=== PATIENT | male | born 1945 | race Caucasian/White ===

== ENCOUNTER → 2017-07-26 13:21 | Outpatient (POV) | payer MEDICARE, OTHER, SELFPAY | PROVIDERS: PCP Internal Medicine; Visit Provider Internal Medicine Nephrology | DX: Z00.00 Encounter for general adult medical examination without abnormal findings (principal) ==

== ENCOUNTER → 2017-12-10 10:49 | Outpatient (CLI) | payer MEDICARE, OTHER, SELFPAY | PROVIDERS: PCP Internal Medicine; Visit Provider Internal Medicine | DX: R55 Syncope and collapse (principal) | CPT/HCPCS: 93005 ==

== ENCOUNTER → 2018-02-28 13:44 | Outpatient (POV) | payer MEDICARE, OTHER, SELFPAY | PROVIDERS: PCP Internal Medicine; Visit Provider Internal Medicine Nephrology | DX: Z00.00 Encounter for general adult medical examination without abnormal findings (principal) ==

== ENCOUNTER → 2018-03-12 09:34 | Outpatient (CLI) | payer MEDICARE, OTHER, SELFPAY ==
--- NOTE | 2018-03-12 09:45 | XR_ITS ---
XR hip LT 2-3V w/pelvis HISTORY: ITS.REASON: LT HIP PAIN ORDERING PHYSICIAN: Adi Pickard PATIENT AGE: 72 years COMPARISON: None FINDINGS: Osteoarthritic changes are present involving the left hip with decrease in the joint space osteosclerosis and osteophyte formation. In addition, there is subchondral lucency in the immediate subchondral portion of the left femoral head with some minimal flattening of the left femoral head on the abduction view. There is also a larger area of subchondral lucency which measures approximately 2.3 cm. There is osteosclerosis of the femoral head is well. There are no previous exams available for comparison. The findings are consistent with avascular sclerosis of the left hip. The larger subchondral lucency may represent a subchondral cyst. Consider MRI for more thorough evaluation. IMPRESSION: 1. There is osteoarthritis of the left hip with a prominent subchondral lucency at 2.3 cm which may represent a subchondral cystic area. 2. Also suspected avascular necrosis of the left femoral head. Consider MRI for confirmation
== END ==
PROVIDERS: PCP Internal Medicine; Visit Provider Internal Medicine
DX: M25.552 Pain in left hip (principal)
CPT/HCPCS: 73502

== ENCOUNTER → 2018-03-21 12:54 | Outpatient (CLI) | payer MEDICARE, OTHER, SELFPAY ==
--- NOTE | 2018-03-21 12:57 | MR_ITS ---
MR hip LT wo con HISTORY: Left hip pain when walking, abnormal radiograph ITS.REASON: LEFT HIP PAIN ORDERING PHYSICIAN: Adi Pickard PATIENT AGE: 72 years COMPARISON: 03/12/2018 TECHNIQUE: Routine multiplanar multiecho sequences are performed without contrast. FINDINGS: There are moderate to severe osteoarthritic changes. There is a 2 cm geographic area of abnormal signal intensity involving the 12:00 region of the femoral head on the left. This is iso to hypointense on T1 and hyperintense on T2 with a central area of decreased T2 signal. There is a peripheral rim of decreased T1 and T2 signal. There is some mild cortical collapse involving the superior aspect of the femoral head. Bone marrow edema is present in the left femoral head and neck. There is a small left hip joint effusion. Edema is also present within the left iliopsoas muscle and just deep to the fascia of the muscle. Small amount of fluid is present in the left inguinal region. A small amount of fluid is present in the right hip joint as well. The right hip has an unremarkable appearance. IMPRESSION: 1. 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 Left hip joint effusion with edema of the left femoral head and neck as well as edema of the left iliopsoas muscle and muscles about the left hip. Small amount fluid is present in the left inguinal region. 3. The right hip has an unremarkable appearance aside from a small right hip joint effusion
== END ==
PROVIDERS: PCP Internal Medicine; Visit Provider Internal Medicine
DX: M25.552 Pain in left hip (principal)
CPT/HCPCS: 73721

== ENCOUNTER → 2018-03-22 12:24 | Outpatient (CLI) | payer MEDICARE, OTHER, SELFPAY ==
--- NOTE | 2018-03-22 12:47 | XR_ITS ---
EXAM: XR cervical spine 5V HISTORY: ITS.REASON: NECK PAIN/STIFFNESS, HEADACHE ORDERING PHYSICIAN: Adi Pickard PATIENT AGE: 72 years COMPARISON: Cervical spine 06/24/2007. FINDINGS: Normal alignment. No fracture or dislocation. No lytic or blastic change. There is disc space narrowing at the C5-6 and C6-7 levels with anterior ossific spurring noted. There is mild neural foraminal narrowing on the left side C5-6 level secondary to spurring of the uncinate joints. The prevertebral soft tissues are normal and the odontoid is normal. IMPRESSION: Mild degenerative disc disease C5-6 and C6-7, no acute pathology identified
[2018-03-22 12:55] LABS: Basophils % 0.5 % (0.1-2.0); Eosinophils # 0.1 K/mm3 (0.0-0.4); Eosinophils % 1.6 % (0.1-12.0); Hematocrit 47.5 % (42.0-52.0); Hemoglobin 15.1 g/dL (14.1-18.0); Lymphocytes # 1.7 K/mm3 (0.7-4.5); Lymphocytes % 21.3 K/mm3 (10-50); Mean Corpuscular HGB Conc 31.9 g/dL (31.8-35.4); Mean Corpuscular Hemoglobin 28.6 pg (27.0-31.2); Mean Corpuscular Volume 89.9 fl (80-94); Mean Platelet Volume 7.1 fl (7.4-10.4); Monocytes # 0.5 K/mm3 (0.1-1.0); Monocytes % 6.6 % (1.7-9.3); Neutrophils # 5.4 K/mm3 (1.8-7.8); Neutrophils % 69.9 % (37.0-80.0); Platelet Count 197 K/mm3 (142-424); Red Blood Count 5.29 M/mm3 (4.60-6.20); Red Cell Distribution Width 12.9 % (11.5-17.5); White Blood Count 7.7 K/mm3 (4.8-10.8)
[2018-03-22 13:31] LABS: Anion Gap 13.9 mEq/L (5-15); Blood Urea Nitrogen 37 mg/dL (7-18); Calcium 8.9 mg/dL (8.5-10.1); Carbon Dioxide 27 mmol/L (21.0-32.0); Chloride 107 mmol/L (98-107); Creatinine,Serum 1.75 mg/dL (0.70-1.30); Estimated Glomerular Filt Rate 39 ml/min (>60); GFR (African American) 47 ML/MIN (>60); Glucose 143 mg/dL (74-106); Potassium 4.9 mmoL/L (3.5-5.1); Sodium 143 mmol/L (136-145)
[2018-03-22 13:42] LABS: Erythrocyte Sedimentation Rate 65 mm/hr (0-20)
== END ==
PROVIDERS: PCP Internal Medicine; Visit Provider Internal Medicine
DX: M54.2 Cervicalgia (principal); R51 Headache; M43.6 Torticollis
CPT/HCPCS: 36415; 72050; 80048; 85025; 85651

== ENCOUNTER 2018-08-15 08:00 | Outpatient (RCR) | payer MEDICARE, BC, SELFPAY | END 2018-08-15 08:05 | disposition home or self-care (01) | LOC: OT 08:00 | PROVIDERS: Visit Provider Orthopaedic Surgery | DX: M25.511 Pain in right shoulder (principal) | CPT/HCPCS: 97014; 97110; 97164; 97165; G0283 ==

== ENCOUNTER → 2018-09-05 13:18 | Outpatient (CLI) | payer MEDICARE, BC, SELFPAY ==
--- NOTE | 2018-09-05 13:24 | MR_ITS ---
MR shoulder RT wo con COMPARISON: None HISTORY: Severe right shoulder pain ORDERING PHYSICIAN: Adi Pickard PATIENT AGE: 72 years TECHNIQUE: Routine multiplanar multiecho sequences are performed without contrast. FINDINGS: There is prominent acromioclavicular hypertrophy with impingement upon the junction of the supraspinatus muscle and tendon causing severe subacromial stenosis. Complete tears present involving the supraspinatus tendon with mild retraction of the musculotendinous fibers posteriorly with high riding humeral head. Subarticular cystic change involves the humeral head posteriorly. The infraspinatus tendon appears intact as does the subscapularis and teres minor tendon. No obvious labral tear. There is mild degree of motion artifact which somewhat obscures fine detail. There is a small shoulder joint effusion. Mild osteoarthritic changes are present at the glenohumeral joint. IMPRESSION: 1. Acromioclavicular arthropathy with bony hypertrophic change with impingement upon the musculotendinous junction of the supraspinatus tendon and muscle with impingement 2. Complete tear of the supraspinatus tendon with mild retraction of the tendon fibers with high riding humeral head 3. Osteoarthritic change of the shoulder with effusion
--- NOTE | 2018-09-05 13:24 | MR_ITS ---
MR cervical spine wo con, MR 3-d myelogram/MRCP HISTORY: Severe neck pain and RT shoulder pain X 6 months. RT arm pain. Getting worse ITS.REASON: NECK PAIN, RIGHT SHOULDER PAIN, WEAKNESS ORDERING PHYSICIAN: Adi Pickard PATIENT AGE: 72 years Comparison: X-RAY 03/22/18 TECHNIQUE: Standard multiplanar multiecho sequences are performed without contrast. 3-D MIP and myelographic images are also rendered and reviewed FINDINGS: There is normal alignment. Craniocervical junction has an unremarkable appearance. C2-C3: Mild prominence of the posterior longitudinal ligament without impingement. C3-C4: Mild degenerative disc disease with minimal disc protrusion in the left paracentral foraminal region with mild left-sided foraminal narrowing. C4-C5: Mild degenerative disc disease with minimal left foraminal narrowing from uncovertebral and facet hypertrophy. There is narrowing of the canal without impingement. C5-C6: Degenerative disc disease with bulging discs/disc osteophyte complex with canal stenosis of 7 mm with mild flattening of the cord anteriorly. There is bilateral lateral recess and foraminal narrowing from uncovertebral hypertrophy appear somewhat more severe on the left. C6-C7: Degenerative disc disease with bulging disc/disc osteophyte complex with canal stenosis of 7 mm with mild flattening of the cord anteriorly. There are slight increase in T2 signal of the cord at this area which could be related to some gliotic change. There is bilateral foraminal narrowing and lateral recess narrowing from the facet and uncovertebral hypertrophy and the bulging disc. C7-T1: Unremarkable. IMPRESSION: 1. Multilevel cervical spondylosis with degenerative disc disease along with facet ligamentous hypertrophy with lateral recess and foraminal narrowing. Please see above for detailed description at each level. There is canal stenosis at C5-C6 and C6-C7 with mild impingement upon the cord at these levels. 2. C5-C6: Degenerative disc disease with bulging discs/disc osteophyte complex with canal stenosis of 7 mm with mild flattening of the cord anteriorly. There is bilateral lateral recess and foraminal narrowing from uncovertebral hypertrophy appear somewhat more severe on the left. 3. C6-C7: Degenerative disc disease with bulging disc/disc osteophyte complex with canal stenosis of 7 mm with mild flattening of the cord anteriorly. There are slight increase in T2 signal of the cord at this area which could be related to some gliotic change. There is bilateral foraminal narrowing and lateral recess narrowing from the facet and uncovertebral hypertrophy and the bulging disc
== END ==
PROVIDERS: PCP Internal Medicine; Visit Provider Internal Medicine
DX: M54.2 Cervicalgia (principal); M25.511 Pain in right shoulder; R53.1 Weakness
CPT/HCPCS: 72141; 73221; 76376

== ENCOUNTER → 2018-10-07 13:17 | Outpatient (CLI) | payer MEDICARE, BC, SELFPAY ==
--- NOTE | 2018-10-07 13:35 | US_ITS ---
US urinary bladder CLINICAL INDICATION: ITS.REASON: CKD, ELEVATED KIDNEY FUNCTION ORDERING PHYSICIAN: Adi Pickard PATIENT AGE: 72 years Comparison: None FINDINGS: The urinary bladder has an unremarkable appearance. The full urinary bladder volume is calculated to be 117 mL's is somewhat small. No obvious bladder mass evident. Post void volume is 16 mL's. Bilateral renal jets are noted. IMPRESSION: Small volume of the urinary bladder with small amount of postvoid residual urine otherwise negative urinary bladder ultrasound
--- NOTE | 2018-10-07 13:35 | US_ITS ---
US Kidney CLINICAL INDICATION: Renal failure ORDERING PHYSICIAN: Adi Pickard PATIENT AGE: 72 years Comparison: 02/28/2017 FINDINGS: Kidneys are normal size shape and position. No hydronephrosis renal mass or significant cortical thinning. Bilateral renal blood flow noted. IMPRESSION: Negative bilateral renal ultrasound
[2018-10-07 14:42] LABS: Collection Time,Urine 21 hours
[2018-10-07 14:52] LABS: Creatinine 24 Hour,Urine 1513 mg/24hr (630-2500); Creatinine,Urine Random 55 mg/dL (20-320); Patient Height,Urine 66 inches; Patient Weight,Urine 198 lbs; Total Protein 24 Hour,Urine 184 mg/24 hr (40-90); Total Protein,Urine Random 6.7 mg/dL (0.0-11.9)
[2018-10-07 15:06] LABS: Creatinine,Serum 2.36 mg/dL (0.70-1.30)
[2018-10-07 15:07] LABS: Creatinine Clearance Urine 44.3 mL/min (85-125); Creatinine,Serum 2.36 mg/dL (0.55-1.02); Total Volume,Urine 2750 mL (250-2400)
== END ==
PROVIDERS: Visit Provider Internal Medicine
DX: R94.4 Abnormal results of kidney function studies (principal); N18.9 Chronic kidney disease, unspecified
CPT/HCPCS: 36415; 76770; 76857; 82575; 84155

== ENCOUNTER → 2018-12-02 12:23 | Outpatient (POV) | payer MEDICARE, BC, SELFPAY | PROVIDERS: Visit Provider Internal Medicine Nephrology | DX: Z00.00 Encounter for general adult medical examination without abnormal findings (principal) ==

== ENCOUNTER → 2018-12-10 10:38 | Outpatient (CLI) | payer MEDICARE, BC, SELFPAY ==
[2018-12-10 10:46] LABS: Microscopic, Urine URINE MICROSCOPIC (MICROSCOPIC)
--- NOTE | 2018-12-10 11:10 | XR_ITS ---
XR chest 2V HISTORY: ITS.REASON: S/P NECK SURGERY,TYPE II DM W/VASCULAR DISEASE ORDERING PHYSICIAN: Adi Pickard PATIENT AGE: 73 years COMPARISON: None FINDINGS: The cardiomediastinal silhouette and pulmonary vascularity are within normal limits. There are minimal atelectatic changes in the right lung base. The remaining lungs are clear. There are postsurgical changes along the lower cervical spine posteriorly. Probable nipple artifact noted in the right lung base. IMPRESSION: Minimal right basilar atelectasis
[2018-12-10 11:12] LABS: Basophils % 0.3 % (0.1-2.0); Eosinophils # 0.1 K/mm3 (0.0-0.4); Eosinophils % 1.6 % (0.1-12.0); Hematocrit 35.7 % (42.0-52.0); Hemoglobin 11.1 g/dL (14.1-18.0); Lymphocytes % 13.7 % (10-50); Mean Corpuscular HGB Conc 31.1 g/dL (31.8-35.4); Mean Corpuscular Hemoglobin 25.9 pg (27.0-31.2); Mean Corpuscular Volume 83.2 fl (80-94); Monocytes # 0.6 K/mm3 (0.1-1.0); Monocytes % 8.1 % (1.7-9.3); Neutrophils # 5.5 K/mm3 (1.8-7.8); Neutrophils % 76.2 % (37.0-80.0); Platelet Count 227 K/mm3 (142-424); Red Blood Count 4.29 M/mm3 (4.60-6.20); Red Cell Distribution Width 13.5 % (11.5-17.5); White Blood Count 7.2 K/mm3 (4.8-10.8)
[2018-12-10 11:15] LABS: Appearance,Urine CLEAR (Clear); Bilirubin,Urine Negative (Negative); Blood, Urine Negative (Negative); Color,Urine YELLOW (Yellow); Glucose,Urine (UA) Negative (Negative); Ketones,Urine Negative (Negative); Leukocyte Esterase,Urine Negative (Negative); Nitrate,Urine Negative (Negative); PH,Urine 5.5 (5.0-8.5); Protein,Urine Negative (Negative); Urobilinogen,Urine 0.2 EU/dl (0.2)
[2018-12-10 11:37] LABS: Alanine Aminotransferase 54 U/L (12-78); Albumin Level 2.7 gm/dL (3.4-5.0); Albumin/Globulin Ratio 0.5 (1.1-1.8); Alkaline Phosphatase 70 U/L (46-116); Anion Gap 15.2 mEq/L (5-15); Aspartate Amino Transferase 40 U/L (15-37); Bilirubin,Total 0.4 mg/dL (0.2-1.0); Blood Urea Nitrogen 26 mg/dL (7-18); Calcium 8.8 mg/dL (8.5-10.1); Carbon Dioxide 29 mmol/L (21.0-32.0); Chloride 94 mmol/L (98-107); Creatinine,Serum 1.65 mg/dL (0.70-1.30); Estimated Glomerular Filt Rate 41 ml/min (>60); GFR (African American) 50 ML/MIN (>60); Globulin 5.3 gm/dl (1.3-3.2); Glucose 131 mg/dL (74-106); Potassium 4.2 mmoL/L (3.5-5.1); Sodium 134 mmol/L (136-145); Troponin I < 0.02 ng/ml (0.00-0.06)
[2018-12-10 11:40] LABS: Bacteria,Urine 1+ /lpf; Squamous Epithelial Cell,Urine Occasional #/hpf (0-5); WBC,Urine Occasional #/hpf (0-3)
[2018-12-10 12:16] LABS: Erythrocyte Sedimentation Rate 73 mm/hr (0-20)
== END ==
PROVIDERS: Visit Provider Internal Medicine
DX: R41.0 Disorientation, unspecified; N18.3 Chronic kidney disease, stage 3 (moderate); E11.59 Type 2 diabetes mellitus with other circulatory complications
CPT/HCPCS: 36415; 71046; 80053; 81001; 84484; 85025; 85651; 87040; 87086; 93005

== ENCOUNTER → 2018-12-25 16:42 | Outpatient (CLI) | payer MEDICARE, BC, SELFPAY ==
[2018-12-25 16:49] LABS: Microscopic, Urine URINE MICROSCOPIC (MICROSCOPIC)
[2018-12-25 17:00] LABS: Appearance,Urine CLEAR (Clear); Bilirubin,Urine Negative (Negative); Blood, Urine Negative (Negative); Color,Urine YELLOW (Yellow); Glucose,Urine (UA) Negative (Negative); Ketones,Urine Negative (Negative); Leukocyte Esterase,Urine Negative (Negative); Nitrate,Urine Negative (Negative); PH,Urine 5.5 (5.0-8.5); Protein,Urine Negative (Negative); Urobilinogen,Urine 0.2 EU/dl (0.2)
[2018-12-25 17:09] LABS: Bacteria,Urine Trace /lpf; Squamous Epithelial Cell,Urine Occasional #/hpf (0-5); WBC,Urine Occasional #/hpf (0-3)
== END ==
PROVIDERS: Visit Provider Internal Medicine
DX: N39.0 Urinary tract infection, site not specified (principal); E11.22 Type 2 diabetes mellitus with diabetic chronic kidney disease
CPT/HCPCS: 81001

== ENCOUNTER → 2019-02-27 12:54 | Outpatient (POV) | payer MEDICARE, BC, SELFPAY | PROVIDERS: Visit Provider Internal Medicine Nephrology | DX: Z00.00 Encounter for general adult medical examination without abnormal findings (principal) ==

== ENCOUNTER → 2019-04-01 13:29 | Outpatient (CLI) | payer MEDICARE, BC, SELFPAY ==
--- NOTE | 2019-04-01 13:32 | US_ITS ---
APPROVED REPORT Exam Type: Lower Extremity Segmental Pressures Advertising Space Clerk: Madonna Quintanilla RVT Indications Claudication: Bilaterally Rest Pain: Bilaterally CAD Risk Factors Hypertension CAD Cardiac Disease Diabetes Pressures/Indices Right Indices Left Indices Brachial 122.00 mmHg Brachial 117.00 mmHg Low Thigh 151.00 mmHg 1.24 Low Thigh 135.00 mmHg 1.11 Calf 254.00 mmHg 0.00 Calf 222.00 mmHg 1.82 Ankle(PT) 190.00 mmHg 1.56 Ankle(PT) 254.00 mmHg 0.00 Ankle(DP) 254.00 mmHg 0.00 Ankle(DP) 254.00 mmHg 0.00 Digit 95.00 mmHg 0.78 Digit 90.00 mmHg 0.74 Findings RT JUAN:1.56 LT JUAN:NON COMPRESSIBLE RT TBI:0.78 LT TBI:0.74 dECREASED WAVEFORM LT ANKLE NORMAL PULSES BONNIE. 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 Electronically signed by : Rigo Mosquera MD 04/02/2019 18:59:56
== END ==
PROVIDERS: PCP Internal Medicine; Visit Provider Podiatrist
DX: R09.89 Other specified symptoms and signs involving the circulatory and respiratory systems (principal)
CPT/HCPCS: 93923

== ENCOUNTER → 2020-09-30 14:37 | Outpatient (POV) | payer MEDICARE, BC, SELFPAY | PROVIDERS: Visit Provider Internal Medicine Nephrology | DX: Z00.00 Encounter for general adult medical examination without abnormal findings (principal) ==

== ENCOUNTER → 2020-12-28 10:32 | Outpatient (CLI) | payer MEDICARE, BC, SELFPAY | PROVIDERS: PCP Internal Medicine; Visit Provider Internal Medicine | DX: Z20.822 Contact with and (suspected) exposure to COVID-19 (principal) | CPT/HCPCS: U0003 ==

== ENCOUNTER → 2021-02-07 14:36 | Outpatient (POV) | payer MEDICARE, BC, SELFPAY | PROVIDERS: Visit Provider Internal Medicine Nephrology | DX: Z00.00 Encounter for general adult medical examination without abnormal findings (principal) ==

== ENCOUNTER → 2021-05-20 09:49 | Outpatient (CLI) | payer MEDICARE, BC, SELFPAY ==
[2021-05-20 09:53] LABS: Microscopic, Urine URINE MICROSCOPIC (MICROSCOPIC)
[2021-05-20 10:11] LABS: Appearance,Urine CLEAR (Clear); Bilirubin,Urine Negative (Negative); Blood, Urine Negative (Negative); Color,Urine YELLOW (Yellow); Glucose,Urine (UA) 3+ (Negative); Ketones,Urine Negative (Negative); Leukocyte Esterase,Urine Negative (Negative); Nitrate,Urine Negative (Negative); Protein,Urine Negative (Negative); Urobilinogen,Urine 0.2 EU/dl (0.2)
[2021-05-20 10:23] LABS: Creatinine,Urine Random 106 mg/dL (Not Estab.)
[2021-05-20 10:25] LABS: Squamous Epithelial Cell,Urine Occasional #/hpf (0-5)
[2021-05-20 11:15] LABS: Basophils # 0.1 K/mm3 (0-0.2); Basophils % 1.5 % (0.1-2.0); Eosinophils # 0.5 K/mm3 (0.0-0.4); Eosinophils % 7.4 % (0.1-12.0); Hematocrit 49.2 % (42.0-52.0); Hemoglobin 15.4 g/dL (14.1-18.0); Lymphocytes # 1.5 K/mm3 (0.7-4.5); Lymphocytes % 20.6 % (10-50); Mean Corpuscular HGB Conc 31.2 g/dL (31.8-35.4); Mean Corpuscular Hemoglobin 29.8 pg (27.0-31.2); Mean Corpuscular Volume 95.4 fl (80-94); Mean Platelet Volume 8.1 fl (7.4-10.4); Monocytes # 0.5 K/mm3 (0.1-1.0); Monocytes % 6.8 % (1.7-9.3); Neutrophils # 4.7 K/mm3 (1.8-7.8); Neutrophils % 63.6 % (37.0-80.0); Platelet Count 171 K/mm3 (142-424); Red Blood Count 5.16 M/mm3 (4.60-6.20); Red Cell Distribution Width 15.6 % (11.5-17.5); White Blood Count 7.3 K/mm3 (4.8-10.8)
[2021-05-20 11:27] LABS: Chloride 103 mmol/L (98-107); Sodium 140 mmol/L (136-145)
[2021-05-20 11:28] LABS: Albumin Level 4.5 g/dl (3.5-5.0); Potassium 5.1 mmoL/L (3.5-5.1)
[2021-05-20 11:30] LABS: Blood Urea Nitrogen 52 mg/dl (9-20); Estimated Glomerular Filt Rate 29 ml/min (>60); GFR (African American) 35 ML/MIN (>60)
[2021-05-20 11:31] LABS: Anion Gap 16.1 mEq/L (5-15); Carbon Dioxide 26 mmol/L (22.0-30.0); Glucose 252 mg/dl (74-100); Phosphorous 4.2 mg/dl (2.5-4.5)
== END ==
PROVIDERS: Visit Provider Internal Medicine Nephrology
DX: N18.32 Chronic kidney disease, stage 3b (principal)
CPT/HCPCS: 36415; 80069; 81001; 82570; 84155; 85025

== ENCOUNTER → 2021-06-02 14:12 | Outpatient (POV) | payer MEDICARE, BC, SELFPAY | PROVIDERS: Visit Provider Internal Medicine Nephrology | DX: Z00.00 Encounter for general adult medical examination without abnormal findings (principal) ==

== ENCOUNTER → 2021-06-04 10:31 | Outpatient (CLI) | payer MEDICARE, BC, SELFPAY | PROVIDERS: Visit Provider Ophthalmology | DX: Z01.812 Encounter for preprocedural laboratory examination (principal); Z11.52 Encounter for screening for COVID-19 | CPT/HCPCS: C9803; U0003; U0005 ==

== ENCOUNTER 2021-06-07 08:02 | Day surgery (SDC) | payer MEDICARE, BC, SELFPAY ==
[2021-06-01 14:29] VITALS: BMI 36.4
[2021-06-07] VITALS (7 sets, daily range): BP systolic 114–138; BP diastolic 65–73; PULSE 60–72; RESP 16–18; TEMP 36.6–36.8; O2SAT 94–100
[2022-02-23 10:56] LABS: POC Glucose,Bedside 360 (70-110)
== END 2021-06-07 10:11 | disposition home or self-care (01) ==
PROVIDERS: PCP Internal Medicine; Visit Provider Ophthalmology
DX: H25.813 Combined forms of age-related cataract, bilateral (principal); H53.149 Visual discomfort, unspecified; H02.831 Dermatochalasis of right upper eyelid; H02.834 Dermatochalasis of left upper eyelid; E11.9 Type 2 diabetes mellitus without complications; M19.90 Unspecified osteoarthritis, unspecified site; I10 Essential (primary) hypertension; Z85.9 Personal history of malignant neoplasm, unspecified; Z79.82 Long term (current) use of aspirin; Z79.899 Other long term (current) drug therapy
CPT/HCPCS: 66984; 82962; V2632

== ENCOUNTER → 2021-06-18 10:45 | Outpatient (CLI) | payer MEDICARE, BC, SELFPAY | PROVIDERS: PCP Internal Medicine; Visit Provider Ophthalmology | DX: Z01.812 Encounter for preprocedural laboratory examination (principal); Z11.52 Encounter for screening for COVID-19 | CPT/HCPCS: C9803; U0003; U0005 ==

== ENCOUNTER 2021-06-21 08:18 | Day surgery (SDC) | payer MEDICARE, BC, SELFPAY ==
[2021-06-17 12:35] VITALS: BMI 36.0
[2021-06-21] VITALS (8 sets, daily range): BP systolic 99–138; BP diastolic 58–75; PULSE 63–70; RESP 16–18; TEMP 36.6; O2SAT 95–100
== END 2021-06-21 09:40 | disposition home or self-care (01) ==
LOC: OR 08:20
PROVIDERS: PCP Internal Medicine; Visit Provider Ophthalmology
DX: H25.813 Combined forms of age-related cataract, bilateral (principal); H53.149 Visual discomfort, unspecified; H02.831 Dermatochalasis of right upper eyelid; H02.834 Dermatochalasis of left upper eyelid; H21.81 Floppy iris syndrome; E11.9 Type 2 diabetes mellitus without complications; F41.9 Anxiety disorder, unspecified; M19.90 Unspecified osteoarthritis, unspecified site; I10 Essential (primary) hypertension; E78.5 Hyperlipidemia, unspecified
CPT/HCPCS: 66982; V2632

== ENCOUNTER → 2021-07-27 12:26 | Outpatient (CLI) | payer MEDICARE, BC, SELFPAY ==
[2021-07-27 14:01] LABS: Basophils % 0.5 % (0.1-2.0); Eosinophils # 0.2 K/mm3 (0.0-0.4); Eosinophils % 4.1 % (0.1-12.0); Hematocrit 50.8 % (42.0-52.0); Hemoglobin 15.4 g/dL (14.1-18.0); Lymphocytes # 1.1 K/mm3 (0.7-4.5); Lymphocytes % 21.1 % (10-50); Mean Corpuscular HGB Conc 30.3 g/dL (31.8-35.4); Mean Corpuscular Hemoglobin 29.8 pg (27.0-31.2); Mean Corpuscular Volume 98.4 fl (80-94); Mean Platelet Volume 8.5 fl (7.4-10.4); Monocytes # 0.3 K/mm3 (0.1-1.0); Monocytes % 5.4 % (1.7-9.3); Neutrophils # 3.4 K/mm3 (1.8-7.8); Neutrophils % 68.9 % (37.0-80.0); Platelet Count 172 K/mm3 (142-424); Red Blood Count 5.17 M/mm3 (4.60-6.20); Red Cell Distribution Width 15.5 % (11.5-17.5)
[2021-07-27 14:43] LABS: Alanine Aminotransferase 60 U/L (12-78); Albumin/Globulin Ratio 1.7 (1.1-1.8); Alkaline Phosphatase 76 U/L (38-126); Anion Gap 13.6 mEq/L (5-15); Aspartate Amino Transferase 55 U/L (17-59); Bilirubin,Total 0.3 mg/dl (0.2-1.3); Blood Urea Nitrogen 57 mg/dl (9-20); Calcium 8.4 mg/dl (8.4-10.2); Carbon Dioxide 24 mmol/L (22.0-30.0); Chloride 105 mmol/L (98-107); Cholesterol 124 mg/dl (140-200); Estimated Glomerular Filt Rate 31 ml/min (>60); GFR (African American) 37 ML/MIN (>60); Globulin 2.3 g/dL (1.3-3.2); Glucose 220 mg/dl (74-100); HDL Cholesterol 31 mg/dl (40-60); Potassium 4.6 mmoL/L (3.5-5.1); Sodium 138 mmol/L (136-145); Total Protein,Serum 6.3 g/dl (6.3-8.2); Triglycerides 201 mg/dl (30-150); Uric Acid 5.9 mg/dl (3.5-8.5); VLDL Cholesterol 40 mg/dL (0-40)
[2021-07-27 14:54] LABS: Direct LDL Cholesterol 56.74 mg/dL (100-129)
[2021-07-27 15:02] LABS: Hemoglobin A1C 9.8 % (4.0-6.0)
== END ==
PROVIDERS: Visit Provider Internal Medicine
DX: I25.10 Atherosclerotic heart disease of native coronary artery without angina pectoris (principal); I10 Essential (primary) hypertension; E11.9 Type 2 diabetes mellitus without complications; E78.5 Hyperlipidemia, unspecified; M15.0 Primary generalized (osteo)arthritis; N19 Unspecified kidney failure; M1A.00X0 Idiopathic chronic gout, unspecified site, without tophus (tophi); Z79.4 Long term (current) use of insulin
CPT/HCPCS: 80053; 80061; 83036; 84550; 85025

== ENCOUNTER 2021-08-04 09:59 | Emergency (ER) | payer MEDICARE, BC, SELFPAY ==
[2021-08-04 10:45] VITALS: BP 131/59; PULSE 89; RESP 18; TEMP 36.9; O2SAT 95; BMI 35.3
--- NOTE | 2021-08-04 11:01 | HMH.EDUTC ---
[facility] [place] Clinical Impression: Vomiting Qualifiers: Vomiting type: unspecified Nausea presence: with nausea Qualified Code(s): R11.2 - Nausea with vomiting, unspecified Sinusitis Qualifiers: Sinusitis location: unspecified location Chronicity: unspecified Qualified Code(s): J32.9 - Chronic sinusitis, unspecified Disposition: Home, Self-Care Condition on Discharge: Good Instructions: Sinusitis, DI for Sinusitis, Nausea and Vomiting-Adult, Ondansetron Additional Instructions: Drink extra fluids with and between meals. If you have difficulty drinking, try very small amounts of water or suck on ice chips. ? Avoid fruit juices, as these do not replace minerals and can actually increase diarrhea. ? Children and adults can use sports drinks to replenish electrolytes. Younger children and infants should use products formulated for children, like oral rehydration solutions. ? Eat food in small amounts and let your stomach recover. ? Get lots of rest. You may feel tired or weak. ? No greasy or fried foods for the next 24-48 hours BRAT diet Bananas Rice Apples and Mehama ? Make sure to drink plenty of liquids ? Return if needed ? Straight to ER if any life threatening symptoms ? Zofran as prescribed Take medication as prescribed Return if needed ? Follow up with family doctor in the next 48-72 hours if no improvement or any worsening of symptoms Prescriptions: Amoxicillin/Potassium Clav [Amox-Clav 875-125 mg Tablet] 1 tab PO BID #14 tab Transmission Status: Pending to [facility] Fluticasone Propionate [Flonase 50mcg nasal spray 16gm] 1 spr NS DAILY #1 each Transmission Status: Pending to [facility] Ondansetron [Zofran 4mg ODT] 4 mg PO TIDP PRN #10 tab PRN Reason: Nausea Transmission Status: Pending to [facility] Referrals: Adi Pickard [Primary Care Provider] - As needed Time of Disposition: 11:58 Medical Decision Making - Jabari Inquiry Pt receiving controlled substance: No Jabari was queried for this patient: No Vital Signs: 08/04/21 10:45 Temperature 98.5 F Temperature Source Oral Pulse Rate [Right Brachial] 89 Respiratory Rate 18 Blood Pressure [Right Arm] 131/59 L Blood Pressure Mean [Right Arm] 83 Blood Pressure Source [Right Arm] Automatic Cuff Blood Pressure Position [Right Arm] Sitting 02 Sat by Pulse Oximetry 95 Oxygen Delivery Method Room Air Orders (Tests/Meds): ED MEDICATIONS Discontinued Medications Generic Name Dose Route Start Last Admin Trade Name Sony PRSadaf Reason Stop Dose Admin Ondansetron HCl 4 mg 08/04/21 11:07 08/04/21 11:09 Ondansetron 4mg Odt SL 08/04/21 11:08 4 mg ONCE ONE Administration Medical Decision Narrative: After Zofran patient feeling much better able to drink 2 8oz glasses of ice water in UTC without vomiting [facility] [place] - General Stated complaint: vomiting,diarrhea Time Seen by Provider: 08/04/21 11:31 Mode of Arrival: Ambulatory Source of Information: Patient Limitations: No Limitations Description of Symptoms (Recalled from Triage Doc. by RN): PATIENT C/O VOMITING, NAUSEA AND HEADACHE HEENT Symptoms (Recalled from RN notes): No Resp Symptoms (Recalled from RN notes): No Skin Symptoms (Recalled from RN notes): No MS Symptoms (Recalled from RN notes): No Functional Status (Recalled from RN notes): WNL - History of Present Illness Provider Complaint: Patient states that he has been having sinus pain and pressure, Nausea and vomiting States that he hasnt been able to keep much down today States that he was worried if he didnt come in and get something he would get dehydrated - Related Data Home Medications Medication Instructions Recorded Confirmed doxazosin 2 mg tablet 2 mg PO QHS #30 tab 03/27/19 06/21/21 escitalopram oxalate 20 mg tablet 20 mg PO DAILY #30 tab 03/27/19 06/21/21 furosemide 40 mg tablet 40 mg PO DAILY #30 tab 03/27/19 06/21/21 gabapentin 100 mg capsule 100 mg PO QHS #30 cap 03/27/1906/21
[2021-08-04 12:05] VITALS: BP 131/59; PULSE 89; RESP 18; TEMP 36.9; O2SAT 95
== END 2021-08-04 12:09 | disposition home or self-care (01) ==
PROVIDERS: Emergency Provider Nurse Practitioner; PCP Internal Medicine
DX: R11.2 Nausea with vomiting, unspecified (principal); R19.7 Diarrhea, unspecified; R51.9 Headache, unspecified; I10 Essential (primary) hypertension; N18.9 Chronic kidney disease, unspecified; E11.9 Type 2 diabetes mellitus without complications; E78.5 Hyperlipidemia, unspecified; M19.90 Unspecified osteoarthritis, unspecified site; J32.9 Chronic sinusitis, unspecified; Z79.51 Long term (current) use of inhaled steroids; Z79.4 Long term (current) use of insulin; Z79.84 Long term (current) use of oral hypoglycemic drugs; Z79.899 Other long term (current) drug therapy; Z96.642 Presence of left artificial hip joint; Z82.49 Family history of ischemic heart disease and other diseases of the circulatory system; Z80.9 Family history of malignant neoplasm, unspecified
CPT/HCPCS: 99283

== ENCOUNTER → 2021-08-12 10:51 | Outpatient (CLI) | payer MEDICARE, BC, SELFPAY ==
--- NOTE | 2021-08-12 11:21 | XR_ITS ---
FINAL REPORT CLINICAL HISTORY: ABD. PAIN. TYPE 2 DIAB. vascular disease, patient states no appetite, weight loss FINDINGS: Chest: A single view of the chest demonstrates mild right lung base atelectasis or scarring. Abdomen: Flat and upright views of the abdomen demonstrate a nonobstructive bowel gas pattern. There is no free air. There are presumed phleboliths in the pelvis. There is a moderate amount of retained stool. There are postoperative changes from left hip arthroplasty. IMPRESSION: Mild right lung base atelectasis or scarring. Moderate retained stool. Reviewed, Interpreted and Dictated by Biju Jefferson III, MD Transcribed by Louis Dickson Authenticated by Biju Jefferson III, MD on 08/12/2021 12:45:57 PM [facility]
[2021-08-12 11:44] LABS: Basophils # 0.1 K/mm3 (0-0.2); Basophils % 1.2 % (0.1-2.0); Eosinophils # 0.1 K/mm3 (0.0-0.4); Eosinophils % 1.4 % (0.1-12.0); Hematocrit 51.9 % (42.0-52.0); Hemoglobin 15.9 g/dL (14.1-18.0); Lymphocytes # 1.1 K/mm3 (0.7-4.5); Lymphocytes % 14.5 % (10-50); Mean Corpuscular HGB Conc 30.6 g/dL (31.8-35.4); Mean Corpuscular Hemoglobin 29.8 pg (27.0-31.2); Mean Corpuscular Volume 97.4 fl (80-94); Mean Platelet Volume 8.2 fl (7.4-10.4); Monocytes # 0.4 K/mm3 (0.1-1.0); Monocytes % 5.2 % (1.7-9.3); Neutrophils % 77.7 % (37.0-80.0); Platelet Count 166 K/mm3 (142-424); Red Blood Count 5.33 M/mm3 (4.60-6.20); Red Cell Distribution Width 15.2 % (11.5-17.5); White Blood Count 7.7 K/mm3 (4.8-10.8)
[2021-08-12 11:52] LABS: Alanine Aminotransferase 51 U/L (12-78); Albumin Level 4.2 g/dl (3.5-5.0); Albumin/Globulin Ratio 1.8 (1.1-1.8); Alkaline Phosphatase 73 U/L (38-126); Anion Gap 14.6 mEq/L (5-15); Aspartate Amino Transferase 39 U/L (17-59); Bilirubin,Total 0.5 mg/dl (0.2-1.3); Blood Urea Nitrogen 51 mg/dl (9-20); Calcium 8.6 mg/dl (8.4-10.2); Carbon Dioxide 26 mmol/L (22.0-30.0); Chloride 102 mmol/L (98-107); Estimated Glomerular Filt Rate 28 ml/min (>60); GFR (African American) 34 ML/MIN (>60); Globulin 2.3 g/dL (1.3-3.2); Glucose 314 mg/dl (74-100); Potassium 5.6 mmoL/L (3.5-5.1); Sodium 137 mmol/L (136-145); Total Protein,Serum 6.5 g/dl (6.3-8.2)
== END ==
PROVIDERS: PCP Internal Medicine; Visit Provider Internal Medicine
DX: E11.59 Type 2 diabetes mellitus with other circulatory complications (principal); K52.9 Noninfective gastroenteritis and colitis, unspecified; Z79.4 Long term (current) use of insulin
CPT/HCPCS: 36415; 74021; 80053; 85025

== ENCOUNTER → 2021-09-01 09:05 | Outpatient (CLI) | payer MEDICARE, BC, SELFPAY ==
[2021-09-01 09:14] LABS: Microscopic, Urine URINE MICROSCOPIC (MICROSCOPIC)
[2021-09-01 09:49] LABS: Hematocrit 47.1 % (42.0-52.0); Hemoglobin 14.9 g/dL (14.1-18.0); Mean Corpuscular HGB Conc 31.6 g/dL (31.8-35.4); Mean Corpuscular Hemoglobin 30.9 pg (27.0-31.2); Mean Corpuscular Volume 97.8 fl (80-94); Platelet Count 143 K/mm3 (142-424); Red Blood Count 4.82 M/mm3 (4.60-6.20); White Blood Count 6.1 K/mm3 (4.8-10.8)
[2021-09-01 09:52] LABS: Appearance,Urine CLEAR (Clear); Bilirubin,Urine Negative (Negative); Blood, Urine Negative (Negative); Color,Urine YELLOW (Yellow); Glucose,Urine (UA) 1+ (Negative); Ketones,Urine Negative (Negative); Leukocyte Esterase,Urine Negative (Negative); Nitrate,Urine Negative (Negative); Protein,Urine Negative (Negative); Specific Gravity, Urine >= 1.030 (1.005-1.030); Urobilinogen,Urine 0.2 EU/dl (0.2)
[2021-09-01 10:40] LABS: Anion Gap 12.4 mEq/L (5-15); Blood Urea Nitrogen 22 mg/dl (9-20); Calcium 8.4 mg/dl (8.4-10.2); Carbon Dioxide 27 mmol/L (22.0-30.0); Chloride 107 mmol/L (98-107); Estimated Glomerular Filt Rate 46 ml/min (>60); GFR (African American) 55 ML/MIN (>60); Glucose 57 mg/dl (74-100); Phosphorous 3.1 mg/dl (2.5-4.5); Potassium 4.4 mmoL/L (3.5-5.1); Sodium 142 mmol/L (136-145)
[2021-09-01 12:35] LABS: Bacteria,Urine Trace /lpf; Mucus,Urine 1+ /lpf; Squamous Epithelial Cell,Urine Occasional #/hpf (0-5); WBC,Urine Occasional #/hpf (0-3)
[2021-09-01 12:49] LABS: Creatinine,Urine Random 169 mg/dL (Not Estab.)
== END ==
PROVIDERS: Visit Provider Internal Medicine Nephrology
DX: N18.32 Chronic kidney disease, stage 3b (principal)
CPT/HCPCS: 36415; 80069; 81001; 82570; 84155; 85014; 85018; 85048; 85049

== ENCOUNTER → 2021-09-05 13:46 | Outpatient (POV) | payer MEDICARE, BC, SELFPAY | PROVIDERS: Visit Provider Internal Medicine Nephrology | DX: Z00.00 Encounter for general adult medical examination without abnormal findings (principal) ==

== ENCOUNTER → 2021-11-03 10:24 | Outpatient (CLI) | payer MEDICARE, BC, SELFPAY ==
[2021-11-03 10:36] LABS: Adenovirus F 40/41, stool Not Detected (NotDetected); Astrovirus Not Detected (NotDetected); Campylobacter Not Detected (NotDetected); Clostridium Difficile A/B, PCR Not Detected (NotDetected); Cryptosporidium Not Detected (NotDetected); Cyclospora Cayetanesis Not Detected (NotDetected); Entamoeba histolytica Not Detected (NotDetected); Enteroaggregative E coli Not Detected (NotDetected); Enteropathogenic E coli Not Detected (NotDetected); Enterotoxigenic E coli Not Detected (NotDetected); Giardia lamblia Not Detected (NotDetected); Norovirus Not Detected (NotDetected); Plesimonas Shigalloides, PCR Not Detected (NotDetected); Rotavirus A Not Detected (NotDetected); Salmonella, PCR Not Detected (NotDetected); Sapovirus Not Detected (NotDetected); Shiga-like toxin E coli Not Detected (NotDetected); Shigella Enterovasive E coli Not Detected (NotDetected); Vibrio Cholerae Not Detected (NotDetected); Vibrio, PCR Not Detected (NotDetected); Yersinia Entercolitica, PCR Not Detected (NotDetected)
== END ==
PROVIDERS: PCP Internal Medicine; Visit Provider Internal Medicine
DX: R19.7 Diarrhea, unspecified (principal)
CPT/HCPCS: 87205; 87506

== ENCOUNTER → 2022-02-03 11:25 | Outpatient (CLI) | payer MEDICARE, BC, SELFPAY ==
[2022-02-03 17:12] LABS: Alanine Aminotransferase 59 U/L (12-78); Albumin Level 4.2 g/dl (3.5-5.0); Albumin/Globulin Ratio 1.6 (1.1-1.8); Alkaline Phosphatase 110 U/L (38-126); Anion Gap 17.6 mEq/L (5-15); Aspartate Amino Transferase 49 U/L (17-59); Bilirubin,Total 0.2 mg/dl (0.2-1.3); Blood Urea Nitrogen 64 mg/dl (9-20); Calcium 8.5 mg/dl (8.4-10.2); Carbon Dioxide 26 mmol/L (22.0-30.0); Chloride 99 mmol/L (98-107); Chol/HDL Ratio 4.1 (1-3.5); Cholesterol 150 mg/dl (140-200); Estimated Glomerular Filt Rate 19 ml/min (>60); GFR (African American) 23 ML/MIN (>60); Globulin 2.6 g/dL (1.3-3.2); Glucose 239 mg/dl (74-100); HDL Cholesterol 37 mg/dl (40-60); Potassium 4.6 mmoL/L (3.5-5.1); Sodium 138 mmol/L (136-145); Total Protein,Serum 6.8 g/dl (6.3-8.2); Triglycerides 304 mg/dl (30-150); VLDL Cholesterol 61 mg/dL (0-40)
[2022-02-03 17:29] LABS: Direct LDL Cholesterol 67.51 mg/dL (100-129)
[2022-02-03 17:43] LABS: Prostate Specific Ag Screen 1.3 ng/ml (0.0-4.0)
[2022-02-03 20:11] LABS: Hemoglobin A1C > 14.0 % (4.0-6.0)
== END ==
PROVIDERS: PCP Internal Medicine; Visit Provider Internal Medicine
DX: E11.65 Type 2 diabetes mellitus with hyperglycemia (principal); E11.59 Type 2 diabetes mellitus with other circulatory complications; I25.10 Atherosclerotic heart disease of native coronary artery without angina pectoris; I10 Essential (primary) hypertension; E78.5 Hyperlipidemia, unspecified; Z79.4 Long term (current) use of insulin; Z12.5 Encounter for screening for malignant neoplasm of prostate
CPT/HCPCS: 80053; 80061; 83036; G0103

== ENCOUNTER → 2022-03-20 10:39 | Outpatient (CLI) | payer MEDICARE, BC, SELFPAY ==
--- NOTE | 2022-03-20 10:45 | XR_ITS ---
FINAL REPORT CLINICAL HISTORY: ELBOW INJURY, C/O POSTERIOR ELBOW PAIN FINDINGS: Four views of the right elbow were obtained. There are mild degenerative changes. There is no acute fracture or dislocation. The joint spaces are intact. Soft tissue swelling is seen overlying the olecranon. IMPRESSION: No acute fracture Mild degenerative changes with soft tissue swelling overlying the olecranon which could represent olecranon bursitis. Reviewed, Interpreted and Dictated by Biju Jefferson III, MD Transcribed by Talisha Arellano Authenticated and [facility]
== END ==
PROVIDERS: PCP Internal Medicine; Visit Provider Internal Medicine
DX: M25.531 Pain in right wrist (principal); M25.431 Effusion, right wrist
CPT/HCPCS: 73080

== ENCOUNTER → 2022-04-07 10:27 | Outpatient (CLI) | payer MEDICARE, BC, SELFPAY ==
[2022-04-07 10:44] LABS: Microscopic, Urine URINE MICROSCOPIC (MICROSCOPIC)
[2022-04-07 11:09] LABS: Appearance,Urine CLEAR (Clear); Bilirubin,Urine Negative (Negative); Blood, Urine Negative (Negative); Color,Urine YELLOW (Yellow); Glucose,Urine (UA) 1+ (Negative); Ketones,Urine Negative (Negative); Leukocyte Esterase,Urine Negative (Negative); Nitrate,Urine Negative (Negative); PH,Urine 5.5 (5.0-8.5); Protein,Urine Negative (Negative); Specific Gravity, Urine 1.025 (1.005-1.030); Urobilinogen,Urine 0.2 EU/dl (0.2)
[2022-04-07 11:12] LABS: Hematocrit 49.1 % (42.0-52.0); Hemoglobin 15.3 g/dL (14.1-18.0); Mean Corpuscular HGB Conc 31.1 g/dL (31.8-35.4); Mean Corpuscular Volume 96.3 fl (80-94); Platelet Count 146 K/mm3 (142-424); White Blood Count 6.7 K/mm3 (4.8-10.8)
[2022-04-07 11:20] LABS: Bacteria,Urine Trace /lpf; Creatinine,Urine Random 89 mg/dL (Not Estab.); Squamous Epithelial Cell,Urine Occasional #/hpf (0-5)
[2022-04-07 12:19] LABS: 25-OH Vitamin D, Total 28.1 ng/mL (30-100)
[2022-04-07 12:21] LABS: Albumin Level 4.2 g/dl (3.5-5.0); Anion Gap 18.4 mEq/L (5-15); Blood Urea Nitrogen 43 mg/dl (9-20); Calcium 8.9 mg/dl (8.4-10.2); Carbon Dioxide 29 mmol/L (22.0-30.0); Chloride 99 mmol/L (98-107); Estimated Glomerular Filt Rate 28 ml/min (>60); GFR (African American) 34 ML/MIN (>60); Glucose 199 mg/dl (74-100); Phosphorous 5.1 mg/dl (2.5-4.5); Potassium 5.4 mmoL/L (3.5-5.1); Sodium 141 mmol/L (136-145)
[2022-04-07 12:33] LABS: Intact Parathyroid Hormone 294.9 pg/mL (7.5-53.5)
== END ==
PROVIDERS: PCP Internal Medicine; Visit Provider Internal Medicine Nephrology
DX: N18.32 Chronic kidney disease, stage 3b (principal)
CPT/HCPCS: 36415; 80069; 81001; 82306; 82570; 83970; 84155; 85014; 85018; 85048; 85049

== ENCOUNTER → 2022-04-10 13:36 | Outpatient (POV) | payer MEDICARE, BC, SELFPAY | PROVIDERS: Visit Provider Internal Medicine Nephrology | DX: Z00.00 Encounter for general adult medical examination without abnormal findings (principal) ==

== ENCOUNTER → 2022-05-02 17:05 | Outpatient (CLI) | payer MEDICARE, BC, SELFPAY ==
[2022-05-02 19:26] LABS: Hemoglobin A1C 10.6 % (4.0-6.0)
== END ==
PROVIDERS: PCP Internal Medicine; Visit Provider Internal Medicine
DX: E11.59 Type 2 diabetes mellitus with other circulatory complications (principal); I10 Essential (primary) hypertension; Z79.4 Long term (current) use of insulin
CPT/HCPCS: 83036

== ENCOUNTER → 2022-07-25 10:11 | Outpatient (CLI) | payer MEDICARE, BC, SELFPAY ==
[2022-07-25 10:18] LABS: Microscopic, Urine URINE MICROSCOPIC (MICROSCOPIC)
[2022-07-25 10:55] LABS: Appearance,Urine CLEAR (Clear); Bilirubin,Urine Negative (Negative); Blood, Urine Negative (Negative); Color,Urine YELLOW (Yellow); Glucose,Urine (UA) 2+ (Negative); Ketones,Urine Negative (Negative); Leukocyte Esterase,Urine Negative (Negative); Nitrate,Urine Negative (Negative); PH,Urine 5.5 (5.0-8.5); Protein,Urine Negative (Negative); Urobilinogen,Urine 0.2 EU/dl (0.2)
[2022-07-25 10:56] LABS: Hematocrit 46.7 % (42.0-52.0); Hemoglobin 15.3 g/dL (14.1-18.0); Mean Corpuscular HGB Conc 32.7 g/dL (31.8-35.4); Mean Corpuscular Hemoglobin 30.1 pg (27.0-31.2); Platelet Count 210 K/mm3 (142-424); Red Blood Count 5.08 M/mm3 (4.60-6.20); Red Cell Distribution Width 16.3 % (11.5-17.5); White Blood Count 8.7 K/mm3 (4.8-10.8)
[2022-07-25 11:06] LABS: Bacteria,Urine Trace /lpf; Squamous Epithelial Cell,Urine Occasional #/hpf (0-5)
[2022-07-25 11:09] LABS: Creatinine,Urine Random 28 mg/dL (Not Estab.)
[2022-07-25 11:44] LABS: Albumin Level 4.2 g/dl (3.5-5.0); Anion Gap 9.2 mEq/L (5-15); Blood Urea Nitrogen 57 mg/dl (9-20); Calcium 8.5 mg/dl (8.4-10.2); Carbon Dioxide 25 mmol/L (22.0-30.0); Chloride 110 mmol/L (98-107); Estimated Glomerular Filt Rate 24 ml/min (>60); GFR (African American) 29 ML/MIN (>60); Glucose 111 mg/dl (74-100); Potassium 5.2 mmoL/L (3.5-5.1); Sodium 139 mmol/L (136-145)
== END ==
PROVIDERS: PCP Internal Medicine; Visit Provider Internal Medicine Nephrology
DX: N18.32 Chronic kidney disease, stage 3b (principal)
CPT/HCPCS: 36415; 80069; 81001; 82570; 84155; 85014; 85018; 85048; 85049

== ENCOUNTER → 2022-07-27 13:11 | Outpatient (POV) | payer MEDICARE, BC, SELFPAY | PROVIDERS: Visit Provider Internal Medicine Nephrology | DX: Z00.00 Encounter for general adult medical examination without abnormal findings (principal) ==

== ENCOUNTER → 2022-11-03 13:24 | Outpatient (CLI) | payer MEDICARE, BC, SELFPAY ==
[2022-11-03 15:18] LABS: Microscopic, Urine URINE MICROSCOPIC (MICROSCOPIC)
[2022-11-03 16:22] LABS: Basophils # 0.1 K/mm3 (0-0.2); Basophils % 0.8 % (0.1-2.0); Eosinophils # 0.5 K/mm3 (0.0-0.4); Eosinophils % 9.1 % (0.1-12.0); Hemoglobin 16.3 g/dL (14.1-18.0); Lymphocytes # 1.4 K/mm3 (0.7-4.5); Lymphocytes % 22.8 % (10-50); Mean Corpuscular HGB Conc 31.3 g/dL (31.8-35.4); Mean Corpuscular Hemoglobin 29.5 pg (27.0-31.2); Mean Corpuscular Volume 94.2 fl (80-94); Mean Platelet Volume 8.7 fl (7.4-10.4); Monocytes # 0.4 K/mm3 (0.1-1.0); Monocytes % 7.2 % (1.7-9.3); Neutrophils # 3.6 K/mm3 (1.8-7.8); Neutrophils % 60.1 % (37.0-80.0); Platelet Count 154 K/mm3 (142-424); Red Blood Count 5.52 M/mm3 (4.60-6.20); Red Cell Distribution Width 14.9 % (11.5-17.5)
[2022-11-03 16:34] LABS: Appearance,Urine CLEAR (Clear); Bilirubin,Urine Negative (Negative); Blood, Urine Negative (Negative); Color,Urine YELLOW (Yellow); Glucose,Urine (UA) 3+ (Negative); Ketones,Urine Negative (Negative); Leukocyte Esterase,Urine Negative (Negative); Nitrate,Urine Negative (Negative); Protein,Urine Negative (Negative); Urobilinogen,Urine 0.2 EU/dl (0.2)
[2022-11-03 16:48] LABS: Creatinine,Urine Random 82 mg/dL (Not Estab.)
[2022-11-03 16:49] LABS: Alanine Aminotransferase 41 U/L (12-78); Albumin Level 4.5 g/dl (3.5-5.0); Albumin/Globulin Ratio 1.6 (1.1-1.8); Alkaline Phosphatase 77 U/L (38-126); Aspartate Amino Transferase 37 U/L (17-59); Bilirubin,Total 0.4 mg/dl (0.2-1.3); Blood Urea Nitrogen 52 mg/dl (9-20); Calcium 8.8 mg/dl (8.4-10.2); Carbon Dioxide 28 mmol/L (22.0-30.0); Chloride 99 mmol/L (98-107); Chol/HDL Ratio 3.7 (1-3.5); Cholesterol 142 mg/dl (140-200); Estimated Glomerular Filt Rate 24 ml/min (>60); GFR (African American) 29 ML/MIN (>60); Globulin 2.9 g/dL (1.3-3.2); Glucose 128 mg/dl (74-100); HDL Cholesterol 38 mg/dl (40-60); Phosphorous 3.9 mg/dl (2.5-4.5); Sodium 144 mmol/L (136-145); Total Protein,Serum 7.4 g/dl (6.3-8.2); Triglycerides 245 mg/dl (30-150); Uric Acid 5.4 mg/dl (3.5-8.5); VLDL Cholesterol 49 mg/dL (0-40)
[2022-11-03 16:52] LABS: Albumin Level 4.5 g/dl (3.5-5.0); Anion Gap 20.7 mEq/L (5-15); Blood Urea Nitrogen 53 mg/dl (9-20); Carbon Dioxide 30 mmol/L (22.0-30.0); Chloride 99 mmol/L (98-107); Estimated Glomerular Filt Rate 24 ml/min (>60); GFR (African American) 29 ML/MIN (>60); Glucose 124 mg/dl (74-100); Potassium 5.7 mmoL/L (3.5-5.1); Sodium 144 mmol/L (136-145)
[2022-11-03 16:56] LABS: Hemoglobin A1C 8.6 % (4.0-6.0)
[2022-11-03 17:00] LABS: Direct LDL Cholesterol 67.83 mg/dL (100-129)
[2022-11-03 17:01] LABS: Squamous Epithelial Cell,Urine Occasional #/hpf (0-5)
== END ==
PROVIDERS: Internal Medicine Nephrology; PCP Internal Medicine; Visit Provider Internal Medicine
DX: E11.59 Type 2 diabetes mellitus with other circulatory complications (principal); I25.10 Atherosclerotic heart disease of native coronary artery without angina pectoris; I10 Essential (primary) hypertension; E78.5 Hyperlipidemia, unspecified; N18.4 Chronic kidney disease, stage 4 (severe); M15.0 Primary generalized (osteo)arthritis; M1A.00X0 Idiopathic chronic gout, unspecified site, without tophus (tophi); Z79.4 Long term (current) use of insulin
CPT/HCPCS: 80053; 80061; 80069; 81001; 82570; 83036; 83970; 84100; 84155; 84550; 85025

== ENCOUNTER → 2022-11-06 15:09 | Outpatient (CLI) | payer MEDICARE, BC, SELFPAY ==
[2022-11-06 16:54] LABS: Potassium 5.4 mmoL/L (3.5-5.1)
== END ==
PROVIDERS: PCP Internal Medicine; Visit Provider Internal Medicine Nephrology
DX: E87.5 Hyperkalemia (principal)
CPT/HCPCS: 36415; 84132

== ENCOUNTER → 2022-11-06 16:46 | Outpatient (POV) | payer MEDICARE, BC, SELFPAY | PROVIDERS: Visit Provider Internal Medicine Nephrology | DX: Z00.00 Encounter for general adult medical examination without abnormal findings (principal) ==

== ENCOUNTER → 2023-01-31 13:06 | Outpatient (CLI) | payer MEDICARE, BC, SELFPAY ==
[2023-01-31 13:49] LABS: Microscopic, Urine URINE MICROSCOPIC (MICROSCOPIC)
[2023-01-31 14:21] LABS: Appearance,Urine CLEAR (Clear); Bilirubin,Urine Negative (Negative); Blood, Urine Negative (Negative); Color,Urine YELLOW (Yellow); Glucose,Urine (UA) 3+ (Negative); Ketones,Urine Negative (Negative); Leukocyte Esterase,Urine Negative (Negative); Nitrate,Urine Negative (Negative); PH,Urine 5.5 (5.0-8.5); Protein,Urine Negative (Negative); Urobilinogen,Urine 0.2 EU/dl (0.2)
[2023-01-31 14:27] LABS: Albumin Level 4.1 g/dl (3.5-5.0); Blood Urea Nitrogen 75 mg/dl (9-20); Calcium 8.8 mg/dl (8.4-10.2); Carbon Dioxide 25 mmol/L (22.0-30.0); Chloride 102 mmol/L (98-107); Estimated Glomerular Filt Rate 20 ml/min (>60); GFR (African American) 24 ML/MIN (>60); Glucose 181 mg/dl (74-100); Phosphorous 4.8 mg/dl (2.5-4.5); Sodium 140 mmol/L (136-145)
[2023-01-31 14:35] LABS: Creatinine,Urine Random 103 mg/dL (Not Estab.)
[2023-01-31 14:39] LABS: Squamous Epithelial Cell,Urine Occasional #/hpf (0-5); WBC,Urine Occasional #/hpf (0-3)
[2023-01-31 16:54] LABS: Basophils % 0.6 % (0.1-2.0); Eosinophils # 0.5 K/mm3 (0.0-0.4); Eosinophils % 8.3 % (0.1-12.0); Hemoglobin 15.4 g/dL (14.1-18.0); Lymphocytes # 1.3 K/mm3 (0.7-4.5); Lymphocytes % 23.4 % (10-50); Mean Corpuscular HGB Conc 30.8 g/dL (31.8-35.4); Mean Corpuscular Hemoglobin 29.5 pg (27.0-31.2); Mean Corpuscular Volume 95.7 fl (80-94); Mean Platelet Volume 9.2 fl (7.4-10.4); Monocytes # 0.4 K/mm3 (0.1-1.0); Monocytes % 6.6 % (1.7-9.3); Neutrophils # 3.3 K/mm3 (1.8-7.8); Neutrophils % 61.1 % (37.0-80.0); Platelet Count 120 K/mm3 (142-424); Red Blood Count 5.23 M/mm3 (4.60-6.20); Red Cell Distribution Width 14.8 % (11.5-17.5); White Blood Count 5.4 K/mm3 (4.8-10.8)
== END ==
PROVIDERS: PCP Internal Medicine; Visit Provider Internal Medicine Nephrology
DX: N18.4 Chronic kidney disease, stage 4 (severe) (principal)
CPT/HCPCS: 80069; 81001; 82570; 84155; 85025

== ENCOUNTER → 2023-03-01 15:06 | Outpatient (POV) | payer MEDICARE, BC, SELFPAY | PROVIDERS: Visit Provider Internal Medicine Nephrology | DX: Z00.00 Encounter for general adult medical examination without abnormal findings (principal) ==

== ENCOUNTER → 2023-05-08 12:40 | Outpatient (CLI) | payer MEDICARE, BC, SELFPAY ==
[2023-05-08 14:00] LABS: Hemoglobin A1C 10.3 % (4.0-6.0)
[2023-05-08 14:48] LABS: Alanine Aminotransferase 67 U/L (12-78); Albumin Level 4.4 g/dl (3.5-5.0); Albumin/Globulin Ratio 1.6 (1.1-1.8); Alkaline Phosphatase 83 U/L (38-126); Anion Gap 16.5 mEq/L (5-15); Aspartate Amino Transferase 54 U/L (17-59); Bilirubin,Total 0.4 mg/dl (0.2-1.3); Calcium 8.3 mg/dl (8.4-10.2); Carbon Dioxide 24 mmol/L (22.0-30.0); Chloride 101 mmol/L (98-107); Chol/HDL Ratio 4.8 (1-3.5); Cholesterol 135 mg/dl (140-200); Estimated Glomerular Filt Rate 18 ml/min (>60); GFR (African American) 22 ML/MIN (>60); Globulin 2.8 g/dL (1.3-3.2); Glucose 242 mg/dl (74-100); HDL Cholesterol 28 mg/dl (40-60); Potassium 5.5 mmoL/L (3.5-5.1); Sodium 136 mmol/L (136-145); Total Protein,Serum 7.2 g/dl (6.3-8.2); Triglycerides 289 mg/dl (30-150); Uric Acid 5.7 mg/dl (3.5-8.5); VLDL Cholesterol 58 mg/dL (0-40)
[2023-05-08 14:58] LABS: Direct LDL Cholesterol 70.22 mg/dL (100-129)
[2023-05-08 15:03] LABS: Blood Urea Nitrogen 86 mg/dl (9-20)
[2023-05-08 15:15] LABS: Prostate Specific Ag Screen 1.2 ng/ml (0.0-4.0)
== END ==
PROVIDERS: PCP Internal Medicine; Visit Provider Internal Medicine
DX: E11.59 Type 2 diabetes mellitus with other circulatory complications (principal); Z12.5 Encounter for screening for malignant neoplasm of prostate; I10 Essential (primary) hypertension; I25.10 Atherosclerotic heart disease of native coronary artery without angina pectoris; M15.0 Primary generalized (osteo)arthritis; E78.5 Hyperlipidemia, unspecified; N19 Unspecified kidney failure; M1A.00X0 Idiopathic chronic gout, unspecified site, without tophus (tophi); Z79.4 Long term (current) use of insulin; Z79.84 Long term (current) use of oral hypoglycemic drugs
CPT/HCPCS: 80053; 80061; 83036; 84550; G0103

== ENCOUNTER 2023-10-05 13:30 | Outpatient (CLI) | payer MEDICARE, BC, SELFPAY ==
[2023-10-05 14:04] LABS: Microscopic, Urine URINE MICROSCOPIC (MICROSCOPIC)
[2023-10-05 14:25] LABS: Hematocrit 50.3 % (42.0-52.0); Hemoglobin 15.6 g/dL (14.1-18.0); Mean Corpuscular HGB Conc 31.1 g/dL (31.8-35.4); Mean Corpuscular Volume 96.7 fl (80-94); Platelet Count 126 K/mm3 (142-424); Red Blood Count 5.21 M/mm3 (4.60-6.20); Red Cell Distribution Width 15.8 % (11.5-17.5); White Blood Count 7.1 K/mm3 (4.8-10.8)
[2023-10-05 14:27] LABS: Appearance,Urine CLEAR (Clear); Bilirubin,Urine Negative (Negative); Blood, Urine Negative (Negative); Color,Urine YELLOW (Yellow); Glucose,Urine (UA) 3+ (Negative); Ketones,Urine Negative (Negative); Leukocyte Esterase,Urine Negative (Negative); Nitrate,Urine Negative (Negative); Protein,Urine Negative (Negative); Specific Gravity, Urine 1.025 (1.005-1.030); Urobilinogen,Urine 0.2 EU/dl (0.2)
[2023-10-05 14:45] LABS: Bacteria,Urine Trace /lpf; Squamous Epithelial Cell,Urine Occasional #/hpf (0-5)
[2023-10-05 15:02] LABS: Creatinine,Urine Random 165 mg/dL (Not Estab.)
[2023-10-05 15:19] LABS: Anion Gap 17.5 mEq/L (5-15); Blood Urea Nitrogen 56 mg/dl (9-20); Calcium 8.8 mg/dl (8.4-10.2); Carbon Dioxide 29 mmol/L (22.0-30.0); Chloride 102 mmol/L (98-107); Estimated Glomerular Filt Rate 22 ml/min (>60); GFR (African American) 27 ML/MIN (>60); Glucose 90 mg/dl (74-100); Phosphorous 4.1 mg/dl (2.5-4.5); Potassium 4.5 mmoL/L (3.5-5.1); Sodium 144 mmol/L (136-145)
== END 2023-10-05 23:59 | disposition home or self-care (01) ==
LOC: LAB.DROPOF 13:31
PROVIDERS: PCP Internal Medicine; Visit Provider Internal Medicine Nephrology
DX: N18.4 Chronic kidney disease, stage 4 (severe) (principal)
CPT/HCPCS: 80069; 81001; 82570; 84156; 85014; 85018; 85048; 85049

== ENCOUNTER 2023-10-08 15:33 | Outpatient (POV) | payer MEDICARE, BC, SELFPAY | END 2023-10-08 23:59 | disposition home or self-care (01) | LOC: SC 15:33 | PROVIDERS: Visit Provider Internal Medicine Nephrology | DX: Z00.00 Encounter for general adult medical examination without abnormal findings (principal) ==

== ENCOUNTER 2023-11-19 13:52 | Outpatient (CLI) | payer MEDICARE, BC, SELFPAY ==
[2023-11-19 14:33] LABS: Basophils # 0.1 K/mm3 (0-0.2); Basophils % 0.9 % (0.1-2.0); Eosinophils # 0.3 K/mm3 (0.0-0.4); Eosinophils % 4.6 % (0.1-12.0); Hematocrit 48.4 % (42.0-52.0); Hemoglobin 15.3 g/dL (14.1-18.0); Lymphocytes # 1.2 K/mm3 (0.7-4.5); Lymphocytes % 21.8 % (10-50); Mean Corpuscular HGB Conc 31.7 g/dL (31.8-35.4); Mean Corpuscular Hemoglobin 31.4 pg (27.0-31.2); Mean Platelet Volume 8.7 fl (7.4-10.4); Monocytes # 0.3 K/mm3 (0.1-1.0); Monocytes % 6.2 % (1.7-9.3); Neutrophils # 3.7 K/mm3 (1.8-7.8); Neutrophils % 66.5 % (37.0-80.0); Platelet Count 119 K/mm3 (142-424); Red Blood Count 4.89 M/mm3 (4.60-6.20); Red Cell Distribution Width 15.4 % (11.5-17.5); White Blood Count 5.5 K/mm3 (4.8-10.8)
[2023-11-19 15:18] LABS: Alanine Aminotransferase 28 U/L (12-78); Albumin/Globulin Ratio 1.5 (1.1-1.8); Alkaline Phosphatase 61 U/L (38-126); Anion Gap 17.7 mEq/L (5-15); Aspartate Amino Transferase 34 U/L (17-59); Bilirubin,Total 0.6 mg/dl (0.2-1.3); Blood Urea Nitrogen 58 mg/dl (9-20); Calcium 8.8 mg/dl (8.4-10.2); Carbon Dioxide 28 mmol/L (22.0-30.0); Chloride 100 mmol/L (98-107); Chol/HDL Ratio 4.3 (1-3.5); Cholesterol 143 mg/dl (140-200); Estimated Glomerular Filt Rate 25 ml/min (>60); GFR (African American) 30 ML/MIN (>60); Globulin 2.6 g/dL (1.3-3.2); Glucose 102 mg/dl (74-100); HDL Cholesterol 33 mg/dl (40-60); Potassium 4.7 mmoL/L (3.5-5.1); Sodium 141 mmol/L (136-145); Total Protein,Serum 6.6 g/dl (6.3-8.2); Triglycerides 215 mg/dl (30-150); Uric Acid 6.5 mg/dl (3.5-8.5); VLDL Cholesterol 43 mg/dL (0-40)
[2023-11-19 15:29] LABS: Direct LDL Cholesterol 63.74 mg/dL (100-129)
[2023-11-19 15:38] LABS: Hemoglobin A1C 9.7 % (4.0-6.0)
== END 2023-11-19 23:59 | disposition home or self-care (01) ==
LOC: LAB.DROPOF 13:53
PROVIDERS: PCP Internal Medicine; Visit Provider Internal Medicine
DX: E78.5 Hyperlipidemia, unspecified (principal); E11.59 Type 2 diabetes mellitus with other circulatory complications; M10.069 Idiopathic gout, unspecified knee; E11.22 Type 2 diabetes mellitus with diabetic chronic kidney disease; N18.4 Chronic kidney disease, stage 4 (severe); I10 Essential (primary) hypertension
CPT/HCPCS: 80053; 80061; 83036; 84550; 85025

== ENCOUNTER 2024-01-07 15:53 | Outpatient (CLI) | payer MEDICARE, BC, SELFPAY ==
[2024-01-07 13:55] LABS: Microscopic, Urine URINE MICROSCOPIC (MICROSCOPIC)
[2024-01-07 14:16] LABS: Appearance,Urine CLEAR (Clear); Bilirubin,Urine Negative (Negative); Blood, Urine Negative (Negative); Color,Urine YELLOW (Yellow); Glucose,Urine (UA) 3+ (Negative); Ketones,Urine Negative (Negative); Leukocyte Esterase,Urine Negative (Negative); Nitrate,Urine Negative (Negative); Protein,Urine Negative (Negative); Urobilinogen,Urine 0.2 EU/dl (0.2)
[2024-01-07 14:29] LABS: Creatinine,Urine Random 41 mg/dL (Not Estab.)
[2024-01-07 14:31] LABS: Basophils # 0.1 K/mm3 (0-0.2); Basophils % 0.9 % (0.1-2.0); Eosinophils # 0.3 K/mm3 (0.0-0.4); Eosinophils % 4.7 % (0.1-12.0); Hematocrit 46.2 % (42.0-52.0); Hemoglobin 16.3 g/dL (14.1-18.0); Lymphocytes # 1.3 K/mm3 (0.7-4.5); Lymphocytes % 19.5 % (10-50); Mean Corpuscular HGB Conc 35.2 g/dL (31.8-35.4); Mean Corpuscular Volume 99.3 fl (80-94); Mean Platelet Volume 8.7 fl (7.4-10.4); Monocytes # 0.4 K/mm3 (0.1-1.0); Monocytes % 6.4 % (1.7-9.3); Neutrophils # 4.6 K/mm3 (1.8-7.8); Neutrophils % 68.4 % (37.0-80.0); Platelet Count 121 K/mm3 (142-424); Red Blood Count 4.66 M/mm3 (4.60-6.20); Red Cell Distribution Width 15.5 % (11.5-17.5); White Blood Count 6.7 K/mm3 (4.8-10.8)
[2024-01-07 14:43] LABS: Blood Urea Nitrogen 65 mg/dl (9-20); Calcium 8.8 mg/dl (8.4-10.2); Carbon Dioxide 31 mmol/L (22.0-30.0); Chloride 102 mmol/L (98-107); Estimated Glomerular Filt Rate 19 ml/min (>60); GFR (African American) 23 ML/MIN (>60); Glucose 147 mg/dl (74-100); Phosphorous 4.4 mg/dl (2.5-4.5); Sodium 140 mmol/L (136-145)
[2024-01-07 15:42] LABS: Squamous Epithelial Cell,Urine Occasional #/hpf (0-5)
== END 2024-01-07 23:59 | disposition home or self-care (01) ==
LOC: LAB.DROPOF 15:53
PROVIDERS: PCP Internal Medicine; Visit Provider Internal Medicine
DX: N18.4 Chronic kidney disease, stage 4 (severe) (principal)
CPT/HCPCS: 80069; 81001; 82570; 84156; 85025

== ENCOUNTER 2024-01-11 10:42 | Outpatient (POV) | payer MEDICARE, BC, SELFPAY | END 2024-01-11 23:59 | disposition home or self-care (01) | LOC: SC 10:43 | PROVIDERS: Visit Provider Internal Medicine Nephrology | DX: Z00.00 Encounter for general adult medical examination without abnormal findings (principal) ==

== ENCOUNTER 2024-03-18 15:29 | Outpatient (CLI) | payer MEDICARE, BC, SELFPAY ==
[2024-03-18 14:03] LABS: Basophils % 0.7 % (0.1-2.0); Eosinophils # 0.3 K/mm3 (0.0-0.4); Eosinophils % 4.9 % (0.1-12.0); Hematocrit 53.8 % (42.0-52.0); Hemoglobin 17.1 g/dL (14.1-18.0); Lymphocytes # 1.3 K/mm3 (0.7-4.5); Mean Corpuscular HGB Conc 31.8 g/dL (31.8-35.4); Mean Corpuscular Hemoglobin 30.2 pg (27.0-31.2); Mean Platelet Volume 7.7 fl (7.4-10.4); Monocytes # 0.4 K/mm3 (0.1-1.0); Monocytes % 5.7 % (1.7-9.3); Neutrophils # 4.2 K/mm3 (1.8-7.8); Neutrophils % 67.7 % (37.0-80.0); Platelet Count 108 K/mm3 (142-424); Red Blood Count 5.66 M/mm3 (4.60-6.20); Red Cell Distribution Width 14.6 % (11.5-17.5); White Blood Count 6.1 K/mm3 (4.8-10.8)
[2024-03-18 14:22] LABS: Albumin Level 4.3 g/dl (3.5-5.0); Anion Gap 11.7 mEq/L (5-15); Blood Urea Nitrogen 38 mg/dl (9-20); Calcium 8.9 mg/dl (8.4-10.2); Carbon Dioxide 29 mmol/L (22.0-30.0); Chloride 105 mmol/L (98-107); Estimated Glomerular Filt Rate 32 ml/min (>60); GFR (African American) 39 ML/MIN (>60); Glucose 153 mg/dl (74-100); Phosphorous 2.8 mg/dl (2.5-4.5); Potassium 4.7 mmoL/L (3.5-5.1); Sodium 141 mmol/L (136-145)
[2024-03-18 15:52] LABS: Creatinine,Urine Random 107 mg/dL (Not Estab.)
== END 2024-03-18 23:59 | disposition home or self-care (01) ==
LOC: LAB.DROPOF 15:29
PROVIDERS: PCP Internal Medicine; Visit Provider Internal Medicine
DX: N18.4 Chronic kidney disease, stage 4 (severe) (principal); I10 Essential (primary) hypertension; E11.59 Type 2 diabetes mellitus with other circulatory complications; E11.42 Type 2 diabetes mellitus with diabetic polyneuropathy; M15.0 Primary generalized (osteo)arthritis; M10.069 Idiopathic gout, unspecified knee
CPT/HCPCS: 36415; 80069; 82570; 84156; 85025

== ENCOUNTER 2024-04-09 15:00 | Outpatient (CLI) | payer MEDICARE, BC, SELFPAY ==
[2024-04-09 15:33] LABS: Adenovirus F 40/41, stool Not Detected (NotDetected); Astrovirus Not Detected (NotDetected); Campylobacter Not Detected (NotDetected); Clostridium Difficile A/B, PCR Not Detected (NotDetected); Cryptosporidium Not Detected (NotDetected); Cyclospora Cayetanesis Not Detected (NotDetected); Entamoeba histolytica Not Detected (NotDetected); Enteroaggregative E coli Not Detected (NotDetected); Enteropathogenic E coli Not Detected (NotDetected); Enterotoxigenic E coli Not Detected (NotDetected); Giardia lamblia Not Detected (NotDetected); Norovirus Not Detected (NotDetected); Plesimonas Shigalloides, PCR Not Detected (NotDetected); Rotavirus A Not Detected (NotDetected); Salmonella, PCR Not Detected (NotDetected); Sapovirus Not Detected (NotDetected); Shiga-like toxin E coli Not Detected (NotDetected); Vibrio Cholerae Not Detected (NotDetected); Vibrio, PCR Not Detected (NotDetected); Yersinia Entercolitica, PCR Not Detected (NotDetected)
[2024-04-09 18:45] LABS: Shigella Enterovasive E coli Detected (NotDetected)
== END 2024-04-09 23:59 | disposition home or self-care (01) ==
LOC: LAB.DROPOF 04-10 13:38
PROVIDERS: PCP Internal Medicine; Visit Provider Internal Medicine
DX: A09 Infectious gastroenteritis and colitis, unspecified (principal)
CPT/HCPCS: 87205; 87506

== ENCOUNTER 2024-04-15 15:37 | Outpatient (CLI) | payer MEDICARE, BC, SELFPAY ==
[2024-04-15 15:40] LABS: Basophils # 0.1 K/mm3 (0-0.2); Basophils % 1.3 % (0.1-2.0); Eosinophils # 0.2 K/mm3 (0.0-0.4); Eosinophils % 3.8 % (0.1-12.0); Hematocrit 53.7 % (42.0-52.0); Hemoglobin 17.8 g/dL (14.1-18.0); Lymphocytes # 1.5 K/mm3 (0.7-4.5); Lymphocytes % 23.3 % (10-50); Mean Corpuscular HGB Conc 33.2 g/dL (31.8-35.4); Mean Corpuscular Hemoglobin 30.5 pg (27.0-31.2); Mean Corpuscular Volume 91.8 fl (80-94); Mean Platelet Volume 7.5 fl (7.4-10.4); Monocytes # 0.4 K/mm3 (0.1-1.0); Monocytes % 6.5 % (1.7-9.3); Neutrophils # 4.1 K/mm3 (1.8-7.8); Neutrophils % 65.1 % (37.0-80.0); Platelet Count 134 K/mm3 (142-424); Red Blood Count 5.84 M/mm3 (4.60-6.20); Red Cell Distribution Width 15.1 % (11.5-17.5); White Blood Count 6.3 K/mm3 (4.8-10.8)
[2024-04-15 15:49] LABS: Blood Urea Nitrogen 22 mg/dl (9-20); Calcium 8.6 mg/dl (8.4-10.2); Carbon Dioxide 24 mmol/L (22.0-30.0); Chloride 107 mmol/L (98-107); Estimated Glomerular Filt Rate 39 ml/min (>60); GFR (African American) 47 ML/MIN (>60); Glucose 181 mg/dl (74-100); Sodium 140 mmol/L (136-145)
== END 2024-04-15 23:59 | disposition home or self-care (01) ==
LOC: LAB.DROPOF 15:37
PROVIDERS: PCP Internal Medicine; Visit Provider Internal Medicine
DX: A09 Infectious gastroenteritis and colitis, unspecified (principal); E11.59 Type 2 diabetes mellitus with other circulatory complications; N18.4 Chronic kidney disease, stage 4 (severe); Z79.4 Long term (current) use of insulin; Z79.85 Long-term (current) use of injectable non-insulin antidiabetic drugs
CPT/HCPCS: 80048; 85025

== ENCOUNTER 2024-04-28 15:47 | Emergency (ER) | payer MEDICARE, BC, SELFPAY ==
[2024-04-28] VITALS (8 sets, daily range): BP systolic 81–119; BP diastolic 45–65; PULSE 71–78; RESP 15–20; TEMP 36.7; O2SAT 92–98; BMI 32.8
--- NOTE | 2024-04-28 15:52 | ED_ITS ---
<Statement entered by Marisa Combs DO - 04/28/24 19:53> I was consulted by the LAURA, and we discussed the complexity of the problems being addressed. I approved the treatment and management plan for this patient's care in the emergency department, thus performing a substantive portion of the medical decision making. Patient was given full sepsis bolus of IV fluids. He did not make urine in the ED. blood pressure improved after fluid resuscitation. Ultimately was transferred in stable condition. Marisa Combs DO Discharge Plan Disposition Patient Disposition: Xfer Short-Term Hosp Condition: Serious Prescriptions Prescriptions: No Action ondansetron 4 mg tablet,disintegrating 4 mg PO TIDP PRN (Reason: Nausea) Qty: 30 2RF doxazosin 2 mg tablet 2 mg PO QHS Qty: 30 furosemide 40 mg tablet 40 mg PO DAILY Qty: 30 (DME) Dexcom G6 Sensor Device See Rx Instructions .ROUTE .MEDSUPPLY Qty: 1 Rx Instructions: As directed (DME) Dexcom G6 Transmitter Device See Rx Instructions .ROUTE .MEDSUPPLY Qty: 1 Rx Instructions: As directed terbinafine HCl 1 % cream 1 applic topical BID Qty: 90 2RF ofloxacin 0.3 % drops 1 drp ophthalmic (eye) QID 7 Days Qty: 10 0RF gabapentin 100 mg capsule 100 mg PO QHS Qty: 90 1RF lisinopril 10 mg tablet See Rx Instructions .ROUTE .COMPLEX Qty: 90 1RF Dose Instruction: TAKE 1 TABLET BY MOUTH ONCE DAILY Rx Instructions: TAKE 1 TABLET BY MOUTH ONCE DAILY (DME) pen needle, diabetic [BD Ultra-Fine Sada Pen Needle] 32 gauge x 5/32 needle See Rx Instructions .ROUTE .COMPLEX Qty: 100 5RF Dose Instruction: DIRECTED FOUR TIMES DAILY Rx Instructions: DIRECTED FOUR TIMES DAILY metoprolol tartrate 50 mg tablet See Rx Instructions .ROUTE .COMPLEX Qty: 180 1RF Dose Instruction: TAKE 1 TABLET BY MOUTH TWICE DAILY Rx Instructions: TAKE 1 TABLET BY MOUTH TWICE DAILY hydroxyzine pamoate 25 mg capsule See Rx Instructions .ROUTE .COMPLEX Qty: 90 1RF Dose Instruction: TAKE 1 CAPSULE BY MOUTH AT BEDTIME FOR ITCHING, AND INSOMNIA Rx Instructions: TAKE 1 CAPSULE BY MOUTH AT BEDTIME FOR ITCHING, AND INSOMNIA escitalopram oxalate 20 mg tablet See Rx Instructions .ROUTE .COMPLEX Qty: 90 2RF Dose Instruction: TAKE 1 TABLET BY MOUTH ONCE DAILY Rx Instructions: TAKE 1 TABLET BY MOUTH ONCE DAILY pravastatin 40 mg tablet See Rx Instructions .ROUTE .COMPLEX Qty: 90 1RF Dose Instruction: TAKE 1 TABLET BY MOUTH AT BEDTIME FOR CHOLESTEROL Rx Instructions: TAKE 1 TABLET BY MOUTH AT BEDTIME FOR CHOLESTEROL allopurinol 100 mg tablet See Rx Instructions .ROUTE .COMPLEX Qty: 180 1RF Dose Instruction: TAKE 1 TABLET BY MOUTH TWICE DAILY Rx Instructions: TAKE 1 TABLET BY MOUTH TWICE DAILY dapagliflozin propanediol [Farxiga] 10 mg tablet See Rx Instructions .ROUTE .COMPLEX Qty: 90 1RF Dose Instruction: TAKE 1 TABLET BY MOUTH ONCE DAILY Rx Instructions: TAKE 1 TABLET BY MOUTH ONCE DAILY semaglutide 0.25 mg or 0.5 mg (2 mg/3 mL) pen injector 0.25 mg SQ WEEKLY Qty: 3 2RF insulin glargine [Lantus Solostar U-100 Insulin] 100 unit/mL (3 mL) insulin pen See Rx Instructions .ROUTE .COMPLEX Qty: 45 1RF Dose Instruction: INJECT 95 UNITS SUBCUTANEOUSLY AT BEDTIME Rx Instructions: INJECT 95 UNITS SUBCUTANEOUSLY AT BEDTIME cyanocobalamin (vitamin B-12) 1,000 mcg tablet See Rx Instructions .ROUTE .COMPLEX Qty: 90 1RF Dose Instruction: TAKE ONE TABLET BY MOUTH EVERY DAY Rx Instructions: TAKE ONE TABLET BY MOUTH EVERY DAY aspirin 81 MG tablet,delayed release (DR/EC) 81 mg PO DAILY fluticasone propionate 120 SPR/BOT bottle 1 spr NS DAILY Qty: 1 0RF Rx Instructions: one spray in each nostril Referrals Follow up/Referrals: Adi Pickard MD [Primary Care Provider] - See instructions Activity Restrictions/Add. Instructions Additional Instructions/Restrictions: [facility] emergency department care of Dr. Lerma Clinical Impressions Clinical Impression: Acute on chronic renal failure Stand Alone Forms Stand Alone Forms: Transfer Record - ED Instructions Patient Instructions: DI for Diarrhea and Traveler's Diarrhea -- Adult, DI for Nausea -- Adult Print Language Print Language: German Discharge ED Provider: Marisa Combs General Adult HPI <CLIFF Chacon - Last Filed: 04/28/24 19:07> General Chief complaint: Nausea/Vomiting/Diarrhea Stated complaint: sent by y-ecoli+, V/D, falls weak Time Seen by Provider: 04/28/24 15:52 History of Present Illness HPI narrative: Patient presents for evaluation of nausea vomiting and asthenia. Patient was diagnosed with Shigella toxin/ETEC approximately the middle of March. Since that time he is had continued nausea vomiting and diarrhea got progressively weak he denies chest pain fever chills hemoptysis hematochezia melena hematemesis. He does report dyspnea on exertion. After his fall he complained of pain in his neck and his head he denies specifically focal abdominal pain but states that his entire abdomen is tender. He reported so weak he had a fall yesterday and this morning when he woke up he called his PCP who sent him to the ER for evaluation. Related Data Home Medications ?Medication ?Instructions ?Recorded ?Confirmed doxazosin 2 mg tablet 2 mg PO QHS urinary retention #30 03/27/19 04/28/24 tabs furosemide 40 mg tablet 40 mg PO DAILY Fluid #30 tabs 03/27/19 04/28/24 aspirin 81 mg tablet,delayed 81 mg PO DAILY [facility] 06/01/21 04/28/24 release blood-glucose sensor (Dexcom G6 #1 ea 05/17/22 04/28/24 Sensor device) blood-glucose transmitter (Dexcom #1 ea 05/17/22 04/28/24 G6 Transmitter device) Previous Rx's ?Medication ?Instructions ?Recorded fluticasone propionate 50 1 spr intranasal DAILY #1 ea 08/04/21 mcg/actuation nasal spray,suspension gabapentin 100 mg capsule 100 mg PO QHS Pain #90 caps 12/31/23 ofloxacin 0.3 % eye drops 1 drp ophthalmic (eye) QID 7 days 01/03/24 #10 mL terbinafine HCl 1 % topical cream 1 applic topical BID #90 grams 01/03/24 lisinopril 10 mg tablet See Rx Instructions .Route 01/23/24 .COMPLEX #90 tabs pen needle, diabetic 32 gauge x #100 ea 02/15/24 (BD Ultra-Fine Sada Pen Needle) escitalopram oxalate 20 mg tablet See Rx Instructions .Route 02/21/24 .COMPLEX #90 tabs hydroxyzine pamoate 25 mg capsule See Rx Instructions .Route 02/21/24 .COMPLEX #90 caps metoprolol tartrate 50 mg tablet See Rx Instructions .Route 02/21/24 .COMPLEX #180 tabs allopurinol 100 mg tablet See Rx Instructions .Route 03/19/24 .COMPLEX #180 tabs dapagliflozin propanediol 10 mg See Rx Instructions .Route 03/19/24 tablet (Farxiga) .COMPLEX #90 tabs pravastatin 40 mg tablet See Rx Instructions .Route 03/19/24 .COMPLEX #90 tabs ondansetron 4 mg disintegrating 4 mg PO TIDP PRN Nausea #30 tabs 04/08/24 tablet semaglutide 0.25 mg or 0.5 mg (2 0.25 mg (0.368 mL) SQ WEEKLY #3 mL 04/17/24 mg/3 mL) subcutaneous pen injector cyanocobalamin (vitamin B-12) See Rx Instructions .Route 04/23/24 1,000 mcg tablet .COMPLEX #90 tabs insulin glargine 100 unit/mL (3 See Rx Instructions .Route 04/23/24 mL) subcutaneous pen (Lantus .COMPLEX #45 mL Solostar U-100 Insulin) Allergies Allergy/AdvReac Type Severity Reaction Status Date / Time No Known Allergies Allergy Verified 04/15/24 14:46 [facility] <CLIFF Chacon - Last Filed: 04/28/24 19:07> [facility] Disclaimer: The information contained in this section may have been updated after the patient was seen, as this information can be updated by other users. Medical History Edema of both lower extremities Gout Diabetes mellitus with diabetic polyneuropathy Surgical History History of total hip replacement History of neck surgery Social History Smoking Status: Never smoker second hand exposure: No alcohol intake: never current occupational status: other Travel in the last 8 weeks: None household members: none housing: house caffeine: Yes Other Medical History Have you received the Flu Vaccine for this season: No Have you received the Pneumonia Vaccine: No <CLIFF Chacon - Last Filed: 04/28/24 19:07> ROS Obtained: Yes Systems reviewed as appropriate & no additional complaints except as documented Physical Exam <CLIFF Chacon - Last Filed: 04/28/24 19:07> General General appearance: alert Respiratory Respiratory exam: Present normal lung sounds bilaterally Cardiovascular Cardiovascular exam: Present regular rate Neurological Exam Neurological exam: Present alert, oriented X3 and CN II-XII intact Medical Decision Making <CLIFF Chacon - Last Filed: 04/28/24 19:07> Medical Records Medical records reviewed: Yes I reviewed the patient's medical records. Screening: Per USPSTF and CDC recommendations, given the prevalence of disease in our region, it is our hospital?s policy to screen for HIV and viral Hepatitis for all patients aged 18 and over and those with ongoing risk factors. Jabari Inquiry Pt receiving controlled substance: No Vital Signs: 04/28/24 16:01 04/28/24 17:30 04/28/24 17:45 Temperature 98.0 F Temperature Source Oral Pulse Rate 74 71 Pulse Rate [Right Radial] 75 Respiratory Rate 18 16 16 Blood Pressure 100/57 L 81/50 L Blood Pressure [Right Arm] 89/45 L Blood Pressure Mean [Right Arm] 59 Blood Pressure Source 02 Sat by Pulse Oximetry 98 97 94 L Oxygen Delivery Method Room Air 04/28/24 18:01 04/28/24 18:15 04/28/24 18:30 Temperature Temperature Source Pulse Rate 72 74 72 Pulse Rate [Right Radial] Respiratory Rate 17 16 19 Blood Pressure 107/52 L 116/63 102/47 L Blood Pressure [Right Arm] Blood Pressure Mean [Right Arm] Blood Pressure Source 02 Sat by Pulse Oximetry 96 95 92 L Oxygen Delivery Method Room Air 04/28/24 18:37 04/28/24 18:48 Temperature 98.0 F Temperature Source Oral Pulse Rate 75 78 Pulse Rate [Right Radial] Respiratory Rate 20 15 Blood Pressure 102/47 L 119/65 Blood Pressure [Right Arm] Blood Pressure Mean [Right Arm] Blood Pressure Source Automatic Cuff 02 Sat by Pulse Oximetry 97 Oxygen Delivery Method Room Air Room Air Lab Data Lab results reviewed: Yes I reviewed the patient's lab results. Lab Results 04/28/24 16:16: WBC 8.7, RBC 5.57, Hgb 17.0, Hct 51.2, MCV 92.0, MCH 30.5, MCHC 33.1, RDW 15.2, Plt Count 146, MPV 7.8, Neut % (Auto) 79.1, Lymph % (Auto) 13.0, Sharp % (Auto) 6.0, Eos % (Auto) 1.1, Baso % (Auto) 0.8, Neut # (Auto) 6.9, Lymph # (Auto) 1.1, Sharp # (Auto) 0.5, Eos # (Auto) 0.1, Baso # (Auto) 0.1, Sodium 136, Potassium 5.2 H, Chloride 107, Carbon Dioxide 18 L, Anion Gap 16.2 H, BUN 92 H, Creatinine 4.40 H, Estimated Creat Clear 18, Estimated GFR 13 L*, Est GFR ( Amer) 16 L*, Glucose 193 H, Lactate 1.4, Calcium 8.7, Phosphorus 5.1 H, Magnesium 2.6 H, Total Bilirubin 0.9, AST 38, ALT 35, Alkaline Phosphatase 73, T roponin I 0.46 H, C-Reactive Protein 7.4 H, NT-Pro-B Natriuret Pep 995 H, Total Protein 6.9, Albumin 4.2, Globulin 2.7, Albumin/Globulin Ratio 1.6, Lipase 93, Procalcitonin 0.308, TSH 4.63, Thyroxine (T4) 5.4 L 04/28/24 16:25: VBG pH 7.25 L, VBG pCO2 42.8, VBG pO2 31.0, VBG HCO3 18.2 L, VBG Total CO2 19.5 L, VBG O2 Saturation 55.7, VBG Base Excess -9.1 L, VBG Lactic Acid 2.0 04/28/24 16:16 04/28/24 16:16 Orders (Tests/Meds): ED MEDICATIONS Discontinued Medications Generic Name Dose Route Start Last Admin Trade Name Freq PRN Reason Stop Dose Admin Lactated Ringer's 1,910 mls @ 955 mls/hr 04/28/24 16:09 04/28/24 16:27 Lactated Ringer's 1000 Ml Bag 30 ml/kg infuse over 2 hr (1910 ml) 04/28/24 18:08 955 mls/hr IV Administration .Q2H ONE Sodium Chloride 1,000 mls @ 999 mls/hr 04/28/24 17:52 04/28/24 18:55 Sod Chlor 0.9% 1000ml Bag IV 04/28/24 18:52 999 mls/hr .Q1H1M ONE Administration ORDERS Category Date Time Status CT abdomen pelvis wo con Stat Cat Scan 04/28/24 17:[address] cervical spine wo con Stat Cat Scan 04/28/24 17:[address] head/brain wo con Stat Cat Scan 04/28/24 17:00 Completed BNP [NT Pro Brain Natriuretic Pep.] Stat Lab 04/28/24 16:16 Completed CRP [C-Reactive Protein] Stat Lab 04/28/24 16:16 Completed Complete Blood Count Auto Diff Stat Lab 04/28/24 16:16 Completed Comprehensive Metabolic Panel Stat Lab 04/28/24 16:16 Completed HIV (1&2) Antibody Rapid Stat Lab 04/28/24 16:16 Received Hep C Ab with Reflex to RNA Stat Lab 04/28/24 16:16 Received Lactic Acid Stat Lab 04/28/24 16:16 Completed Lipase Stat Lab 04/28/24 16:16 Completed Magnesium Stat Lab 04/28/24 16:16 Completed Phosphorous Stat Lab 04/28/24 16:16 Completed Procalcitonin Stat Lab 04/28/24 16:16 Completed T4 (Thyroxine) Stat Lab 04/28/24 16:16 Completed TSH [Thyroid Stimulating Hormone] Stat Lab 04/28/24 16:16 Completed Trop I [Troponin I] Stat Lab 04/28/24 16:16 Completed Troponin I Q3H Lab 04/28/24 19:30 Ordered Troponin I Q3H Lab 04/28/24 22:30 Ordered UA [Urinalysis and Microscopic] Stat Lab 04/28/24 Received Blood Culture Stat Micro 04/28/24 16:23 Received VBG [Venous Blood Gas] Stat RT 04/28/24 16:25 Completed Medical Decision Narrative: In summary patient is a 78-year-old male who presents to the emergency department for evaluation of nausea vomiting diarrhea and asthenia. Patient is hypotensive on arrival with a blood pressure at the time of my exam of 77 systolic but inappropriately low heart rate of 70 breathing 18 times a minute satting at 98% on room air upon arrival, with a temperature of 98.0. Physical exam is remarkable for occiput tenderness but no midline C-spine tenderness diffuse and mild abdominal tenderness with hyperactive bowel sounds but no rebound no guarding no rigidity.. Differential diagnosis includes PEACE versus colitis versus other infectious etiology versus versus therapeutic misadventure versus intracranial hemorrhage etc. Initial workup will be conducted with hematologic labs CT scan of the head C-spine and abdomen pelvis without contrast urinalysis. Initial interventions include crystalloid bolus and Tylenol only for now. Initial workup reviewed by me shows his CBC has a normal white count normal H&H with no shift, venous blood gas shows a pH of 7.25, CMP shows a potassium of 5.2 CO2 of 18 gap of 16 BUN of 92 creatinine of 4.4 with a GFR of 13 lactate of 1.4 calcium 8.7 phosphorus of 5.1 mag of 2.6 initial troponin of 0.46 and NT proBNP of 995 TSH of 4.63. Upon repeat evaluation patient remained hypotensive after 1 L of fluid. Given this I had interactive discussion with the [facility] regarding patient management and he has been accepted for further evaluation and care <Marisa Combs, DO - Last Filed: 04/28/24 17:12> Vital Signs: 04/28/24 16:01 04/28/24 17:30 04/28/24 17:45 Temperature 98.0 F Temperature Source Oral Pulse Rate 74 71 Pulse Rate [Right Radial] 75 Respiratory Rate 18 16 16 Blood Pressure 100/57 L 81/50 L Blood Pressure [Right Arm] 89/45 L Blood Pressure Mean [Right Arm] 59 Blood Pressure Source 02 Sat by Pulse Oximetry 98 97 94 L Oxygen Delivery Method Room Air 04/28/24 18:01 04/28/24 18:15 04/28/24 18:30 Temperature Temperature Source Pulse Rate 72 74 72 Pulse Rate [Right Radial] Respiratory Rate 17 16 19 Blood Pressure 107/52 L 116/63 102/47 L Blood Pressure [Right Arm] Blood Pressure Mean [Right Arm] Blood Pressure Source 02 Sat by Pulse Oximetry 96 95 92 L Oxygen Delivery Method Room Air 04/28/24 18:37 04/28/24 18:48 Temperature 98.0 F Temperature Source Oral Pulse Rate 75 78 Pulse Rate [Right Radial] Respiratory Rate 20 15 Blood Pressure 102/47 L 119/65 Blood Pressure [Right Arm] Blood Pressure Mean [Right Arm] Blood Pressure Source Automatic Cuff 02 Sat by Pulse Oximetry 97 Oxygen Delivery Method Room Air Room Air Lab Data Lab Results 04/28/24 16:16: WBC 8.7, RBC 5.57, Hgb 17.0, Hct 51.2, MCV 92.0, MCH 30.5, MCHC 33.1, RDW 15.2, Plt Count 146, MPV 7.8, Neut % (Auto) 79.1, Lymph % (Auto) 13.0, Sharp % (Auto) 6.0, Eos % (Auto) 1.1, Baso % (Auto) 0.8, Neut # (Auto) 6.9, Lymph # (Auto) 1.1, Sharp # (Auto) 0.5, Eos # (Auto) 0.1, Baso # (Auto) 0.1, Sodium 136, Potassium 5.2 H, Chloride 107, Carbon Dioxide 18 L, Anion Gap 16.2 H, BUN 92 H, Creatinine 4.40 H, Estimated Creat Clear 18, Estimated GFR 13 L*, Est GFR ( Amer) 16 L*, Glucose 193 H, Lactate 1.4, Calcium 8.7, Phosphorus 5.1 H, Magnesium 2.6 H, Total Bilirubin 0.9, AST 38, ALT 35, Alkaline Phosphatase 73, T roponin I 0.46 H, C-Reactive Protein 7.4 H, NT-Pro-B Natriuret Pep 995 H, Total Protein 6.9, Albumin 4.2, Globulin 2.7, Albumin/Globulin Ratio 1.6, Lipase 93, Procalcitonin 0.308, TSH 4.63, Thyroxine (T4) 5.4 L 04/28/24 16:25: VBG pH 7.25 L, VBG pCO2 42.8, VBG pO2 31.0, VBG HCO3 18.2 L, VBG Total CO2 19.5 L, VBG O2 Saturation 55.7, VBG Base Excess -9.1 L, VBG Lactic Acid 2.0 Orders (Tests/Meds): ED MEDICATIONS Discontinued Medications Generic Name Dose Route Start Last Admin Trade Name Freq PRN Reason Stop Dose Admin Lactated Ringer's 1,910 mls @ 955 mls/hr 04/28/24 16:09 04/28/24 16:27 Lactated Ringer's 1000 Ml Bag 30 ml/kg infuse over 2 hr (1910 ml) 04/28/24 18:08 955 mls/hr IV Administration .Q2H ONE Sodium Chloride 1,000 mls @ 999 mls/hr 04/28/24 17:52 04/28/24 18:55 Sod Chlor 0.9% 1000ml Bag IV 04/28/24 18:52 999 mls/hr .Q1H1M ONE Administration ORDERS Category Date Time Status CT abdomen pelvis wo con Stat Cat Scan 04/28/24 17:[address] cervical spine wo con Stat Cat Scan 04/28/24 17:[address] head/brain wo con Stat Cat Scan 04/28/24 17:00 Completed BNP [NT Pro Brain Natriuretic Pep.] Stat Lab 04/28/24 16:16 Completed CRP [C-Reactive Protein] Stat Lab 04/28/24 16:16 Completed Complete Blood Count Auto Diff Stat Lab 04/28/24 16:16 Completed Comprehensive Metabolic Panel Stat Lab 04/28/24 16:16 Completed HIV (1&2) Antibody Rapid Stat Lab 04/28/24 16:16 Received Hep C Ab with Reflex to RNA Stat Lab 04/28/24 16:16 Received Lactic Acid Stat Lab 04/28/24 16:16 Completed Lipase Stat Lab 04/28/24 16:16 Completed Magnesium Stat Lab 04/28/24 16:16 Completed Phosphorous Stat Lab 04/28/24 16:16 Completed Procalcitonin Stat Lab 04/28/24 16:16 Completed T4 (Thyroxine) Stat Lab 04/28/24 16:16 Completed TSH [Thyroid Stimulating Hormone] Stat Lab 04/28/24 16:16 Completed Trop I [Troponin I] Stat Lab 04/28/24 16:16 Completed Troponin I Q3H Lab 04/28/24 19:30 Ordered Troponin I Q3H Lab 04/28/24 22:30 Ordered UA [Urinalysis and Microscopic] Stat Lab 04/28/24 Received Blood Culture Stat Micro 04/28/24 16:23 Received VBG [Venous Blood Gas] Stat RT 04/28/24 16:25 Completed ECG Data Tracing #1: I reviewed this ECG and interpreted as documented below: Normal sinus rhythm with a ventricular rate of 72 bpm. Incomplete right bundle branch block noted. Left anterior fascicular block noted. Nonspecific T wave inversions noted in leads III and aVF without acute STEMI. ECG initial impression date: 04/28/24 ECG initial impression time: 16:33 Critical Care <CLIFF Chacon - Last Filed: 04/28/24 19:07> Critical Care Time Critical Care Time: No
--- NOTE | 2024-04-28 15:58 | PC.NURSE ---
FSBS is 177 at this time.
--- NOTE | 2024-04-28 16:24 | PC.NURSE ---
RT notified of VBG order and blood in the lab
[2024-04-28] MEDS: LACTATED RINGERS 1000ML 1,910 ML 955 ML IV (16:27)
[2024-04-28 16:30] LABS: VBG Base Excess -9.1 mmol/L (-2.4-2.3); VBG HCO3 18.2 mmol/L (23-30); VBG Oxygen Saturation 55.7 % (50-70); VBG PCO2 42.8 mmol/L (35-51); VBG PH 7.25 mmol/L (7.31-7.41); VBG Total CO2 19.5 mmol/L (23-27)
--- NOTE | 2024-04-28 16:31 | ECG_ITS ---
APPROVED REPORT Exam: Resting ECG HR:72 bpm ECG Measurements Heart Rate 72 AXES NV 144 P 36 QRSd 93 QRS -55 QT 370 T -19 QTc 394 Conclusion SINUS RHYTHM PATTERN CONSISTENT WITH PULMONARY DISEASE INCOMPLETE RIGHT BUNDLE BRANCH BLOCK [90+ ms QRS DURATION, TERMINAL R IN V1/V2, 40+ ms S IN I/aVL/V4/V5/V6] LEFT ANTERIOR FASCICULAR BLOCK [QRS AXIS <= -45, QR IN I, RS IN II] INFERIOR MYOCARDIAL INFARCTION , OF INDETERMINATE AGE [40+ ms Q WAVE AND/OR ST/T ABNORMALITY IN II/aVF] ABNORMAL ECG No acute STEMI Electronically signed by : BREA SHAH, 04/28/2024 20:22:47
[2024-04-28 16:33] LABS: Basophils # 0.1 K/mm3 (0-0.2); Basophils % 0.8 % (0.1-2.0); Eosinophils # 0.1 K/mm3 (0.0-0.4); Eosinophils % 1.1 % (0.1-12.0); Hematocrit 51.2 % (42.0-52.0); Lymphocytes # 1.1 K/mm3 (0.7-4.5); Mean Corpuscular HGB Conc 33.1 g/dL (31.8-35.4); Mean Corpuscular Hemoglobin 30.5 pg (27.0-31.2); Mean Platelet Volume 7.8 fl (7.4-10.4); Monocytes # 0.5 K/mm3 (0.1-1.0); Neutrophils # 6.9 K/mm3 (1.8-7.8); Neutrophils % 79.1 % (37.0-80.0); Platelet Count 146 K/mm3 (142-424); Red Blood Count 5.57 M/mm3 (4.60-6.20); Red Cell Distribution Width 15.2 % (11.5-17.5); White Blood Count 8.7 K/mm3 (4.8-10.8)
[2024-04-28 16:43] LABS: Chloride 107 mmol/L (98-107)
[2024-04-28 16:44] LABS: Albumin Level 4.2 g/dl (3.5-5.0); Potassium 5.2 mmoL/L (3.5-5.1); Sodium 136 mmol/L (136-145)
[2024-04-28 16:47] LABS: Alanine Aminotransferase 35 U/L (12-78); Albumin/Globulin Ratio 1.6 (1.1-1.8); Alkaline Phosphatase 73 U/L (38-126); Anion Gap 16.2 mEq/L (5-15); Aspartate Amino Transferase 38 U/L (17-59); Bilirubin,Total 0.9 mg/dl (0.2-1.3); Calcium 8.7 mg/dl (8.4-10.2); Carbon Dioxide 18 mmol/L (22.0-30.0); Creatinine Clearance Estimated 18 mL/min (50-200); Estimated Glomerular Filt Rate 13 ml/min (>60); GFR (African American) 16 ML/MIN (>60); Globulin 2.7 g/dL (1.3-3.2); Glucose 193 mg/dl (74-100); Lipase 93 U/L (23-300); Magnesium 2.6 mg/dl (1.6-2.3); Total Protein,Serum 6.9 g/dl (6.3-8.2)
[2024-04-28 16:49] LABS: Blood Urea Nitrogen 92 mg/dl (9-20)
--- NOTE | 2024-04-28 16:49 | PC.NURSE ---
Timmy Robles notified of Critical BUN
[2024-04-28 16:53] LABS: C-Reactive Protein 7.4 mg/L (0-4)
[2024-04-28 16:58] LABS: Phosphorous 5.1 mg/dl (2.5-4.5)
[2024-04-28 16:59] LABS: Lactic Acid 1.4 mmol/L (0.7-2.1)
[2024-04-28 17:00] LABS: NT Pro Brain Natriuretic Pep. 995 pg/mL (0-450)
--- NOTE | 2024-04-28 17:00 | CT_ITS ---
PROCEDURE INFORMATION: Exam: CT Cervical Spine Without Contrast Exam date and time: 04/28/2024 5:16 PM Age: 78 years old Clinical indication: Injury or trauma; Additional info: Trauma, critical injury suspected TECHNIQUE: Imaging protocol: Computed tomography of the cervical spine without contrast. Radiation optimization: All CT scans at this facility use at least one of these dose optimization techniques: automated exposure control; mA and/or kV adjustment per patient size (includes targeted exams where dose is matched to clinical indication); or iterative reconstruction. COMPARISON: [facility] MR cervical spine wo con 09/05/2018 1:48 PM FINDINGS: Bones/joints: PLIF C4 through C7. Normal alignment. C2-C3: No significant disc bulge or herniation. No severe spinal canal stenosis. No significant neural foraminal narrowing. C3-C4: No significant disc bulge or herniation. No severe spinal canal stenosis. No significant neural foraminal narrowing. C4-C5: No significant disc bulge or herniation. No severe spinal canal stenosis. No significant neural foraminal narrowing. C5-C6: Severe disc space narrowing. No significant disc bulge or herniation. No severe spinal canal stenosis. No significant neural foraminal narrowing. C6-C7: Severe disc space narrowing. No significant disc bulge or herniation. No severe spinal canal stenosis. No significant neural foraminal narrowing. C7-T1: No significant disc bulge or herniation. No severe spinal canal stenosis. No significant neural foraminal narrowing. Lungs: Lung apices are normal. Soft tissues: Unremarkable. IMPRESSION: 1. PLIF C4 through C7. 2. No acute traumatic injury identified.
--- NOTE | 2024-04-28 17:00 | CT_ITS ---
PROCEDURE INFORMATION: Exam: CT Head Without Contrast Exam date and time: 04/28/2024 5:14 PM Age: 78 years old Clinical indication: Injury or trauma; Additional info: Trauma, critical injury suspected TECHNIQUE: Imaging protocol: Computed tomography of the head without contrast. Radiation optimization: All CT scans at this facility use at least one of these dose optimization techniques: automated exposure control; mA and/or kV adjustment per patient size (includes targeted exams where dose is matched to clinical indication); or iterative reconstruction. COMPARISON: CT HEAD/BRAIN WO CON 04/28/2024 5:14 PM FINDINGS: Brain: Periventricular and subcortical small vessel ischemic changes appear chronic. Mild atrophy associated. No acute hemorrhage, mass effect, midline shift, or extra-axial fluid collection. Cerebral ventricles: No ventriculomegaly. Paranasal sinuses: Visualized sinuses are unremarkable. No fluid levels. Mastoid air cells: Visualized mastoid air cells are well aerated. Bones: Unremarkable. No acute fracture. Soft tissues: Unremarkable. IMPRESSION: No acute traumatic intracranial abnormality identified.
--- NOTE | 2024-04-28 17:02 | CT_ITS ---
PROCEDURE INFORMATION: Exam: CT Abdomen And Pelvis Without Contrast Exam date and time: 04/28/2024 5:18 PM Age: 78 years old Clinical indication: Injury or trauma; Additional info: Acute renal failure TECHNIQUE: Imaging protocol: Computed tomography of the abdomen and pelvis without contrast. Radiation optimization: All CT scans at this facility use at least one of these dose optimization techniques: automated exposure control; mA and/or kV adjustment per patient size (includes targeted exams where dose is matched to clinical indication); or iterative reconstruction. COMPARISON: CR XR ACUTE ABDOMEN SERIES 08/12/2021 11:43 AM FINDINGS: Lungs: Lung bases are clear. Coronary arteries: Extensive coronary artery calcifications suggesting coronary artery disease. Liver: Normal. No mass. Gallbladder and biliary ducts: Normal. No calcified stones. No ductal dilation. Pancreas: Normal. No ductal dilation. Spleen: Normal. No splenomegaly. Adrenal glands: Normal. No mass. Kidneys and ureters: Normal. No hydronephrosis. Stomach and bowel: Multiple diverticula of the sigmoid and descending colon. Colon otherwise unremarkable with no evidence of diverticulitis. GI tract structures otherwise unremarkable with no evident wall thickening allowing for incomplete distention. Appendix: Appendix is normal. No evidence of appendicitis. Intraperitoneal space: Unremarkable. No free air. No significant fluid collection. Vasculature: Unremarkable. No abdominal aortic aneurysm. Lymph nodes: Unremarkable. No enlarged lymph nodes. Urinary bladder: Unremarkable as visualized. Reproductive: Unremarkable as visualized. Bones/joints: Unremarkable. No acute fracture. Soft tissues: Unremarkable. IMPRESSION: 1. No acute abnormalities of the abdomen and pelvis. Nonemergent findings as above. 2. Extensive coronary artery calcifications suggesting coronary artery disease.
[2024-04-28 17:05] LABS: Troponin I 0.46 ng/ml (0.00-0.034)
[2024-04-28 17:07] LABS: T4 (Thyroxine) 5.4 ug/dl (5.53-11.0)
[2024-04-28 17:20] LABS: Thyroid Stimulating Hormone 4.63 uIU/mL (0.465-4.68)
[2024-04-28 18:26] LABS: Procalcitonin 0.308 ng/mL (0.0-2.0)
[2024-04-28 18:54] LABS: Microscopic, Urine URINE MICROSCOPIC (MICROSCOPIC)
[2024-04-28] MEDS: 0.9 % SODIUM CHLORIDE 1000ML 1,000 ML 999 ML IV (18:55)
--- NOTE | 2024-04-28 18:55 | PC.NURSE ---
Called report to Kim COTTO district agent
[2024-04-28 19:08] LABS: Appearance,Urine CLEAR (Clear); Blood, Urine Negative (Negative); Color,Urine YELLOW (Yellow); Glucose,Urine (UA) 3+ (Negative); Ketones,Urine Negative (Negative); Leukocyte Esterase,Urine Negative (Negative); Nitrate,Urine Negative (Negative); PH,Urine 5.5 (5.0-8.5); Protein,Urine Negative (Negative); Specific Gravity, Urine 1.025 (1.005-1.030); Urobilinogen,Urine 0.2 EU/dl (0.2)
[2024-04-28 19:30] LABS: HIV (1&2) Antibody Rapid NONREACTIVE (NONREACTIVE)
--- NOTE | 2024-04-28 19:32 | PC.NURSE ---
P awaiting ambulance for transfer to [facility]
--- NOTE | 2024-04-28 19:58 | PC.NURSE ---
Rounded on patient, voiced no needs at this time. updated on POC.
[2024-04-28 20:09] LABS: Bilirubin,Urine 1+ (Negative)
[2024-04-28 20:10] LABS: WBC,Urine Occasional #/hpf (0-3)
[2024-04-28 20:25] LABS: Troponin I 0.34 ng/ml (0.00-0.034)
[2024-04-28] MEDS: ONDANSETRON 4MG/2ML VIAL 4 MG IV (20:37)
[2024-04-29 08:19] LABS: HCV Ab Non Reactive (Non Reactive)
== END 2024-04-28 20:39 | disposition short-term general hospital (02) ==
PROVIDERS: Emergency Provider Emergency Medicine; PCP Internal Medicine
DX: N17.9 Acute kidney failure, unspecified (principal); R53.1 Weakness; R11.2 Nausea with vomiting, unspecified; R19.7 Diarrhea, unspecified; R06.09 Other forms of dyspnea; M54.2 Cervicalgia; R51.9 Headache, unspecified; R10.9 Unspecified abdominal pain
CPT/HCPCS: 70450; 72125; 74176; 80053; 81001; 82803; 83605; 83690; 83735; 83880; 84100; 84145; 84436; 84443; 84484; 85025; 86140; 86803; 87040; 87389; 93005; 96361; 96374; 99284; J2405; J7030; J7120

== ENCOUNTER 2024-05-05 15:07 | Outpatient (CLI) | payer MEDICARE, BC, SELFPAY ==
[2024-05-05 14:56] LABS: Chloride 108 mmol/L (98-107); Potassium 4.7 mmoL/L (3.5-5.1); Sodium 144 mmol/L (136-145)
[2024-05-05 14:59] LABS: Anion Gap 15.7 mEq/L (5-15); Blood Urea Nitrogen 18 mg/dl (9-20); Calcium 8.9 mg/dl (8.4-10.2); Carbon Dioxide 25 mmol/L (22.0-30.0); Estimated Glomerular Filt Rate 39 ml/min (>60); GFR (African American) 47 ML/MIN (>60); Glucose 152 mg/dl (74-100)
== END 2024-05-05 23:59 | disposition home or self-care (01) ==
LOC: LAB.DROPOF 15:08
PROVIDERS: PCP Internal Medicine; Visit Provider Internal Medicine
DX: N17.9 Acute kidney failure, unspecified (principal); N18.9 Chronic kidney disease, unspecified; N18.4 Chronic kidney disease, stage 4 (severe)
CPT/HCPCS: 80048

== ENCOUNTER 2024-06-13 08:57 | Outpatient (CLI) | payer MEDICARE, BC, SELFPAY ==
[2024-06-13 16:37] LABS: Adenovirus F 40/41, stool Not Detected (NotDetected); Astrovirus Not Detected (NotDetected); Campylobacter Not Detected (NotDetected); Clostridium Difficile A/B, PCR Not Detected (NotDetected); Cryptosporidium Not Detected (NotDetected); Cyclospora Cayetanesis Not Detected (NotDetected); Entamoeba histolytica Not Detected (NotDetected); Enteroaggregative E coli Not Detected (NotDetected); Enteropathogenic E coli Not Detected (NotDetected); Enterotoxigenic E coli Not Detected (NotDetected); Giardia lamblia Not Detected (NotDetected); Norovirus Not Detected (NotDetected); Plesimonas Shigalloides, PCR Not Detected (NotDetected); Rotavirus A Not Detected (NotDetected); Salmonella, PCR Not Detected (NotDetected); Sapovirus Not Detected (NotDetected); Shiga-like toxin E coli Not Detected (NotDetected); Shigella Enterovasive E coli Not Detected (NotDetected); Vibrio Cholerae Not Detected (NotDetected); Vibrio, PCR Not Detected (NotDetected); Yersinia Entercolitica, PCR Not Detected (NotDetected)
== END 2024-06-13 23:59 | disposition home or self-care (01) ==
LOC: LAB.DROPOF 06-16 08:58
PROVIDERS: PCP Internal Medicine; Visit Provider Internal Medicine
DX: R19.7 Diarrhea, unspecified (principal)
CPT/HCPCS: 87506

== ENCOUNTER 2024-08-18 11:20 | Outpatient (CLI) | payer MEDICARE, BC, SELFPAY ==
[2024-08-18 18:31] LABS: Alanine Aminotransferase 30 U/L (12-78); Albumin Level 4.4 g/dl (3.5-5.0); Albumin/Globulin Ratio 1.7 (1.1-1.8); Alkaline Phosphatase 67 U/L (38-126); Anion Gap 11.4 mEq/L (5-15); Aspartate Amino Transferase 32 U/L (17-59); Bilirubin,Total 0.7 mg/dl (0.2-1.3); Blood Urea Nitrogen 31 mg/dl (9-20); Calcium 9.6 mg/dl (8.4-10.2); Carbon Dioxide 37 mmol/L (22.0-30.0); Chloride 99 mmol/L (98-107); Chol/HDL Ratio 3.4 (1-3.5); Cholesterol 131 mg/dl (140-200); Estimated Glomerular Filt Rate 42 ml/min (>60); GFR (African American) 51 ML/MIN (>60); Globulin 2.6 g/dL (1.3-3.2); Glucose 134 mg/dl (74-100); HDL Cholesterol 38 mg/dl (40-60); Potassium 5.4 mmoL/L (3.5-5.1); Sodium 142 mmol/L (136-145); Triglycerides 130 mg/dl (30-150); Uric Acid 5.4 mg/dl (3.5-8.5); VLDL Cholesterol 26 mg/dL (0-40)
[2024-08-18 18:41] LABS: Direct LDL Cholesterol 65.22 mg/dL (100-129)
[2024-08-18 18:45] LABS: Hemoglobin A1C 8.5 % (4.0-6.0)
[2024-08-18 19:01] LABS: Prostate Specific Ag Screen 1.2 ng/ml (0.0-4.0)
== END 2024-08-18 23:59 | disposition home or self-care (01) ==
LOC: LAB.DROPOF 08-19 13:17
PROVIDERS: PCP Internal Medicine; Visit Provider Internal Medicine
DX: Z12.5 Encounter for screening for malignant neoplasm of prostate (principal); M10.9 Gout, unspecified; E11.42 Type 2 diabetes mellitus with diabetic polyneuropathy; I12.9 Hypertensive chronic kidney disease with stage 1 through stage 4 chronic kidney disease, or unspecified chronic kidney disease; N18.4 Chronic kidney disease, stage 4 (severe); E78.5 Hyperlipidemia, unspecified; Z79.84 Long term (current) use of oral hypoglycemic drugs; Z79.4 Long term (current) use of insulin
CPT/HCPCS: 80053; 80061; 83036; 84550; G0103

== ENCOUNTER 2024-08-25 10:13 | Outpatient (CLI) | payer MEDICARE, BC, SELFPAY ==
[2024-08-26 09:42] LABS: Microscopic, Urine URINE MICROSCOPIC (MICROSCOPIC)
[2024-08-26 09:58] LABS: Appearance,Urine CLEAR (Clear); Bilirubin,Urine Negative (Negative); Blood, Urine Negative (Negative); Color,Urine YELLOW (Yellow); Glucose,Urine (UA) 3+ (Negative); Ketones,Urine Negative (Negative); Leukocyte Esterase,Urine Negative (Negative); Nitrate,Urine Negative (Negative); PH,Urine 6.5 (5.0-8.5); Protein,Urine 2+ (Negative); Urobilinogen,Urine 0.2 EU/dl (0.2)
[2024-08-26 10:01] LABS: Albumin Level 4.1 g/dl (3.5-5.0); Anion Gap 19.1 mEq/L (5-15); Blood Urea Nitrogen 23 mg/dl (9-20); Calcium 9.3 mg/dl (8.4-10.2); Carbon Dioxide 27 mmol/L (22.0-30.0); Chloride 100 mmol/L (98-107); Estimated Glomerular Filt Rate 42 ml/min (>60); GFR (African American) 51 ML/MIN (>60); Glucose 192 mg/dl (74-100); Phosphorous 2.8 mg/dl (2.5-4.5); Potassium 4.1 mmoL/L (3.5-5.1); Sodium 142 mmol/L (136-145)
[2024-08-26 10:11] LABS: Basophils % 0.6 % (0.1-2.0); Creatinine,Urine Random 82 mg/dL (Not Estab.); Eosinophils # 0.3 K/mm3 (0.0-0.4); Eosinophils % 4.2 % (0.1-12.0); Lymphocytes # 1.5 K/mm3 (0.7-4.5); Lymphocytes % 21.5 % (10-50); Mean Corpuscular HGB Conc 30.8 g/dL (31.8-35.4); Mean Corpuscular Hemoglobin 29.7 pg (27.0-31.2); Mean Corpuscular Volume 96.3 fl (80-94); Mean Platelet Volume 10.6 fl (7.4-10.4); Monocytes # 0.5 K/mm3 (0.1-1.0); Monocytes % 6.7 % (1.7-9.3); Neutrophils # 4.7 K/mm3 (1.8-7.8); Neutrophils % 66.7 % (37.0-80.0); Platelet Count 135 K/mm3 (142-424); Red Cell Distribution Width 14.4 % (11.5-17.5)
[2024-08-26 10:13] LABS: Intact Parathyroid Hormone 143.4 pg/mL (7.5-53.5)
[2024-08-26 10:21] LABS: Hematocrit 60.7 % (42.0-52.0)
[2024-08-26 10:22] LABS: Hemoglobin 18.7 g/dL (14.1-18.0)
[2024-08-26 10:35] LABS: Bacteria,Urine Trace /lpf
[2024-08-26 11:20] LABS: Microalbumin/Creatinine Ratio 739.5
[2024-09-02 03:36] LABS: 1,25 Dihydroxy Vitamin D 54 pg/mL (.); 1,25-Dihydroxy, Vitamin D-2 <10 pg/mL (.); 1,25-Dihydroxy, Vitamin D-3 51 pg/mL (.)
== END 2024-08-25 23:59 | disposition home or self-care (01) ==
LOC: LAB.DROPOF 08-26 10:14
PROVIDERS: PCP Internal Medicine; Visit Provider Internal Medicine
DX: E11.22 Type 2 diabetes mellitus with diabetic chronic kidney disease (principal); I12.9 Hypertensive chronic kidney disease with stage 1 through stage 4 chronic kidney disease, or unspecified chronic kidney disease; N18.4 Chronic kidney disease, stage 4 (severe); E11.59 Type 2 diabetes mellitus with other circulatory complications; E11.42 Type 2 diabetes mellitus with diabetic polyneuropathy
CPT/HCPCS: 80069; 81001; 82043; 82570; 82652; 83970; 85025

== ENCOUNTER 2024-11-19 08:26 | Outpatient (CLI) | payer MEDICARE, BC, SELFPAY ==
[2024-11-20 14:35] LABS: C difficile Toxins AB, EIA Negative (Negative)
--- OUTSIDE RECORDS SUMMARY | 2024-11-21 08:31 | XMS_ITS | Clinical Summary ---
Author Organization Healthcare Address [address] [place] [address] Care Team Providers Care Production Hardener Name Role Phone Adi Pickard MD Primary Care Provider [phone] Allergies No known active allergies Medications Aspirin Buf,CaCarb-MgCa rb-MgO, 81 MG tablet 02/13/20 17 Active escitalopram (Lexapro) 20 MG tablet TAKE 1 TABLET EVERY MORNING 04/04/20 17 Active gabapentin (Neurontin) 100 MG capsule 10/08/19 20 Active insulin aspart (NovoLOG FLEXPEN) 100 UNIT/ML injection Inject 5 units before each meal plus correction 1:50>150 as directed to MDD 75 units 06/23/19 20 Active insulin glargine (Basaglar KwikPen) 100 UNIT/ML injection INJECT 32 UNITS SUBCUTANEOUSLY ONCE DAILY 09/19/19 20 Active loratadine (Claritin) 10 MG tablet 02/13/20 17 Active metoprolol tartrate (Lopressor) 50 MG tablet TAKE 1 TABLET TWICE DAILY. 02/13/20 17 Active pravastatin (Pravachol) 40 MG tablet TAKE 1 TABLET DAILY DIRECTED. 06/23/19 20 Active allopurinol (Zyloprim) 100 MG tablet 05/06/20 21 Active Continuous Blood Gluc Sensor (Dexcom G6 Sensor) [facility] 05/27/20 21 Active Continuous Blood Gluc Transmit (Dexcom G6 transmitter) [facility] 04/26/20 21 Active Farxiga 10 MG tablet 03/27/20 22 Active colchicine 0.6 MG tablet 07/02/19 23 Active nitroglycerin (Nitrostat) 0.4 MG SL tablet 08/04/19 23 Active semaglutide (Ozempic, 0.25 or 0.5 MG/DOSE,) 2 MG/1.5ML solution pen-injector inj. pen Inject 0.1875 mL (0.25 mg) under the skin 1 (one) time per week. Active tamsulosin (Flomax) 0.4 MG 24 hr capsuleIndicati ons:BPH with lower urinary tract symptoms without urinary obstruction Take 1 capsule by mouth nightly. 90 capsule 3 08/30/19 25 Active Active Problems Problem Noted Date Diagnosed Date Dehydration 04/28/2024 Severe obesity (BMI 35.0-39.9) with comorbidity 03/28/2024 Hypertensive chronic kidney disease with stage 1 through stage 4 chronic kidney disease, or unspecified chronic kidney disease 03/28/2024 Chronic kidney disease-mineral and bone disorder (CKD-MBD) 03/28/2024 Mixed hyperlipidemia 03/28/2024 Type 2 diabetes mellitus wit h stage 3b chronic kidney disease, with long-term current use of insulin 11/14/2018 Anemia due to stage 3b chronic kidney disease Acute kidney injury superimposed on CKD 02/13/20 17 Hypertension 02/12/2017 Proteinuria 02/12/2017 Encounters Date Type Department Care Team Description 08/29/2024 1:00 PM EDT [facility] [place] [id number] [facility] [address] [place] [address] Krishna Austin MD BPH with lower urinary tract symptoms without urinary obstruction (Primary Dx); Hypervolemia associated with renal insufficiency; Mixed hyperlipidemia; Chronic kidney disease-mineral and bone disorder (CKD-MBD); Anemia due to stage 3b chronic kidney disease; Hypertensive chronic kidney disease with stage 1 through stage 4 chronic kidney disease, or unspecified chronic kidney disease; CKD stage 3b, GFR 30-44 ml/min ([facility]) 08/29/2024 Travel from Last 3 Months Family History Medical History Relation Name Comments Cardiac disorder Brother Cardiac disorder Father Hip fracture Father Hypertension Father Other cancer Mother Diabetes Other Relation Name Status Comments Brother Father Mother Other Social History Tobacco Use Types Packs/Day Years Used Date Smoking Tobacco: Never Passive Smoke Exposure: Never Smokeless Tobacco: Never Tobacco Cessation:Counseling Given: Not Answered Alcohol Use Standard Drinks/Week Comments No 0 (1 standard drink = 0.6 oz pur e alcohol) Humiliation, Afraid, Rape, and Kick questionnair e Answer Date Recorded Within the last year, have y ou been afraid of your partner or ex-partner? No 04/30/2024 Within the last year, have y ou been humiliated or emotionally abused in other ways by your partner or ex-partner? No Within the last year, have y ou been kicked, hit, slapped, or otherwise physically hurt by your partner or ex-partner? No 04/30/2024 Within the last year, have y ou been raped or forced to have any kind of sexual activity by your partner or ex-partner? No 04/30/2024 PHQ-2 Answer Date Recorded Patient Health Questionnaire-2 Score 0 10/08/2023 Hunger Vital Sign Answer Date Recorded Within the past 12 months, y ou worried that your food would run out before you got the money to buy more. Never true 04/30/20 24 Within the past 12 months, t he food you bought just didn't last and you didn't have money to get more. Never true 04/30/2024 PRAPARE - Transportation Answer Date Re corded In the past 12 months, has l ack of transportation kept you from medical appointments or from getting medications? No 08/2023 In the past 12 months, has l ack of transportation kept you from meetings, work, or from getting things needed for daily living? No 04/30/2024 Housing Stability Vital Sign Answer Romel e Recorded In the last 12 months, was t here a time when you were not able to pay the mortgage or rent on time? No 04/30/2024 Number of Times Moved in the Last Year Not on fi le 04/30/2024 At any time in the past 12 m [facility], were you homeless or living in a longterm (including now)? No 04/30/2024 Utilities Answer Date Recorded In the past 12 months has th e electric, gas, oil, or water company threatened to shut off services in your home? No 04/30/2024 Sex and Gender Information Value Date Recorded Sex Assigned at Not on file Legal Sex Male 6:03 PM EDT Gender Identity Not on file Sexual Orientation Not on file Last Filed Vital Signs Vital Sign Reading Time Taken Comments Blood Pressure 138/67 08/29/2024 12:42 PM EDT Pulse 67 08/29/2024 12:42 PM EDT Temperature 36.8 C (98.3 F) 05/01/2024 7:15 AM EST Respiratory Rate 18 08/29/2024 12:42 PM EDT Oxygen Saturation 97% 08/29/2024 12:42 PM EDT Inhaled Oxygen Concentration - - Weight 91.6 kg (202 lb) 08/29/2024 12:42 PM EDT Height 167.6 cm (5' 6 ) 08/29/2024 12:42 PM EDT Body Mass Index 32.6 08/29/2024 12:42 PM EDT Plan of Treatment Upcoming Encounters Date Type Department Care Team (Late st Contact Info) Description 04/03/2025 12:00 PM EST Office Visit [facility] [address] [place] [address] Krishna Austin MD [address] [place] [address] Health Maintenance Due Date Last Done Comments [facility]-Hepatitis C Screening 1945 [facility]-Medicare Annual Wellness (AWV) 1945 [facility]-Infant/Child/Adol SDOH Screenings 1945 Diabetes: Dental Exam 11/25/1955 [facility]-DTaP,Tdap,and Td Vaccines (1 - Tdap) 1964 [facility]-Pneumococcal Vaccine: 50+ Years (1 of 2 - PCV) 1964 [facility]-Zoster Vaccines (1 of 2) 11/25/1995 [facility]-RSV Vaccine: 60+ Years or (1 - 1-dose 75+ series) 2020 [id number] Vaccine ( - season) 2024 [facility]-Diabetes: Hemoglobin A1C 07/28/2024 04/28/2024, 06/23/2019, 11/04/2018, Additional history exists [facility]-Depression Screening 10/07/2024 10/08/2023 [facility]- SDOH Screenings 10/29/2024 [facility]-Adult SDOH Screenings 10/29/2024 04/30/2024 [facility]-Influenza Vaccine (Season Ended) 2025 [facility]-Obesity Intervention Completed 025, 04/28/2024, 03/28/2024, Additional history exists HPV Vaccines Aged Out No longer eligi ble based on patient's age to complete this topic [facility]-HIB Vaccines Aged Out No longer e ligible based on patient's age to complete this topic [facility]-Hepatitis A Vaccines Aged Out No longer eligible based on patient's age to complete this topic [facility]-IPV Vaccines Aged Out No longer e ligible based on patient's age to complete this topic [facility]-Rotavirus Vaccines Aged Out No lo nger eligible based on patient's age to complete this topic Procedures Procedure Name Priority Date/Time Associated Diagnosis Comments HEMOGLOBIN A1C Add-On 04/28/2024 9:59 PM EST from Last 3 Months or Most Recently Relevant to Health Maintenance Results * (ABNORMAL) Hemoglobin A1c (04/28/2024 9:59 PM EST) Hemoglobin A1c 7.4(H) <5.7 % 04/29/2024 3:20 AM EST [facility] Blood Venous blood specimen / Unknown Venipuncture / Unknown 04/28/2024 9:59 PM EST 04/28/2024 10:05 PM EST Narrative [facility] - 04/29/2024 3:20 AM EST HA1C Interpretive Data: Diagnosis of Diabetes: Diabetic > or = 6.5% Pre-diabetic 5.7 to 6.4% Non-diabetic < or = 5.6% Glycemic Targets for Type I and Type II Diabetics: Non- Adults <7.0% Adults <6.0% Children and Adolescents <7.5% Source: [place] [employer]. Standards of medical care in diabetes,2017. Diabetes Care.2017:40 (suppl 1):S1-S135. HbA1c assay performed by an ion-exchange chromatography method that is certified traceable to the DCCT. us [facility] BLOOD ORDERABLES Final Result [facility] [address] [place] [address] from Last 3 Months or Most Recently Relevant to Health Maintenance Additional Health Concerns Infection Onset Date Last Indicated Enteropathogenic E. coli (EPEC) 04/29/2024 04/29/2024 Insurance [facility] [place] [address] Advance Directives * Full Code (Latest Code Status on File) Date Activated Date Inactivated Comments 04/28/2024 11:56 PM 05/01/2024 5:10 PM Question Answer Comments Patient has decision-making capacity? Yes Care Teams Production Hardener Relationship Specialty Start Date End Date Adi Pickard MD [address] [facility] [address] [place] [address] PCP - General 10/08/20
== END 2024-11-19 23:59 | disposition home or self-care (01) ==
LOC: LAB.DROPOF 11-21 08:26
PROVIDERS: PCP Internal Medicine; Visit Provider Internal Medicine
DX: A04.2 Enteroinvasive Escherichia coli infection (principal)
CPT/HCPCS: 87045; 87324

== ENCOUNTER 2025-01-09 13:00 | Outpatient (CLI) | payer MEDICARE, BC, SELFPAY ==
--- OUTSIDE RECORDS SUMMARY | 2025-01-08 09:45 | XMS_ITS | Encounter Summary ---
Author Organization [facility] Address [address] [place] [address] Care Team Providers Care Tabulating Supervisor Name Role Phone Adi Pickard MD Primary Care Provider [phone] Reason for Visit * Reason Comments PARKER Coronary Artery Disease Encounter Details Date Type Department Care Team (Late st Contact Info) Description 01/08/2025 9:45 AM EDT Office Visit [facility] [address] [place] [address] Thomas Combs MD [address] [facility] [address] [place] [address] Coronary artery disease involving [place] coronary artery of [place] heart without angina pectoris (Primary Dx); Mixed hyperlipidemia; Primary hypertension; PARKER (dyspnea on exertion) Social History Tobacco Use Types Packs/Day Years Used Date Smoking Tobacco: Never Passive Smoke Exposure: Past Smokeless Tobacco: Never Alcohol Use Standard Drinks/Week Comments No 0 (1 standard drink = 0.6 oz pur e alcohol) Sex and Gender Information Value Date Recorded Sex Assigned at Not on file Legal Sex Male 11:46 AM EDT Gender Identity Not on file Sexual Orientation Not on file Occupation Industry 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 Not on file Not on file Not o n file documented as of this encounter Last Filed Vital Signs Vital Sign Reading Time Taken Comments Blood Pressure 94/60 01/08/2025 9:30 AM EDT Pulse 66 01/08/2025 9:30 AM EDT Temperature - - Respiratory Rate - - Oxygen Saturation 95% 01/08/2025 9:30 AM EDT Inhaled Oxygen Concentration - - Weight 93 kg (205 lb) 01/08/2025 9:30 AM EDT Height 167.6 cm (5' 6 ) 01/08/2025 9:30 AM EDT Body Mass Index 33.09 01/08/2025 9:30 AM EDT documented in this encounter Progress Notes * Thomas Combs MD - 01/08/2025 9:45 AM EDT [facility] Cardiology Office Progress Note Jose Alejandro Simpson [address] [place] [address] Visit Date: 01/08/25 PCP: Adi Pickard MD [address] [place] [address] IDENTIFICATION: 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 Chan. PCI - mid RCA 2.5 x 20 mm Express #2 stent. PCI - mid/distal LCX 2.5 x 24 mm Express #2 stent. Preserved systolic function LV of 57%. Essential hypertension: Normal renal arteriography, data deficit. DM- via Dexcom 03/16 A1c 7.1% HL CKD - nephrology 2.2-5.0(08/18)-1.75 Diverticulosis with remote colonoscopy and polypectomy, February 1997, repeat colonoscopy September 2001 with recurrent constipation. 2023 recurrent E. coli infectious diarrhea Remote right lower leg contusion with recreational basketball injury. X-ray and doppler ultrasound revealed liquified thrombus but no neurovascular skeletal abnormalities. 2019 [facility] w[facility] Bilat Dupuytren's BPH. 05/14 L THR - Edwar 2020 Neck surgery NOS CC: Chief Complaint Patient presents with PARKER Coronary Artery Disease Allergies No Known Allergies Current Medications Current Outpatient Medications: allopurinol (ZYLOPRIM) 100 MG tablet, Take 1 tablet by mouth Daily. (Patient taking differently: Take 1 tablet by mouth Daily. PATIENT STATED HE IS TAKING 2 A DAY), Disp: , Rfl: aspirin 81 MG EC tablet, Take 1 tablet by mouth Daily. Resume in 1 month, Disp: , Rfl: BD Pen Needle Sada U/F 32G X 4 MM misc, , Disp: , Rfl: Continuous Blood Gluc Sensor (Dexcom G6 Sensor), , Disp: , Rfl: docusate sodium 100 MG capsule, Take 100 mg by mouth 2 (Two) Times a Day., Disp: 60 each, Rfl: 0 doxazosin (CARDURA) 2 MG tablet, Take 1 tablet by mouth Every Night., Disp: , Rfl: 0 escitalopram (LEXAPRO) 20 MG tablet, TAKE 1 TABLET EVERY MORNING (Patient taking differently: 1/2 TABLET), Disp: , Rfl: 0 Farxiga 10 MG tablet, Take 10 mg by mouth Daily., Disp: , Rfl: furosemide (LASIX) 40 MG tablet, Take 1 tablet by mouth Daily., Disp: , Rfl: gabapentin (NEURONTIN) 100 MG capsule, Take 1 capsule by mouth every night at bedtime., Disp: , Rfl: HYDROcodone-acetaminophen (NORCO) 7.5-325 MG per tablet, Take 1 tablet by mouth Every 4 (Four) Hours As Needed for Moderate Pain ., Disp: 40 tablet, Rfl: 0 hydrOXYzine (ATARAX) 25 MG tablet, As Needed., Disp: , Rfl: insulin glargine (LANTUS) 100 UNIT/ML injection, Inject 20 Units under the skin into the appropriate area as directed Every Night., Disp: , Rfl: loratadine (CLARITIN) 10 MG tablet, Take 1 tablet by mouth Daily., Disp: , Rfl: metoprolol tartrate (LOPRESSOR) 50 MG tablet, take 1 tablet by mouth twice a day, Disp: , Rfl: 0 nitroglycerin (NITROSTAT) 0.4 MG SL tablet, 1 under the tongue as needed for angina, may repeat q5mins for up three doses, Disp: 100 tablet, Rfl: 11 NovoLOG FlexPen 100 UNIT/ML solution pen-injector sc pen, Inject under the skin into the appropriate area as directed 3 (Three) Times a Day., Disp: , Rfl: ondansetron ODT (ZOFRAN-ODT) 4 MG disintegrating tablet, As Needed., Disp: , Rfl: Ozempic, 0.25 or 0.5 MG/DOSE, 2 MG/3ML solution pen-injector, Inject 0.25 mg under the skin into the appropriate area as directed 1 (One) Time Per Week., Disp: , Rfl: pravastatin (PRAVACHOL) 40 MG tablet, Take 1 tablet by mouth Every Night., Disp: , Rfl: 0 tamsulosin (FLOMAX) 0.4 MG capsule 24 hr capsule, Take 1 capsule by mouth every night at bedtime., Disp: , Rfl: vitamin B-12 (CYANOCOBALAMIN) 1000 MCG tablet, Take 1 tablet by mouth Daily., Disp: , Rfl: History of Present Illness Jose Alejandro Simpson is a 79 y.o. year old male here for follow up. Patient notes dizzy spells this summer. He has had no recent blood work that he can state. He states he is weakened. He notes no overt cardiac symptoms OBJECTIVE: Vitals: 01/08/25 0930 BP: 94/60 BP Location: Right arm Patient Position: Sitting Cuff Size: Adult Pulse: 66 SpO2: 95% Weight: 93 kg (205 lb) Height: 167.6 cm (66 ) Body mass index is 33.09 kg/m??. Constitutional: Appearance: Not in distress. Chronically ill-appearing. Neck: Vascular: No JVR. JVD normal. Pulmonary: Effort: Pulmonary effort is normal. Breath sounds: Normal breath sounds. No wheezing. No rhonchi. No rales. Chest: Chest wall: Not tender to palpatation. Cardiovascular: PMI at left midclavicular line. Normal rate. Regular rhythm. Normal S1. Normal S2. Murmurs: There is a systolic murmur. No gallop. No click. No rub. Pulses: Intact distal pulses. Edema: Peripheral edema absent. Abdominal: General: Bowel sounds are normal. Palpations: Abdomen is soft. Tenderness: There is no abdominal tenderness. Musculoskeletal: Normal range of motion. General: No tenderness. Comments: Bilateral Dupuytren's contracture of small finger Skin: General: Skin is warm and dry. Comments: Diffuse dermatoses over his face and arms Neurological: General: No focal deficit present. Mental Status: Alert and oriented to person, place and time. Diagnostic Data: Procedures ASSESSMENT: Diagnosis Plan 1. Coronary artery disease involving [place] coronary artery of [place] heart without angina pectoris 2. Mixed hyperlipidemia 3. Primary hypertension 4. PARKER (dyspnea on exertion) PLAN: CAD post remote cath-based intervention no anginal equivalent continue risk factor modification medical management as he is asymptomatic. Risk for NOLAN with any contrasted study Hypertension controlled metoprolol Cardura. Mixed dyslipidemia on statin therapy obtain most recent lipid profile from PCP Diabetes on sliding scale insulin with A1c recently 9.8 CKD stage III creatinine baseline 1.8-2.2 Presyncope with concomitant Farxiga tamsulosin doxazosin. His prior serologies are concerning for potential hepatic dysfunction with hypoalbuminemia and low platelets. I will have every documented CMP CBC. Recommended to see Dr. Pickard in regards to potential hepatic evaluation Thomas Combs MD, FACC documented in this encounter Plan of Treatment Upcoming Encounters Date Type Department Care Team (Late st Contact Info) Description 05/06/2026 10:30 AM EST Office Visit [facility] C[facility] [address] [place] [address] [place] [address] Thomas Combs MD [facility] [place] [address] documented as of this encounter Visit Diagnoses Diagnosis Coronary artery disease involving [place] coronary artery of [place] heart without angina pectoris- Primary Mixed hyperlipidemia Primary hypertension Unspecified essential hypertension PARKER (dyspnea on exertion) Other dyspnea and respiratory abnormality documented in this encounter Care Teams Tabulating Supervisor Relationship Specialty Start Date End Date Adi Pickard MD [address] [facility] [address] [place] [address] PCP - General 04/02/15 documented as of this encounter
[2025-01-09 16:44] LABS: Hematocrit 54.1 % (42.0-52.0); Hemoglobin 17.2 g/dL (14.1-18.0); Immature Granulocytes % 0.6 %; Mean Corpuscular HGB Conc 31.8 g/dL (31.8-35.4); Mean Corpuscular Hemoglobin 28.6 pg (27.0-31.2); Mean Corpuscular Volume 89.9 fl (80-94); Nucleated Red Blood Cells % 0 %; Platelet Count 117 K/mm3 (142-424); Red Blood Count 6.02 M/mm3 (4.60-6.20); Red Cell Distribution Width-SD 45.9 fL; White Blood Count 7.2 K/mm3 (4.8-10.8)
[2025-01-09 17:24] LABS: Albumin Level 4.1 g/dl (3.5-5.0); Chloride 101 mmol/L (98-107)
[2025-01-09 17:25] LABS: Potassium 4.7 mmoL/L (3.5-5.1); Sodium 140 mmol/L (136-145)
[2025-01-09 17:27] LABS: Alanine Aminotransferase 25 U/L (12-78); Alkaline Phosphatase 86 U/L (38-126); Anion Gap 14.7 mEq/L (5-15); Aspartate Amino Transferase 30 U/L (17-59); Bilirubin,Total 0.6 mg/dl (0.2-1.3); Blood Urea Nitrogen 26 mg/dl (9-20); Carbon Dioxide 29 mmol/L (22.0-30.0); Creatinine,Serum 1.60 mg/dl (0.66-1.25); Estimated Glomerular Filt Rate 42 ml/min (>60); GFR (African American) 51 ML/MIN (>60)
[2025-01-09 17:28] LABS: Albumin/Globulin Ratio 1.4 (1.1-1.8); Calcium 8.9 mg/dl (8.4-10.2); Cholesterol 151 mg/dl (140-200); Globulin 3.0 g/dL (1.3-3.2); Glucose 97 mg/dl (74-100); Total Protein,Serum 7.1 g/dl (6.3-8.2); Triglycerides 225 mg/dl (30-150)
[2025-01-09 20:28] LABS: HDL Cholesterol 43 mg/dl (40-60)
--- OUTSIDE RECORDS SUMMARY | 2025-01-12 13:11 | XMS_ITS | Encounter Summary ---
Author Organization [facility] Address [address] [place] [address] Care Team Providers Care Shipping Receiving Manager Name Role Phone Adi Pickard MD Primary Care Provider [phone] Encounter Details Date Type Department Care Team (Late st Contact Info) Description 06/11/2017 External CPT II [facility] [facility] [employer] Social History Tobacco Use Types Packs/Day Years Used Date Smoking Tobacco: Never Smokeless Tobacco: Never Alcohol Use Standard Drinks/Week Comments No 0 (1 standard drink = 0.6 oz pur e alcohol) Sex and Gender Information Value Date Recorded Sex Assigned at Not on file Legal Sex Male 11:46 AM EDT Gender Identity Not on file Sexual Orientation Not on file documented as of this encounter Plan of Treatment Upcoming Encounters Date Type Department Care Team (Late st Contact Info) Description 05/06/2026 10:30 AM EST Office Visit [facility] C[facility] [address] [place] [address] Thomas Combs MD [address] [facility] [address] [place] [address] documented as of this encounter Visit Diagnoses Not on filedocumented in this encounter Care Teams Shipping Receiving Manager Relationship Specialty Start Date End Date Adi Pickard MD [address] [place] [address] PCP - General 04/02/15 documented as of this encounter
--- OUTSIDE RECORDS SUMMARY | 2025-01-12 13:12 | XMS_ITS | Encounter Summary ---
Author Organization 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 Not on file Not o n file documented as of this encounter Plan of Treatment Upcoming Encounters Date Type Department Care Team (Late st Contact Info) Description 05/06/2026 10:30 AM EST Office Visit [facility] C[facility] [address] [place] [address] Thomas Combs MD [address] [facility] [address] [place] [address] documented as of this encounter Visit Diagnoses Not on filedocumented in this encounter Care Teams Ultrasound Spec Relationship Specialty Start Date End Date Adi Pickard MD [address] [facility] [address] [facility] [address] PCP - General 04/02/15 documented as of this encounter
--- OUTSIDE RECORDS SUMMARY | 2025-01-12 13:12 | XMS_ITS | Clinical Summary ---
Author Organization Healthcare Address [address] [place] [address] Care Team Providers Care English Tutor Name Role Phone Adi Pickard MD Primary Care Provider [phone] Allergies No known active allergies Medications Aspirin [...] Continuous Blood Gluc Sensor (Dexcom G6 Sensor) [facility] 05/27/20 21 Active Continuous Blood Gluc Transmit (Dexcom G6 transmitter) [facility] 04/26/20 21 Active Farxiga 10 MG tablet [...] CKD 02/13/20 17 Hypertension 02/12/2017 Proteinuria 02/12/2017 Family History Medical History Relation Name Comments [...] any time in the past 12 m [facility], were you homeless or living in a half-way (including now)? No 04/30/2024 Utilities Answer Date [...] Description 04/03/2025 12:00 PM EST Office Visit [facility] [address] [place] [address] Krishna Austin MD [address] [place] [address] Health Maintenance Due Date Last Done Comments [facility]-Hepatitis C Screening 1945 [facility]-Medicare Annual Wellness (AWV) 1945 [facility]-Infant/Child/Adol SDOH Screenings 1945 Diabetes: Dental Exam 11/25/1955 [facility]-DTaP,Tdap,and Td Vaccines (1 - Tdap) 1964 [facility]-Pneumococcal Vaccine: 50+ Years (1 of 2 - PCV) 1964 [facility]-Zoster Vaccines (1 of 2) 11/25/1995 [facility]-RSV Vaccine: 60+ Years or (1 - 1-dose 75+ series) 2020 [id number] Vaccine ( - 2023- season) 2024 [facility]-Diabetes: Hemoglobin A1C 07/28/2024 04/28/2024, 06/23/2019, 11/04/2018, Additional history exists [facility]-Depression Screening 10/07/2024 10/08/2023 [facility]- SDOH Screenings 10/29/2024 [facility]-Adult SDOH Screenings 10/29/2024 04/30/2024 [facility]-Influenza Vaccine (#1) 2025 [facility]-Obesity Intervention Completed 025, 04/28/2024, 03/28/2024, [...] 7.4(H) <5.7 % 04/29/2024 3:20 AM EST [facility] Blood Venous blood specimen / Unknown Venipuncture / Unknown 04/28/2024 9:59 PM EST 04/28/2024 10:05 PM EST Narrative [facility] - 04/29/2024 3:20 AM EST HA1C Interpretive Data: Diagnosis of Diabetes: Diabetic > or = 6.5% Pre-diabetic 5.7 to 6.4% Non-diabetic < or = 5.6% Glycemic Targets for Type I and Type II Diabetics: Non- Adults <7.0% Adults <6.0% Children and Adolescents <7.5% Source: [place] [employer]. Standards of medical care in diabetes,2017. Diabetes Care.2017:40 (suppl 1):S1-S135. HbA1c assay performed by an ion-exchange chromatography method that is certified traceable to the DCCT. [facility] BLOOD ORDERABLES Final Result [facility] [address] [place] [address] from Last 3 Months or Most Recently Relevant to Health Maintenance Additional Health Concerns Infection Onset Date Last Indicated Enteropathogenic E. coli (EPEC) 04/29/2024 04/29/2024 Insurance [facility] [address] Advance Directives * Full Code (Latest Code Status on File) Date Activated Date Inactivated Comments 04/28/2024 11:56 PM 05/01/2024 5:10 PM Question Answer Comments Patient has decision-making capacity? Yes Care Teams English Tutor Relationship Specialty Start Date End Date Adi Pickard MD [address] [place] [address] [address] [place] [address] PCP - General 10/08/20
--- OUTSIDE RECORDS SUMMARY | 2025-01-12 13:12 | XMS_ITS | Encounter Summary ---
Author Organization [facility] Address [address] [place] [address] Care Team Providers Care Logger All Round Name Role Phone Adi Pickard MD Primary Care Provider [phone] Encounter Details Date Type Department Care Team (Late st Contact Info) Description 12/10/2017 External CPT II WEB PUBLISHER - [facility] Social History Tobacco Use [...] Description 05/06/2026 10:30 AM EST Office Visit [facility] [address] [facility] [place] [address] Thomas Combs MD [address] [facility] [address] [place] [address] documented as of this encounter Visit Diagnoses Not on filedocumented in this encounter Care Teams Logger All Round Relationship Specialty Start Date End Date Adi Pickard MD [address] [place] [address] PCP - General 04/02/15 documented as of this encounter
--- OUTSIDE RECORDS SUMMARY | 2025-01-12 13:12 | XMS_ITS | Encounter Summary ---
Author Organization [facility] Address [address] [place] [address] Care Team Providers Care Wire Drawing Setter Name Role Phone Adi Pickard MD Primary Care Provider [phone] Encounter Details Date Type Department Care Team (Late st Contact Info) Description 06/12/2018 External CPT II BOARD HANDLER - [facility] Social History Tobacco Use [...] Description 05/06/2026 10:30 AM EST Office Visit [facility] [address] [facility] [place] [address] Thomas Combs MD [address] [facility] [address] [place] [address] documented as of this encounter Visit Diagnoses Not on filedocumented in this encounter Care Teams Wire Drawing Setter Relationship Specialty Start Date End Date Adi Pickard MD [address] [place] [address] PCP - General 04/02/15 documented as of this encounter
--- OUTSIDE RECORDS SUMMARY | 2025-01-12 13:12 | XMS_ITS | Clinical Summary ---
Author Organization [facility] Address [address] [place] [address] Care Team Providers Care Electrical Checkout Mechanic Name Role Phone Adi Pickard MD Primary Care Provider [phone] Allergies No known active allergies Medications metoprolol tartrate (LOPRESSOR) 50 MG tablet take 1 tablet by mouth twice a day 0 04/04/20 16 Active doxazosin (CARDURA) 2 MG tablet Take 1 tablet by mouth Every Night. 0 04/04/20 16 Active pravastatin (PRAVACHOL) 40 MG tablet Take 1 tablet by mouth Every Night. 0 04/04/20 16 Active escitalopram (LEXAPRO) 20 MG tablet TAKE 1 TABLET EVERY MORNING 0 04/04/20 17 Active insulin glargine (LANTUS) 100 UNIT/ML injection Inject 20 Units under the skin into the appropriate area as directed Every Night. Active loratadine (CLARITIN) 10 MG tablet Take 1 tablet by mouth Daily. Active aspirin 81 MG EC tablet Take 1 tablet by mouth Daily. Resume in 1 month 05/09/20 18 Active docusate sodium 100 MG capsule Take 100 mg by mouth 2 (Two) Times a Day. 60 each 8 1:18 PM EST 05/09/20 18 Active HYDROcodone-acetam inophen (NORCO) 7.5-325 MG per tablet Take 1 tablet by mouth Every 4 (Four) Hours As Needed for Moderate Pain . 40 tablet 8 1:18 PM EST 05/09/20 18 Active NovoLOG FlexPen 100 UNIT/ML solution pen-injector sc pen Inject under the skin into the appropriate area as directed 3 (Three) Times a Day. 07/12/19 22 Active allopurinol (ZYLOPRIM) 100 MG tablet Take 1 tablet by mouth Daily. 07/03/19 22 Active Continuous Blood Gluc Sensor (Dexcom G6 Sensor) 06/27/19 22 Active furosemide (LASIX) 40 MG tablet Take 1 tablet by mouth Daily. 07/03/19 22 Active gabapentin (NEURONTIN) 100 MG capsule Take 1 capsule by mouth every night at bedtime. 06/27/19 22 Active Farxiga 10 MG tablet Take 10 mg by mouth Daily. 08/02/19 23 Active BD Pen Needle Sada U/F 32G X 4 MM misc 07/03/19 23 Active nitroglycerin (NITROSTAT) 0.4 MG SL tablet 1 under the tongue as needed for angina, may repeat q5mins for up three doses 100 tablet 11 08/04/19 23 Active vitamin B-12 (CYANOCOBALAMIN) 1000 MCG tablet Take 1 tablet by mouth Daily. 12/25/19 25 Active tamsulosin (FLOMAX) 0.4 MG capsule 24 hr capsule Take 1 capsule by mouth every night at bedtime. Active Ozempic, 0.25 or 0.5 MG/DOSE, 2 MG/3ML solution pen-injector Inject 0.25 mg under the skin into the appropriate area as directed 1 (One) Time Per Week. 01/06/20 25 Active ondansetron ODT (ZOFRAN-ODT) 4 MG disintegrating tablet As Needed. 12/25/19 25 Active hydrOXYzine (ATARAX) 25 MG tablet As Needed. 12/25/19 25 Active lisinopril (PRINIVIL,ZESTRIL) 10 MG tablet Take 1 tablet by mouth Daily. 0 04/04/20 16 025 Discontinu ed(Discont inued by another clinician) colchicine 0.6 MG tablet Take by mouth Daily. 07/08/19 22 025 Discontinu ed(Discont inued by another clinician) Active Problems Problem Noted Date Diagnosed Date Peripheral arterial disease 05/05/2019 Osteoarthritis of multiple joints 05/05/2019 Status post total replacement of left hip 2017 Leukocytosis, mild, likely reactive 05/09/2018 Acute blood loss anemia, mild, asymptomatic 04/27 Acute postoperative pain 05/09/2018 Arthritis of left hip 05/08/2018 HLD (hyperlipidemia) 05/08/2018 DM (diabetes mellitus) 05/08/2018 CAD (coronary artery disease) Overview (04/05/2016): i. PCI - mid RCA 2.5 x 20 mm Express #2 stent. ii. PCI - mid/distal LCX 2.5 x 24 mm Express #2 stent. iii. Preserved systolic function LV of 57%. Essential hypertension Overview (04/05/2016): Normal renal arteriography, data deficit. Moderate obesity Overview (04/05/2016): BMI 33.6. BPH (benign prostatic hyperplasia) Encounters Date Type Department Care Team Description 01/08/2025 9:45 AM EDT Office Visit [facility] [address] [facility] [place] [address] Thomas Combs MD Coronary artery disease involving ramona coronary artery of ramona heart without angina pectoris (Primary Dx); Mixed hyperlipidemia; Primary hypertension; PARKER (dyspnea on exertion) 01/08/2025 Travel from Last 3 Months Family History Medical History Relation Name Comments Heart attack Father Cancer Mother Relation Name Status Comments Father Mother Social History Tobacco Use Types Packs/Day Years Used Date Smoking Tobacco: Never Passive Smoke Exposure: Past Smokeless Tobacco: Never Tobacco Cessation:Counseling Given: Not Answered Alcohol Use Standard Drinks/Week Comments No 0 (1 standard drink = 0.6 oz pur e alcohol) Sex and Gender Information Value Date Recorded Sex Assigned at Not on file Legal Sex Male 11:46 AM EDT Gender Identity Not on file Sexual Orientation Not on file 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 Not on file Not o n file Last Filed Vital Signs Vital Sign Reading Time Taken Comments Blood Pressure 94/60 01/08/2025 9:30 AM EDT Pulse 66 01/08/2025 9:30 AM EDT Temperature 36.6 C (97.9 F) 05/05/2019 8:42 AM EST Respiratory Rate 18 05/09/2018 7:52 AM EST Oxygen Saturation 95% 01/08/2025 9:30 AM EDT Inhaled Oxygen Concentration - - Weight 93 kg (205 lb) 01/08/2025 9:30 AM EDT Height 167.6 cm (5' 6 ) 01/08/2025 9:30 AM EDT Body Mass Index 33.09 01/08/2025 9:30 AM EDT Plan of Treatment Upcoming Encounters Date Type Department Care Team (Late st Contact Info) Description 05/06/2026 10:30 AM EST Office Visit [facility] [address] [place] [address] [place] [address] Thomas Combs MD [address] [place] [address] Health Maintenance Due Date Last Done Comments DIABETIC FOOT EXAM 11/25/1955 URINE MICROALBUMIN-CREATININ E RATIO (uACR) 11/25/1955 Pneumococcal Vaccine 50+ (1 of 2 - PCV) 1964 TDAP/TD VACCINES (1 - Tdap) 1964 COLOGUARD 1990 COLON CANCER SCREENING 5 YEA R SIGMOIDOSCOPY 1990 CT COLONOGRAPHY 1990 FECAL OCCULT BLOOD TEST 1990 FIT Testing (1 year) 1990 ZOSTER VACCINE (1 of 2) 11/25/1995 COLONOSCOPY 09/26/2011 09/25/2001 COLORECTAL CANCER SCREENING 09/26/2011 ANNUAL WELLNESS VISIT 04/24/2017 HEPATITIS C SCREENING 04/24/2017 RSV Vaccine - Adults (1 - 1- dose 75+ series) 2020 DIABETIC EYE EXAM 05/03/2022 05/03/2021 COVID-19 Vaccine (1 - 2023-2 5 season) 2024 LIPID PANEL 05/08/2024 05/08/2023, 01/2023, 02/03/2022, Additional history exists HEMOGLOBIN A1C 10/27/2024 04/28/2024, 06/2023, 05/08/2023, Additional history exists INFLUENZA VACCINE 02/25/2025 Medical Devices Implanted Type Area Manager Maintenance Device Identifier Shelf Expiration Date Model / Serial / Lot Shll Acet R3 3h Std 56mm - [id number] Implanted:Qty: 1 on 05/08/2018 by Roque Vann MD at [facility] Implant Left: Hip [employer]ORE [employer] NEPHEW 03/16/2028 [id number] / / [id number] Scrw Sph Hd Reflection 6.5x20mm - [id number] Implanted:Qty: 1 on 05/08/2018 by Roque Vann MD at [facility] Implant Left: Hip [employer]ORE [employer] NEPHEW 09/03/2027 [id number] / / [id number] Liner Acet R3 Xlpe 0d 52c57br - [id number] Implanted:Qty: 1 on 05/08/2018 by Roque Vann MD at [facility] Implant Left: Hip [employer]ORE [employer] NEPHEW 10/29/2027 [id number] / / [id number] Scrw Sph Hd Reflection 6.5x25mm - [id number] Implanted:Qty: 1 on 05/08/2018 by Roque Vann MD at [facility] Implant Left: Hip MOORE AND NEPHEW 02/01/2028 [id number] / / [id number] Stem Polarstem W/Colr Std Sz3 - [id number] Implanted:Qty: 1 on 05/08/2018 by Roque Vann MD at [facility] Implant Left: Hip MOORE AND NEPHEW 06/25/2024 [id number] / / [id number] Hd Fem Tandem 05/10 Tpr Cocr 36mm Pls4 - [id number] Implanted:Qty: 1 on 05/08/2018 by Rqoue Vann MD at [facility] Implant Left: Hip MOORE AND NEPHEW 03/23/2028 [id number] / / [id number] Totl Hip Std Moore Nephew - [id number] Implanted:Qty: 1 on 05/08/2018 by Roque Vann MD at [facility] Implant Left: Hip MOORE AND NEPHEW CAPHIPTOTAL SN1 / / Heart Stents Procedures Procedure Name Priority Date/Time Associated Diagnosis Comments HEMOGLOBIN A1C Routine 04/25/2018 3:27 PM EST HM COLONOSCOPY Routine 09/25/2001 from Last 3 Months or Most Recently Relevant to Health Maintenance Results * (ABNORMAL) Hemoglobin A1c (04/25/2018 3:27 PM EST) Hemoglobin A1C 9.00(H) 4.80 - 5.60 % 04/25/2018 4:00 PM EST [facility] Blood Venipuncture / Unknown 04/25/2018 3:27 PM EST 04/25/2018 3:40 PM EST Narrative [facility] - 04/25/2018 4:00 PM EST The [place] Diabetes Association recommends maintenance of Hemoglobin A1C at 7.0% or lower. Goals for Hemoglobin A1C reduction may need to be modified if hypoglycemia is a problem. Roque Vann MD LAB BLOOD ORDERABLES Final Resu lt [facility]
[address] [place] [address], * HM COLONOSCOPY (09/25/2001) Colonoscopy colonoscopy Kaylynn Weaver MD HEALTH MAINTENANCE Final Result from Last 3 Months or Most Recently Relevant to Health Maintenance Insurance MEDICARE A & B Member Subscriber Plan / Payer (Ef fective 2010-Present) Name:Jose Alejandro Simpson Member ID:[id number] Relation to Subscriber:Self Name:Jose Alejandro Simpson Subscriber ID:[id number] Payer ID:[id number] Group ID:Not on file Type:Not on file Address: [facility] [id number] Member Subscriber Plan / Payer (Ef fective 2018-Present) Name:Jose Alejandro Simpson Relation to Subscriber:Self Name:Jose Alejandro Simpson Payer ID:[id number] (LINDA) Type:Not on file Address: [facility] [id number] [place] [id number] Advance Directives Documents on File Type Date Recorded Patient Sped Teacher Expl anation POWER OF SCALPING MACHINE OPERATOR - SCAN 05/10/2018 6:47 AM DURABLE POWER OF SCALPING MACHINE OPERATOR 08/16/2016 LIVING WILL - SCAN 05/10/2018 6:47 AM ADELAIDE ING WILL 08/16/2016 * CPR (Attempt to Resuscitate) (Latest Code Status on File) Date Activated Date Inactivated Comments 05/08/2018 4:59 PM 05/09/2018 4:07 PM Question Answer Comments Code Status (Patient has no pulse and is not breathing): CPR (Attempt to Resuscitate) Medical Interventions (Patie nt has pulse or is breathing): Full Care Teams Electrical Checkout Mechanic Relationship Specialty Start Date End Date Adi Pickard MD [address] [facility] [address] [place] [address] PCP - General 04/02/15
--- OUTSIDE RECORDS SUMMARY | 2025-01-12 13:12 | XMS_ITS | Encounter Summary ---
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 Not on file Not o n file documented as of this encounter Plan of Treatment Upcoming Encounters Date Type Department Care Team (Late st Contact Info) Description 05/06/2026 10:30 AM EST Office Visit [facility] C[facility]IOLOG[facility] [address] [place] [address] [place] [address] Thomas Combs MD [address] [facility] [address] [place] [address] documented as of this encounter Visit Diagnoses Not on filedocumented in this encounter Care Teams Router Operator Radial Relationship Specialty Start Date End Date Adi Pickard MD [address] [facility] [address] [place] [address] PCP - General 04/02/15 documented as of this encounter
== END 2025-01-09 23:59 ==
LOC: LAB.DROPOF 01-12 13:07
PROVIDERS: PCP Internal Medicine; Visit Provider Internal Medicine
DX: E11.42 Type 2 diabetes mellitus with diabetic polyneuropathy (principal); I10 Essential (primary) hypertension; I25.10 Atherosclerotic heart disease of native coronary artery without angina pectoris; E78.5 Hyperlipidemia, unspecified; Z79.4 Long term (current) use of insulin
CPT/HCPCS: 80053; 80061; 85025

== ENCOUNTER 2025-03-23 14:35 | Outpatient (CLI) | payer MEDICARE, BC, SELFPAY ==
[2025-03-23 17:31] LABS: Hematocrit 59.2 % (42.0-52.0); Immature Granulocytes % 0.7 %; Mean Corpuscular HGB Conc 30.9 g/dL (31.8-35.4); Mean Corpuscular Hemoglobin 28.6 pg (27.0-31.2); Mean Corpuscular Volume 92.5 fl (80-94); Nucleated Red Blood Cells % 0 %; Platelet Count 152 K/mm3 (142-424); Red Blood Count 6.40 M/mm3 (4.60-6.20); Red Cell Distribution Width-SD 48.1 fL; White Blood Count 9.0 K/mm3 (4.8-10.8)
[2025-03-23 18:38] LABS: Hemoglobin 18.3 g/dL (14.1-18.0)
[2025-03-23 19:13] LABS: Alanine Aminotransferase 37 U/L (12-78); Albumin Level 3.6 g/dl (3.5-5.0); Albumin/Globulin Ratio 1.0 (1.1-1.8); Alkaline Phosphatase 99 U/L (38-126); Anion Gap 14.5 mEq/L (5-15); Aspartate Amino Transferase 35 U/L (17-59); Bilirubin,Total 0.8 mg/dl (0.2-1.3); Blood Urea Nitrogen 29 mg/dl (9-20); Calcium 9.0 mg/dl (8.4-10.2); Carbon Dioxide 29 mmol/L (22.0-30.0); Chloride 103 mmol/L (98-107); Cholesterol 137 mg/dl (140-200); Creatinine,Serum 1.60 mg/dl (0.66-1.25); Estimated Glomerular Filt Rate 42 ml/min (>60); GFR (African American) 51 ML/MIN (>60); Globulin 3.5 g/dL (1.3-3.2); Glucose 64 mg/dl (74-100); HDL Cholesterol 42 mg/dl (40-60); Potassium 4.5 mmoL/L (3.5-5.1); Sodium 142 mmol/L (136-145); Total Protein,Serum 7.1 g/dl (6.3-8.2); Triglycerides 205 mg/dl (30-150); Uric Acid 5.2 mg/dl (3.5-8.5)
[2025-03-24 03:53] LABS: Hemoglobin A1C 10.2 % (4.0-6.0)
--- OUTSIDE RECORDS SUMMARY | 2025-03-24 15:02 | XMS_ITS | Clinical Summary ---
Author Organization Healthcare Address [address] [place] [address] Care Team Providers Care Artists' Booking Representative Name Role Phone Adi Pickard MD Primary Care Provider [phone] Allergies No known active allergies Medications Aspirin [...] Continuous Blood Gluc Sensor (Dexcom G6 Sensor) [facility] 05/27/20 21 Active Continuous Blood Gluc Transmit (Dexcom G6 transmitter) [facility] 04/26/20 21 Active Farxiga 10 MG tablet [...] due to stage 3b chronic kidney disease Hypertension 02/12/2017 Proteinuria 02/12/2017 Resolved Problems Problem Noted Date Diagnosed Date Resolved Date Acute kidney injury superimposed on CKD 02/12/2017 02/15/2025 Family History Medical History Relation Name Comments [...] any time in the past 12 m [facility], were you homeless or living in a assisted (including now)? No 04/30/2024 Utilities Answer Date [...] Description 04/03/2025 12:00 PM EST Office Visit [facility] [address] [place] [address] Krishna Austin MD [address] [place] [address] Health Maintenance Due Date Last Done Comments [facility]-Hepatitis C Screening 1945 [facility]-Medicare Annual Wellness (AWV) 1945 [facility]-/Child/Adol SDOH Screenings 1945 Diabetes: Dental Exam 11/25/1955 [facility]Y-DTaP,Tdap,and Td Vaccines (1 - Tdap) 1964 [facility]-Pneumococcal Vaccine: 50+ Years (1 of 2 - PCV) 1964 [facility]-Zoster Vaccines (1 of 2) 11/25/1995 [facility]Y-RSV Vaccine: 60+ Years or (1 - 1-dose 75+ series) 2020 [facility]-Diabetes: Hemoglobin A1C 07/28/2024 04/28/2024, 06/23/2019, 11/04/2018, Additional history exists [facility]-Depression Screening 10/07/2024 10/08/2023 UKY- SDOH Screenings 10/29/2024 UKY-Adult SDOH Screenings 10/29/2024 04/30/2024 [id number] Vaccine ( season) 2025 [facility]Y-Influenza Vaccine (#1) 2025 [facility]-Obesity Intervention Completed [...] 7.4(H) <5.7 % 04/29/2024 3:20 AM EST [facility] Blood Venous blood specimen / Unknown Venipuncture / Unknown 04/28/2024 9:59 PM EST 04/28/2024 10:05 PM EST Narrative [facility] - 04/29/2024 3:20 AM EST HA1C Interpretive Data: Diagnosis of Diabetes: Diabetic > or = 6.5% Pre-diabetic 5.7 to 6.4% Non-diabetic < or = 5.6% Glycemic Targets for Type I and Type II Diabetics: Non- Adults <7.0% Adults <6.0% Children and Adolescents <7.5% Source: [place] Diabetes Association. Standards of medical care in diabetes,2017. Diabetes Care.2017:40 (suppl 1):S1-S135. HbA1c assay performed by an ion-exchange chromatography method that is certified traceable to the DCCT. 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 Yes Care Teams Artists' Booking Representative Relationship Specialty Start Date End Date Adi Pickard MD [address] [place] [address] [address] [place] [address] PCP - General 10/08/20
--- OUTSIDE RECORDS SUMMARY | 2025-03-24 15:02 | XMS_ITS | Encounter Summary ---
Author Organization [facility] Address [address] [place] [address] Care Team Providers Care Cyber Analyst Name Role Phone Adi Pickard MD Primary Care Provider [phone] Encounter Details Date Type Department Care Team (Late st Contact Info) Description 06/11/2017 External CPT II CRAYON GRADER - [facility] Social History Tobacco Use [...] Description 05/06/2026 10:30 AM EST Office Visit [facility] C[facility] [address] [facility] [place] [address] Thomas Combs MD [address] [facility] [address] [place] [address] documented as of this encounter Visit Diagnoses Not on filedocumented in this encounter Care Teams Cyber Analyst Relationship Specialty Start Date End Date Adi Pickard MD [address] [place] [address] PCP - General 04/02/15 documented as of this encounter
--- OUTSIDE RECORDS SUMMARY | 2025-03-24 15:02 | XMS_ITS | Encounter Summary ---
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 [address] [place] [address] PCP - General 04/02/15 documented as of this encounter
--- OUTSIDE RECORDS SUMMARY | 2025-03-24 15:02 | XMS_ITS | Encounter Summary ---
Author Organization [facility] Address [address] [place] [address] Care Team Providers Care Ortho Rn Name Role Phone Adi Pickard MD Primary Care Provider [phone] Encounter Details Date Type Department Care Team (Late st Contact Info) Description 12/10/2017 External CPT II PHYSICAL EDUCATION DEPARTMENT CHAIR - [facility] Social History Tobacco Use [...] Description 05/06/2026 10:30 AM EST Office Visit [facility] [address] [facility] [place] [address] Thomas Combs MD [address] [facility] [address] [place] [address] documented as of this encounter Visit Diagnoses Not on filedocumented in this encounter Care Teams Ortho Rn Relationship Specialty Start Date End Date Adi Pickard MD [address] [place] [address] PCP - General 04/02/15 documented as of this encounter
--- OUTSIDE RECORDS SUMMARY | 2025-03-24 15:02 | XMS_ITS | Encounter Summary ---
Author Organization [facility] Address [address] [place] [address] Care Team Providers Care Application Defense Manager Name Role Phone Adi Pickard MD Primary Care Provider [phone] Encounter Details Date Type Department Care Team (Late st Contact Info) Description 06/12/2018 External CPT II APPROVER - [facility] Social History Tobacco Use [...] Description 05/06/2026 10:30 AM EST Office Visit [facility] [address] [facility] [place] [address] Thomas Combs MD [address] [facility] [address] [place] [address] documented as of this encounter Visit Diagnoses Not on filedocumented in this encounter Care Teams Application Defense Manager Relationship Specialty Start Date End Date Adi Pickard MD [address] [place] [address] PCP - General 04/02/15 documented as of this encounter
--- OUTSIDE RECORDS SUMMARY | 2025-03-24 15:03 | XMS_ITS | Clinical Summary ---
Author Organization [facility] Address [address] [place] [address] Care Team Providers Care Seamless Tube Drawer Name Role Phone Adi Pickard MD Primary Care Provider [phone] Allergies No known active allergies Medications metoprolol [...] 2 (Two) Times a Day. 60 each 05/09/2018 1:18 PM EST 05/09/20 18 Active HYDROcodone-acetam inophen (NORCO) 7.5-325 MG per tablet Take 1 tablet by mouth Every 4 (Four) Hours As Needed for Moderate Pain . 40 tablet 05/09/2018 1:18 PM EST 05/09/20 18 Active NovoLOG [...] MG tablet As Needed. 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 Not on file [...] Description 05/06/2026 10:30 AM EST Office Visit [facility] [address] [place] [address] [place] [address] Thomas Combs MD [address] [facility] [address] [place] [address] Health Maintenance Due Date Last Done Comments COVID-19 Vaccine (#1) 1950 DIABETIC FOOT EXAM 11/25/1955 URINE MICROALBUMIN-CREATININ E [...] series) 2020 DIABETIC EYE EXAM 05/03/2022 05/03/2021 LIPID PANEL 05/08/2024 05/08/2023, 01/2023, 02/03/2022, Additional history exists HEMOGLOBIN A1C 10/27/2024 04/28/2024, 06/2023, 05/08/2023, Additional history exists INFLUENZA VACCINE 12/26/2024 Medical Devices Implanted Type Area Caustic Plant Worker Device Identifier Shelf Expiration Date Model / Serial / Lot Shll Acet R3 3h Std 56mm - [id number] Implanted:Qty: 1 on 05/08/2018 by Roque Vann MD at [facility] Implant Left: Hip MOORE AND NEPHEW 03/16/2028 [id number] / / [id number] Scrw Sph Hd Reflection 6.5x20mm - [id number] Implanted:Qty: 1 on 05/08/2018 by Roque Vann MD at [facility] Implant Left: Hip MOORE AND NEPHEW 09/03/2027 [id number] / / [id number] Liner Acet R3 Xlpe 0d 57y55ly - [id number] Implanted:Qty: 1 on 05/08/2018 by Roque Vann MD at [facility] Implant Left: Hip MOORE AND NEPHEW 10/29/2027 [id number] / / [id number] Scrw Sph Hd Reflection 6.5x25mm - [id number] Implanted:Qty: 1 on 05/08/2018 by Roque Vann MD at [facility] Implant Left: Hip MOORE AND NEPHEW 02/01/2028 [id number] / / [id number] Stem Polarstem W/Colr Std Sz3 - [id number] Implanted:Qty: 1 on 05/08/2018 by Roque Vann MD at [facility] Implant Left: Hip MOORE AND NEPHEW 06/25/2024 [id number] / / [id number] Hd Fem Tandem 05/10 Tpr Cocr 36mm Pls4 - [id number] Implanted:Qty: 1 on 05/08/2018 by Roque Vann MD at [facility] Implant Left: Hip MOORE AND NEPHEW 03/23/2028 [id number] / / [id number] Totl Hip Std Moore Nephew - [id number] Implanted:Qty: 1 on 05/08/2018 by Roque Vann MD at [facility] Implant Left: Hip MOORE AND NEPHEW CAPHIPTOTAL SN1 / / Heart Stents Procedures Procedure Name Priority Date/Time Associated Diagnosis Comments HEMOGLOBIN A1C Routine 04/25/2018 3:27 PM EST HM COLONOSCOPY Routine 09/25/2001 from Last 3 Months or Most Recently Relevant to Health Maintenance Results * (ABNORMAL) Hemoglobin A1c (04/25/2018 3:27 PM EST) Hemoglobin A1C 9.00(H) 4.80 - 5.60 % 04/25/2018 4:00 PM EST [facility] Blood Venipuncture / Unknown 04/25/2018 3:27 PM EST 04/25/2018 3:40 PM EST Narrative [facility] - 04/25/2018 4:00 PM EST The [place] [employer] recommends maintenance of Hemoglobin A1C at 7.0% or lower. Goals for Hemoglobin A1C reduction may need to be modified if hypoglycemia is a problem. Roque Vann MD LAB BLOOD ORDERABLES Final Resu lt [facility]
[address] [place] [address], * COLONOSCOPY (09/25/2001) Colonoscopy colonoscopy Historical Provider HEALTH MAINTENANCE Final Result from Last 3 Months or Most Recently Relevant to Health Maintenance Insurance [address] [place] [address] [facility] Advance Directives Documents on File Type Date Recorded Patient General Surgeon Expl anation POWER OF MASTER CHEF - SCAN 05/10/2018 6:47 AM DURABLE POWER OF MASTER CHEF 08/16/2016 LIVING WILL - SCAN 05/10/2018 6:47 AM ADELAIDE ING WILL 08/16/2016 * CPR (Attempt to Resuscitate) (Latest Code Status on File) Date Activated Date Inactivated Comments 05/08/2018 4:59 PM 05/09/2018 4:07 PM Question Answer Comments Code Status (Patient has no pulse and is not breathing): CPR (Attempt to Resuscitate) Medical Interventions (Patie nt has pulse or is breathing): Full Care Teams Seamless Tube Drawer Relationship Specialty Start Date End Date Adi Pickard MD [address] [place] [address] [address] [facility] [place] [address] PCP - General 04/02/15
== END 2025-03-23 23:59 | disposition home or self-care (01) ==
LOC: LAB.DROPOF 03-24 14:47
PROVIDERS: PCP Internal Medicine; Visit Provider Internal Medicine
DX: E78.5 Hyperlipidemia, unspecified (principal); E11.42 Type 2 diabetes mellitus with diabetic polyneuropathy; E11.59 Type 2 diabetes mellitus with other circulatory complications; I12.9 Hypertensive chronic kidney disease with stage 1 through stage 4 chronic kidney disease, or unspecified chronic kidney disease; N18.4 Chronic kidney disease, stage 4 (severe); M10.9 Gout, unspecified
CPT/HCPCS: 80053; 80061; 83036; 84550; 85025

== ENCOUNTER 2025-03-31 10:00 | Outpatient (CLI) | payer MEDICARE, BC, SELFPAY ==
[2025-03-31 13:19] LABS: Microscopic, Urine URINE MICROSCOPIC (MICROSCOPIC)
[2025-03-31 13:40] LABS: Hematocrit 54.1 % (42.0-52.0); Hemoglobin 17.5 g/dL (14.1-18.0); Immature Granulocytes % 0.5 %; Mean Corpuscular HGB Conc 32.3 g/dL (31.8-35.4); Mean Corpuscular Hemoglobin 29.6 pg (27.0-31.2); Mean Corpuscular Volume 91.4 fl (80-94); Nucleated Red Blood Cells % 0 %; Platelet Count 117 K/mm3 (142-424); Red Blood Count 5.92 M/mm3 (4.60-6.20); Red Cell Distribution Width-SD 46.2 fL; White Blood Count 6.5 K/mm3 (4.8-10.8)
[2025-03-31 14:11] LABS: Alanine Aminotransferase 39 U/L (12-78); Albumin Level 4.1 g/dl (3.5-5.0); Albumin/Globulin Ratio 1.3 (1.1-1.8); Alkaline Phosphatase 83 U/L (38-126); Anion Gap 13.1 mEq/L (5-15); Aspartate Amino Transferase 37 U/L (17-59); Bilirubin,Total 0.7 mg/dl (0.2-1.3); Blood Urea Nitrogen 26 mg/dl (9-20); Calcium 8.5 mg/dl (8.4-10.2); Carbon Dioxide 28 mmol/L (22.0-30.0); Chloride 102 mmol/L (98-107); Creatinine,Serum 1.40 mg/dl (0.66-1.25); Estimated Glomerular Filt Rate 49 ml/min (>60); GFR (African American) 59 ML/MIN (>60); Globulin 3.1 g/dL (1.3-3.2); Glucose 190 mg/dl (74-100); Phosphorous 2.9 mg/dl (2.5-4.5); Potassium 4.1 mmoL/L (3.5-5.1); Sodium 139 mmol/L (136-145); Total Protein,Serum 7.2 g/dl (6.3-8.2)
[2025-03-31 15:08] LABS: Bilirubin,Urine Negative (Negative); Color,Urine YELLOW (Yellow); Glucose,Urine (UA) 3+ (Negative); Ketones,Urine Negative (Negative); Leukocyte Esterase,Urine 1+ (Negative); PH,Urine 5.5 (5.0-8.5); Protein,Urine 1+ (Negative); Specific Gravity, Urine 1.015 (1.005-1.030); Urobilinogen,Urine 0.2 EU/dl (0.2)
[2025-03-31 20:05] LABS: Bacteria,Urine 3+ /lpf; RBC,Urine 20-50 #/hpf (0-3)
[2025-03-31 20:06] LABS: WBC,Urine TNTC #/hpf (0-3)
--- OUTSIDE RECORDS SUMMARY | 2025-04-01 20:59 | XMS_ITS | Encounter Summary ---
Author Organization [facility] Address [address] [place] [address] Care Team Providers Care Retail Selling Specialist Name Role Phone Adi Pickard MD Primary Care Provider [phone] Encounter Details Date Type Department Care Team (Late st Contact Info) Description 06/12/2018 External CPT II AUTO WINDER - [facility] Social History Tobacco Use [...] 10:30 AM EST Office Visit [facility] [address] [facility] [place] [address] Thomas Combs MD [address] [facility] [address] [place] [address] documented as of this encounter Visit Diagnoses Not on filedocumented in this encounter Care Teams Retail Selling Specialist Relationship Specialty Start Date End Date Adi Pickard MD [address] [place] [address] PCP - General 04/02/15 documented as of this encounter
--- OUTSIDE RECORDS SUMMARY | 2025-04-01 20:59 | XMS_ITS | Encounter Summary ---
Author Organization [facility] Address [address] [place] [address] Care Team Providers Care Cellophane Casting Machine Repairer Name Role Phone Adi Pickard MD Primary Care Provider [phone] Encounter Details Date Type Department Care Team (Late st Contact Info) Description 06/11/2017 External CPT II REPAIRER CYLINDER HEADS - [facility] Social History Tobacco Use [...] Description 05/06/2026 10:30 AM EST Office Visit [facility] [address] [facility] [place] [address] Thomas Combs MD [address] [facility] [address] [place] [address] documented as of this encounter Visit Diagnoses Not on filedocumented in this encounter Care Teams Cellophane Casting Machine Repairer Relationship Specialty Start Date End Date Adi Pickard MD [address] [place] [address] PCP - General 04/02/15 documented as of this encounter
--- OUTSIDE RECORDS SUMMARY | 2025-04-01 20:59 | XMS_ITS | Clinical Summary ---
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 [...] Description 05/06/2026 10:30 AM EST Office Visit [facility] [address] [place] [address] [place] [address] Thomas Combs MD [address] [facility] [address] [place] [address] Health Maintenance Due Date Last [...] VACCINE 12/26/2024 Medical Devices Implanted Type Area Printing Manager Device Identifier Shelf Expiration Date Model / Serial / Lot Shll Acet R3 3h Std 56mm - [id number] Implanted:Qty: 1 on 05/08/2018 by Roque Vann MD at [facility] Implant Left: Hip MOORE AND NEPHEW 03/16/2028 [id number] / / [id number] Scrw Sph Hd Reflection 6.5x20mm - [id number] Implanted:Qty: 1 on 05/08/2018 by Roque Vann MD at [facility] Implant Left: Hip MOORE AND NEPHEW 09/03/2027 [id number] / / [id number] Liner Acet R3 Xlpe 0d 47m47ns - [id number] Implanted:Qty: 1 on 05/08/2018 by Roque Vann MD at [facility] Implant Left: Hip MOORE AND NEPHEW 10/29/2027 [id number] / / [id number] Scrw Sph Hd Reflection 6.5x25mm - [id number] Implanted:Qty: 1 on 05/08/2018 by Roque Vann MD at [facility] Implant Left: Hip MOORE AND NEPHEW 02/01/2028 [id number] / / [id number] Stem Polarstem W/Colr Std Sz3 - [id number] Implanted:Qty: 1 on 05/08/2018 by Roque Vann MD at [facility] Implant Left: Hip MOORE AND NEPHEW 06/25/2024 [id number] / / [id number] Hd Fem Tandem 05/10 Tpr Cocr 36mm Pls4 - [id number] Implanted:Qty: 1 on 05/08/2018 by Roque Vann MD at [facility] Implant Left: Hip MOORE AND NEPHEW 03/23/2028 [id number] / / [id number] Totl Hip Std Moore Nephew - [id number] Implanted:Qty: 1 on 05/08/2018 by Roque Vann MD at [facility] Implant Left: Hip MOORE AND NEPHEW CAPHIPTOTAL SN1 / / Heart Stents Procedures Procedure Name Priority Date/Time Associated Diagnosis Comments HEMOGLOBIN A1C Routine 04/25/2018 3:27 PM EST HM COLONOSCOPY Routine 09/25/2001 from Last 3 Months or Most Recently Relevant to Health Maintenance Results * (ABNORMAL) Hemoglobin A1c (04/25/2018 3:27 PM EST) Hemoglobin A1C 9.00(H) 4.80 - 5.60 % 04/25/2018 4:00 PM EST [facility] Blood Venipuncture / Unknown 04/25/2018 3:27 PM EST 04/25/2018 3:40 PM EST Narrative [facility] - 04/25/2018 4:00 PM EST The [place] Diabetes Association recommends maintenance of Hemoglobin A1C at 7.0% or lower. Goals for Hemoglobin A1C reduction may need to be modified if hypoglycemia is a problem. Roque Vann MD LAB BLOOD ORDERABLES Final Resu lt [facility]
[address] [place] [address], * COLONOSCOPY (09/25/2001) Colonoscopy colonoscopy Historical Provider HEALTH MAINTENANCE Final Result from Last 3 Months or Most Recently Relevant to Health Maintenance Insurance [address] [place] [address] [facility] Advance Directives Documents on File Type Date Recorded Patient Second Cook And Baker Expl anation POWER OF TERMINAL CLERK - SCAN 05/10/2018 6:47 AM DURABLE POWER OF TERMINAL CLERK 08/16/2016 LIVING WILL - SCAN 05/10/2018 6:47 AM ADELAIDE ING WILL 08/16/2016 * CPR (Attempt to Resuscitate) (Latest Code Status on File) Date Activated Date Inactivated Comments 05/08/2018 4:59 PM 05/09/2018 4:07 PM Question Answer Comments Code Status (Patient has no pulse and is not breathing): CPR (Attempt to Resuscitate) Medical Interventions (Patie nt has pulse or is breathing): Full Care Teams Internal Security Manager Relationship Specialty Start Date End Date Adi Pickard MD [address] [place] [address] [address] [facility] [address] PCP - General 04/02/15
--- OUTSIDE RECORDS SUMMARY | 2025-04-01 20:59 | XMS_ITS | Encounter Summary ---
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 file Not o n file documented as of this encounter Plan of Treatment Upcoming Encounters Date Type Department Care Team (Late st Contact Info) Description 05/06/2026 10:30 AM EST Office Visit [facility] C[facility] [address] [place] [address] [place] [address] Thomas Combs MD [address] [facility] [address] [place] [address] documented as of this encounter Visit Diagnoses Not on filedocumented in this encounter Care Teams Pipeline Superintendent Division Relationship Specialty Start Date End Date Adi Pickard MD [address] [facility] [address] [place] [address] PCP - General 04/02/15 documented as of this encounter
--- OUTSIDE RECORDS SUMMARY | 2025-04-01 20:59 | XMS_ITS | Encounter Summary ---
Author Organization [facility] Address [address] [place] [address] Care Team Providers Care Rack Maker Name Role Phone Adi Pickard MD Primary Care Provider [phone] Encounter Details Date Type Department Care Team (Late st Contact Info) Description 12/10/2017 External CPT II CYTOLOGY TEACHER - [facility] Social History Tobacco Use [...] Description 05/06/2026 10:30 AM EST Office Visit [facility] [address] [facility] [place] [address] Thomas Combs MD [address] [facility] [address] [place] [address] documented as of this encounter Visit Diagnoses Not on filedocumented in this encounter Care Teams Rack Maker Relationship Specialty Start Date End Date Adi Pickard MD [address] [place] [address] PCP - General 04/02/15 documented as of this encounter
--- OUTSIDE RECORDS SUMMARY | 2025-04-01 20:59 | XMS_ITS | Clinical Summary ---
Author Organization [facility] Address [address] [place] [address] Care Team Providers Care Rail Transit Operator Name Role Phone Adi Pickard MD Primary Care Provider [phone] Allergies No known active allergies Medications Aspirin [...] Continuous Blood Gluc Sensor (Dexcom G6 Sensor) [facility] 05/27/20 21 Active Continuous Blood Gluc Transmit (Dexcom G6 transmitter) [facility] [place] 04/26/20 21 Active Farxiga 10 MG tablet [...] any time in the past 12 m [facility], were you homeless or living in [...] 04/03/2025 12:00 PM EST Office Visit [facility] [address] [place] [address] Krishna Austin MD [address] [place] [address] Health Maintenance Due Date Last [...] Screenings 10/29/2024 [facility]-Adult SDOH Screenings 10/29/2024 04/30/2024 [id number] Vaccine ( season) 2025 [facility]-Influenza Vaccine (#1) [...] 7.4(H) <5.7 % 04/29/2024 3:20 AM EST [facility] Blood Venous blood specimen / Unknown Venipuncture / Unknown 04/28/2024 9:59 PM EST 04/28/2024 10:05 PM EST Narrative [facility] - 04/29/2024 3:20 AM EST HA1C Interpretive Data: Diagnosis of Diabetes: Diabetic > or = 6.5% Pre-diabetic 5.7 to 6.4% Non-diabetic < or = 5.6% Glycemic Targets for Type I and Type II Diabetics: Non- Adults <7.0% Adults <6.0% Children and Adolescents <7.5% Source: [place] Diabetes Association. Standards of medical care in diabetes,2017. Diabetes Care.2017:40 (suppl 1):S1-S135. HbA1c assay performed by an ion-exchange chromatography method that is certified traceable to the DCCT. Nacho CORONADO LAB BLOOD ORDERABLES Final Result [facility] [address] [place] [address] from Last 3 Months or Most Recently Relevant to Health Maintenance Additional Health Concerns Infection Onset Date Last Indicated Enteropathogenic E. coli (EPEC) 04/29/2024 04/29/2024 [place] [address] Advance Directives * Full Code (Latest Code Status on File) Date Activated Date Inactivated Comments 04/28/2024 11:56 PM 05/01/2024 5:10 PM Question Answer Comments Patient has decision-making capacity? Yes Care Teams Rail Transit Operator Relationship Specialty Start Date End Date Adi Pickard MD [address] [place] [address] [address] [place] [address] PCP - General 10/08/20
== END 2025-03-31 23:59 | disposition home or self-care (01) ==
LOC: LAB.DROPOF 04-01 20:58
PROVIDERS: PCP Internal Medicine; Visit Provider Internal Medicine
DX: E83.9 Disorder of mineral metabolism, unspecified (principal); M89.9 Disorder of bone, unspecified; R14.0 Abdominal distension (gaseous); I25.10 Atherosclerotic heart disease of native coronary artery without angina pectoris; E78.5 Hyperlipidemia, unspecified; M15.0 Primary generalized (osteo)arthritis; E11.42 Type 2 diabetes mellitus with diabetic polyneuropathy; I12.9 Hypertensive chronic kidney disease with stage 1 through stage 4 chronic kidney disease, or unspecified chronic kidney disease; N18.4 Chronic kidney disease, stage 4 (severe); D63.1 Anemia in chronic kidney disease; N40.1 Benign prostatic hyperplasia with lower urinary tract symptoms
CPT/HCPCS: 80053; 80069; 81001; 82570; 85025; 87086

== ENCOUNTER 2025-04-08 07:13 | Day surgery (SDC) | payer MEDICARE, BC, SELFPAY ==
--- NOTE | 2025-04-05 11:13 | EXP.HP ---
History of Present Illness *Admission Date: 04/08/25 *History of present illness: Mr. Simpson is a 79-year-old gentleman who is here for diagnostic EGD and colonoscopy. He has had nausea, vomiting and loss of appetite. In 2023, he was diagnosed with E. coli gastroenteritis and ended up at the [facility] for treatment. At that time, he was having up to 20 bowel movements a day and this eventually resolved but he still has variable bowel movements. He has had a lot of excessive belching, gassiness and bloating. He does get some heartburn or reflux as well as dysphagia. He does state that food will get hung up about once a month in the mid retrosternal region and he will have to regurgitate. He does state that his bowel movements vary between hard stools and constipation to mushy loose stools and some diarrhea. He reports no blood or mucus with his bowel movements. He has been on Ozempic but states that his symptoms started long before this. He does state that his last colonoscopy was with me about 20 years ago. The examination is deemed medically necessary for diagnostic EGD and colonoscopy. The patient has been seen, interviewed and examined prior to the procedure by both myself and the anesthesia provider. [facility] Disclaimer: The information contained in this section may have been updated after the patient was seen, as this information can be updated by other users. Medical History Hypertension Edema of both lower extremities Gout Diabetes mellitus with diabetic polyneuropathy Surgical History History of total hip replacement History of neck surgery Family History (Updated 04/08/25 @ 08:20 by Rosemary Santos RN) Other Cancer Heart attack Social History (Updated 04/08/25 @ 09:26 by Lex Shi CRNA) Smoking Status: Never smoker second hand exposure: No alcohol intake: never substance use type: denies use current occupational status: retired Travel in the last 8 weeks?: None household members: none housing: house caffeine: No Have you lived/traveled outside [place] in past 30 days?: No Contact w/someone who lives/traveled outside [place] past 30 days?: No Exposure to someone with infectious disease in past 14 days?: No Do you have a fever (greater than 100.4 F or 38 C)?: No Have you tested positive for COVID-19?: No Exposed to someone with COVID-19 in past 14 days?: No Do you have a sore throat?: No Do you have a cough?: No Do you have any weakness?: No Are you experiencing any nausea/vomitting?: No Do you have any diarrhea?: No Are you experiencing any unusual bleeding?: No Do you have any muscle aches/pain?: No Do you have any abdominal pain?: No Are you experiencing loss of taste or smell?: No Other Medical History Have you received the Flu Vaccine for this season: No Have you received the Pneumonia Vaccine: No Review of Systems Review of Systems Review of systems (narrative): Negative *Cardiovascular Comments: Negative *Gastrointestinal Comments: Negative *Genitourinary Comments: Negative *Musculoskeletal Comments: Negative *Neurologic Comments: Negative Meds Home Medications and Allergies Home Medications ?Medication ?Instructions ?Recorded ?Confirmed ?Type aspirin 81 mg tablet,delayed 81 mg PO DAILY heart health 06/01/21 04/07/25 History release pen needle, diabetic 32 gauge x #100 ea 02/15/24 04/07/25 Rx (BD Ultra-Fine Sada Pen Needle) blood-glucose transmitter (Dexcom #1 ea 05/16/24 04/07/25 Rx G6 Transmitter device) allopurinol 100 mg tablet See Rx Instructions .Route 09/18/24 04/07/25 Rx .COMPLEX #180 tabs dapagliflozin propanediol 10 mg See Rx Instructions .Route 09/18/24 04/07/25 Rx tablet (Farxiga) .COMPLEX #90 tabs pravastatin 40 mg tablet See Rx Instructions .Route 09/18/24 04/07/25 Rx .COMPLEX #90 tabs cyanocobalamin (vitamin B-12) See Rx Instructions .Route 10/21/24 04/07/25 Rx 1,000 mcg tablet .COMPLEX #90 tabs insulin glargine 100 unit/mL (3 See Rx Instructions .Route 10/21/24 04/07/25 Rx mL) subcutaneous pen (Lantus .COMPLEX #45 mL Solostar U-100 Insulin) blood-glucose sensor (Dexcom G6 #3 ea 10/24/24 04/07/25 Rx Sensor device) doxazosin 2 mg tablet See Rx Instructions .Route 11/04/24 04/07/25 Rx .COMPLEX #90 tabs escitalopram oxalate 10 mg tablet 10 mg PO DAILY #30 tabs 12/18/24 04/07/25 Rx gabapentin 100 mg capsule 100 mg PO QHS Pain #90 caps 01/28/25 04/07/25 Rx colchicine 0.6 mg tablet 0.6 mg PO DAILY 01/29/25 04/07/25 History loratadine 10 mg capsule (Allergy 10 mg PO DAILY 01/29/25 04/07/25 History Relief (loratadine)) tamsulosin 0.4 mg capsule 0.4 mg PO DAILY 01/29/25 04/08/25 History hydroxyzine HCl 25 mg tablet 25 mg PO HS PRN itching/insomnia 02/04/25 04/07/25 Rx #90 tabs Novolog FlexPen U-100 Insulin 100 See Rx Instructions .Route 02/17/25 04/07/25 Rx unit/mL (3 mL) subcutaneous .COMPLEX #15 mL (insulin aspart U-100) ondansetron 4 mg disintegrating See Rx Instructions .Route 02/17/25 04/08/25 Rx tablet .COMPLEX #30 tabs semaglutide 0.25 mg or 0.5 mg (2 See Rx Instructions .Route 02/17/25 04/07/25 Rx mg/3 mL) subcutaneous pen injector .COMPLEX #3 mL (Ozempic) nystatin 100,000 unit/gram topical 1 applic topical QID PRN Rash in 03/16/25 04/08/25 Rx cream skin folds #60 grams lisinopril 10 mg tablet 10 mg PO DAILY #90 tabs 03/23/25 04/07/25 Rx metoprolol tartrate 50 mg tablet See Rx Instructions .Route 03/23/25 04/07/25 Rx .COMPLEX #180 tabs sodium,potassium,mag sulfates 17.5 See Rx Instructions PO .COMPLEX 03/25/25 04/07/25 Rx gram-3.13 gram-1.6 gram oral soln #354 mL (Suprep Bowel Prep Kit) New Prescriptions to Start Prescriptions: Allergies Allergy/AdvReac Type Severity Reaction Status Date / Time No Known Allergies Allergy Verified 04/08/25 08:11 Exam *Routine HEENT Exam Head: Present normocephalic Eye: Present EOMI and PERRL ENT: Present mucous membranes moist *Routine Neck Exam Neck: Present supple *Routine Respiratory Exam Respiratory: Present CTA bilaterally *Routine Cardiovascular Exam Cardiovascular: Present RRR *Routine Abdominal Exam Abdominal: Present soft and normoactive bowel sounds; Absent tenderness *Routine Rectal Exam Rectal:: deferred *Routine Genitalia Exam Genitalia:: deferred *Routine Extremities Exam Extremities: Absent cyanosis, clubbing or edema *Routine Skin Exam Skin: Present warm; Absent rash *Routine Neurological Exam Neurological: Present alert and oriented X3 Assessment and Plan *Assessment and plan (1) Nausea with vomiting, unspecified: Status: Chronic Category: Medical Code(s): R11.2 - Nausea with vomiting, unspecified (2) Bloating: Status: Chronic Category: Medical Code(s): R14.0 - Abdominal distension (gaseous) (3) Belching: Status: Acute Category: Medical Code(s): R14.2 - Eructation (4) GERD (gastroesophageal reflux disease): Status: Acute Category: Medical Code(s): K21.9 - Gastro-esophageal reflux disease without esophagitis (5) Dysphagia: Status: Acute Category: Medical Code(s): R13.10 - Dysphagia, unspecified (6) Alternating constipation and diarrhea: Status: Acute Category: Medical Code(s): R19.8 - Other specified symptoms and signs involving the digestive system and abdomen (7) Change in bowel habits: Status: Acute Category: Medical Code(s): R19.4 - Change in bowel habit Plan A/P: 1. Nausea, vomiting, belching, GERD and dysphagia for upper endoscopy and change in bowel habits with mixed alternating constipation and diarrhea with colonoscopy is the preprocedural diagnosis. The patient will be anesthetized/sedated using MAC sedation. The patient has been seen and examined. Cardiac and lung assessment prior to the examination is stable. Proceed with planned EGD and colonoscopy.
[2025-04-07 13:03] VITALS: BMI 33.0
--- NOTE | 2025-04-08 06:59 | P.PCN_ITS ---
[facility] Procedure Note Date: 04/08/25 Time: 09:43 Procedure Note:: Upper Endoscopy Procedure Report: Esophagogastroduodenoscopy with cold biopsies and TTS balloon dilation Endoscopost: Yusuf Caldera II, MD Referring Physician: Adi Pickard MD Date of Procedure: April 08, 2025 Equipment: Olympus GIF-1100 standard upper endoscope Sedation: MAC sedation Indications: Mr. Simpson is a 79-year-old gentleman who is here for diagnostic EGD and colonoscopy. He has had nausea, vomiting and loss of appetite. In 2023, he was diagnosed with E. coli gastroenteritis and ended up at the [facility] for treatment. At that time, he was having up to 20 bowel movements a day and this eventually resolved but he still has variable bowel movements. He has had a lot of excessive belching, gassiness and bloating. He does get some heartburn or reflux as well as dysphagia (to solids not liquids). He does state that food will get hung up about once a month in the mid retrosternal region and he will have to regurgitate. He does state that his bowel movements vary between hard stools and constipation to mushy loose stools and some diarrhea. He reports no blood or mucus with his bowel movements. He has been on Ozempic but states that his symptoms started long before this. He does state that his last colonoscopy was with me about 20 years ago. The patient reports no family history of esophageal, gastric or colon cancer. The examination is deemed medically necessary for diagnostic EGD and colonoscopy. Procedure: Prior to the procedure, a history and physical exam was performed, and patient's medications and allergies were reviewed. The risks, benefits and alternatives of the sedation and procedure were discussed with the patient. All questions were answered and informed consent was obtained. The patient was brought to the procedure room. Patient identification and proposed procedure were verified by the physician and the nurse. The patient was placed in a left lateral decubitus position and the scope was passed under direct vision. Throughout the proce dure, the patient's blood pressure, pulse, and oxygen saturations were monitored continuously. The upper GI endoscopy was accomplished without difficulty. The patient tolerated the procedure well. Findings: The scope was passed directly into the upper esophagus and advanced to the third portion of the duodenum. The post bulbar duodenum, ampulla and duodenal bulb were normal with normal mucosa and conniventes. 2 cold biopsies were taken from the second portion of the duodenum for the disaccharidase assay. The scope was withdrawn through a normal duodenal bulb and pylorus into the stomach. There was very mild antral gastropathy. The body and fundus of the stomach were normal. Cold biopsies were taken from the incisura to rule out H. pylori. Upon retroflexion there was no hiatal hernia. The scope was then withdrawn into the esophagus. There was no evidence of reflux esophagitis or Owens's. There were no rings, strictures, webs, corrugation or furrowing. There were tertiary contractions and evidence of mild esophageal dysmotility. The entire esophagus was dilated to 60 Vincentian/20 mm with a TTS hydrostatic balloon. There was mild resistance at the cricopharyngeus. The remainder of the esophageal mucosa was normal. Impression: 1. Nonerosive GERD with mild esophageal dysmotility 2. Mild antral reactive gastropathy Plan: I will follow-up the biopsies and disaccharidase assay. I will proceed with diagnostic colonoscopy.
--- NOTE | 2025-04-08 06:59 | P.PCN_ITS ---
[facility] Procedure Note Date: 04/08/25 Time: 10:01 Procedure Note:: Colonoscopy Procedure Report: Colonoscopy with cold snare polypectomy and cold biopsies Endoscopist: Yusuf Caldera II, MD Referring physician: Adi Pickard MD Date of Procedure: April 08, 2025 Equipment: Olympus [id number] adult colonoscope Sedation: MAC sedation Indication: Mr. Simpson is a 79-year-old gentleman who is here for diagnostic EGD and colonoscopy. He has had nausea, vomiting and loss of appetite. In 2023, he was diagnosed with E. coli gastroenteritis and ended up at the [facility] for treatment. At that time, he was having up to 20 bowel movements a day and this eventually resolved but he still has variable bowel movements. He has had a lot of excessive belching, gassiness and bloating. He does get some heartburn or reflux as well as dysphagia (to solids not liquids). He does state that food will get hung up about once a month in the mid retrosternal region and he will have to regurgitate. He does state that his bowel movements vary between hard stools and constipation to mushy loose stools and some diarrhea. He reports no blood or mucus with his bowel movements. He has been on Ozempic but states that his symptoms started long before this. He does state that his last colonoscopy was with me about 20 years ago. The patient reports no family history of esophageal, gastric or colon cancer. The examination is deemed medically necessary for diagnostic EGD and colonoscopy Procedure: Prior to the procedure, a history and physical exam was performed, and patient's medications and allergies were reviewed. The risks, benefits and alternatives of the sedation and procedure were discussed with the patient. All questions were answered and informed consent was obtained. The patient was brought to the procedure room. Patient identification and proposed procedure were verified by the physician and the nurse. The patient was placed in a left lateral decubitus position and the scope was passed under direct vision. Throughout the procedure, the patient's blood pressure, pulse, and oxygen saturations were monitored continuously. The colonoscopy was accomplished without difficulty. The patient tolerated the procedure well. Findings: On digital rectal examination there was normal rectal tone. There were no external hemorrhoids. The prostate was 2-3+, mildly firm and mildly asymmetric without nodules. The colonoscope was introduced through the anal canal to the rectum and advanced to the cecum. The ileocecal valve and appendiceal orifice were identified. The scope was advanced a short distance into the ileum which appeared grossly normal. The scope was then withdrawn into the colon. There were 4 colon polyps (cecum x 1 (3 mm), ascending x 1 (4 mm) and transverse x 2 (4 and 6 mm)). These were all removed via cold snare polypectomy. The remaining cecum, ascending and transverse colon and mucosa were grossly normal. Random cold biopsies were taken from the right colon to rule out microscopic colitis. There were scattered diverticuli throughout the descending and sigmoid colon (LEFT colon). The rectum itself was normal. Upon retroflexion within the rectum there were grade 2 internal hemorrhoids. The preparation was excellent throughout with [place] Preparation Score of 9. The cecal time was 14 minutes. Impression: 1. Diminutive colonic polyps x 4 2. Extensive left-sided diverticulosis 3. Grade 2 internal hemorrhoids Plan: I will follow-up the polyp histology. The patient will not require further preventative/screening colonoscopy. I will follow-up the random biopsies. I would recommend a fiber bowel regimen on a regular and daily basis.
[2025-04-08 08:20] VITALS: BP 158/88; PULSE 87; RESP 18; TEMP 36.1; O2SAT 97
[2025-04-08] MEDS: LACTATED RINGERS 1000ML 1,000 ML 50 ML IV (08:39)
[2025-04-08 08:44] LABS: POC Glucose,Bedside 253 gm/dL (70-110)
--- NOTE | 2025-04-08 09:24 | P.PNANES_ITS ---
[facility] Disclaimer: The information contained in this section may have been updated after the patient was seen, as this information can be updated by other users. Medical History Hypertension Edema of both lower extremities Gout Diabetes mellitus with diabetic polyneuropathy Surgical History History of total hip replacement History of neck surgery Family History (Updated 04/08/25 @ 08:20 by Rosemary Santos RN) Other Cancer Heart attack Social History (Updated 04/08/25 @ 08:21 by Rosemary Santos RN) Smoking Status: Never smoker second hand exposure: No alcohol intake: never substance use type: denies use current occupational status: retired Travel in the last 8 weeks?: None household members: none housing: house caffeine: No [facility] Anesthesia Checklist Patient Identification Patient Identification: Arm Band Structural Data Admitted From: Home Planned Operative Procedure/s: Colonoscopy Consent for Planned Operative Procedure(s) Verified: Yes Verified Documents: Surgical Consent and History and Physical NPO Status Verified Time NPO: 05:30 (finished prep) Additional verifications Anesthesia Reactions: No Airway Assessment Mallampati Score:: Class II C-Spine Mobility Assessed: Yes TMJ Mobility Assessed: Yes Dentition: Dentures-good fit (Pt has upper partial and states that they do not come out. He says they are glued in and are permanent. Risks of denture damage explained. ) Neurological Assessment Level of Consciousness: Awake, Alert and Appropriate Anesthesia Plan Anesthesia Risk discussed: Yes Anesthesia Plan: Verified ASA Class: III Anesthesia Type: MAC
[2025-04-08 10:03] VITALS: BP 101/50; PULSE 106; RESP 16; TEMP 36.6; O2SAT 92
[2025-04-08 10:13] VITALS: BP 105/45; PULSE 109; RESP 16; O2SAT 96
[2025-04-08 10:23] VITALS: BP 131/74; PULSE 98; RESP 16; O2SAT 96
[2025-04-08 10:33] VITALS: BP 145/96; PULSE 96; RESP 16; O2SAT 98
[2025-04-08 10:43] VITALS: BP 151/84; PULSE 95; RESP 16; O2SAT 96
[2025-04-13 09:17] LABS: Interpretation Notes (.); Lactase 7.48 (>/= 14.0); Maltase 98.88 (>/= 110.0); Palatinase 9.52 (>/= 8.5); Reference Notes (.); Sucrase 27.66 (>/= 25.0)
== END 2025-04-08 10:43 | disposition home or self-care (01) ==
PROVIDERS: PCP Internal Medicine; Visit Provider Internal Medicine Gastroenterology
PROC: 0DJ08ZZ Inspection of Upper Intestinal Tract, Via Natural or Artificial Opening Endoscopic (ICD-10-PCS; CPT 45378; principal; 2025-04-08 09:30)
DX: D12.2 Benign neoplasm of ascending colon (principal); D12.3 Benign neoplasm of transverse colon; K31.89 Other diseases of stomach and duodenum; K22.4 Dyskinesia of esophagus; K57.30 Diverticulosis of large intestine without perforation or abscess without bleeding; K64.1 Second degree hemorrhoids; K21.9 Gastro-esophageal reflux disease without esophagitis; K59.00 Constipation, unspecified; M10.9 Gout, unspecified; I10 Essential (primary) hypertension; E11.42 Type 2 diabetes mellitus with diabetic polyneuropathy; Z79.82 Long term (current) use of aspirin; Z79.84 Long term (current) use of oral hypoglycemic drugs; Z79.4 Long term (current) use of insulin; Z79.85 Long-term (current) use of injectable non-insulin antidiabetic drugs
CPT/HCPCS: 43239; 43249; 45380; 45385; 82657; 82962; C1726; J2003; J2371; J2704; J7120

== ENCOUNTER 2025-05-01 09:06 | Outpatient (CLI) | payer MEDICARE, BC, SELFPAY ==
[2025-05-01 10:49] LABS: Anion Gap 15.6 mEq/L (5-15); Blood Urea Nitrogen 29 mg/dl (9-20); Calcium 9.1 mg/dl (8.4-10.2); Carbon Dioxide 26 mmol/L (22.0-30.0); Chloride 103 mmol/L (98-107); Creatinine,Serum 1.40 mg/dl (0.66-1.25); Estimated Glomerular Filt Rate 49 ml/min (>60); GFR (African American) 59 ML/MIN (>60); Glucose 228 mg/dl (74-100); Potassium 4.6 mmoL/L (3.5-5.1); Sodium 140 mmol/L (136-145)
== END 2025-05-01 23:59 | disposition home or self-care (01) ==
LOC: LAB 09:08
PROVIDERS: PCP Internal Medicine; Visit Provider Student in an Organized Health Care Education/Training Program
DX: E11.59 Type 2 diabetes mellitus with other circulatory complications (principal)
CPT/HCPCS: 36415; 80048; 84681